=== PATIENT | female | born 1970 | race Caucasian/White ===

== ENCOUNTER 2020-08-09 14:04 | Outpatient (REF) | payer OTHER, SELFPAY ==
--- NOTE | 2020-08-09 14:13 | MM_ITS ---
EXAMINATION: BONE DENSITOMETRY CLINICAL INDICATION: Osteoporosis. COMPARISON: None (current study represents initial baseline exam). TECHNIQUE: Using a [employer] DXA System (software version: 13.1) manufactured by [employer] dual-energy x-ray absorptiometry was performed of the lumbar spine and left hip. The images are of good technical quality. Summary results are attached. FINDINGS: AP SPINE L1-L4: BMD 1.301 g/cm2, Z-score 0.6, T-score 1.0, normal. LEFT FEMUR, NECK: BMD 1.089 g/cm2, Z-score 0.6, T-score 0.4, normal. LEFT FEMUR, TOTAL: BMD 1.090 g/cm2, Z-score 0.5, T-score 0.7, normal. IDENTIFIED RISK FACTORS: Secondary osteoporosis, early menopause, hysterectomy, bilateral oophorectomy, anticonvulsants. HISTORY OF FRACTURE: None listed. MEDICATIONS: Calcium supplements or multivitamin, vitamin D, ERT/SERMS. MM/XR DEXA axial skeleton IMPRESSION: 1. DIAGNOSIS: Normal bone density based on the lowest T-score value of 0.4 in the femoral neck applying World Health Organization criteria. 2. 10-YEAR FRACTURE RISK PREDICTION, FRAX: Major osteoporotic fracture (clinical spine, forearm, hip or shoulder) 3.7%. Hip fracture 0.0%. 3. Treatment Recommendations: NOF guidelines recommend consideration for treatment in postmenopausal women and men age 50 and older presenting with the following: -A hip or vertebral (clinical or morphometric) fracture. -T-score less than or equal to -2.5 at the femoral neck or spine after appropriate evaluation to exclude secondary causes. -Low bone mass at the hip or spine and a 10-year fracture probability by FRAX of greater than or equal to 3% for hip fracture or greater than or equal to 20% for major osteoporotic fracture based on the [place] adapted WHO algorithm. 4. Other Recommendations: All treatment decisions require clinical judgment and consideration of individual patient factors, including patient preferences, comorbidities, previous drug use, risk factors not captured in the FRAX model (e.g. frailty, falls, vitamin D deficiency, increased bone turnover, interval significant decline in bone density) and possible under or overestimation of fracture risk by FRAX. FUTURE SCAN RECOMMENDATION: People with diagnosed cases of osteoporosis or at high risk for fracture should have regular bone mineral density tests. For patients eligible for Medicare, routine testing is allowed once every 2 years. The testing frequency can be increased to one year for patients who have rapidly progressing disease, those who are receiving or discontinuing medical therapy to restore bone mass, or have additional risk factors.
== END 2020-08-09 14:05 | disposition home or self-care (01) ==
LOC: HO.MAMMO 14:04
PROVIDERS: Visit Provider Internal Medicine
DX: Z13.820 Encounter for screening for osteoporosis (principal); Z78.0 Asymptomatic menopausal state; Z90.710 Acquired absence of both cervix and uterus; Z90.722 Acquired absence of ovaries, bilateral; Z79.899 Other long term (current) drug therapy
CPT/HCPCS: 77080

== ENCOUNTER → 2020-12-25 15:30 | Outpatient (BNVA) | payer OTHER, SELFPAY | PROVIDERS: PCP Internal Medicine; Visit Provider Internal Medicine ==

== ENCOUNTER 2021-01-16 07:26 | Outpatient (REF) | payer OTHER, SELFPAY ==
[2021-01-16 08:45] LABS: Anion Gap 12 (12-20); Blood Urea Nitrogen 20 mg/dL (9-16); Calcium 9.2 mg/dL (8.4-10.2); Carbon Dioxide 27 mmol/L (22-29); Chloride 108 mmol/L (96-108); Estimated Glomerular Filt Rate > 60; Glucose Random 87 mg/dL (60-115); Potassium 4.4 mmol/L (3.3-5.1); Sodium 143 mmol/L (135-145)
== END 2021-01-16 07:27 | disposition home or self-care (01) ==
LOC: HO.LAB 07:26
PROVIDERS: PCP Internal Medicine; Visit Provider Psychiatry & Neurology Neurology
DX: G40.209 Localization-related (focal) (partial) symptomatic epilepsy and epileptic syndromes with complex partial seizures, not intractable, without status epilepticus (principal)
CPT/HCPCS: 36415; 80048

== ENCOUNTER → 2021-06-28 15:06 | Outpatient (BNVA) | payer OTHER, SELFPAY | PROVIDERS: PCP Internal Medicine; Visit Provider Internal Medicine ==

== ENCOUNTER 2021-08-06 10:28 | Outpatient (REF) | payer OTHER, SELFPAY ==
[2021-08-06 10:31] LABS: MANUAL DIFF FLAG NO
[2021-08-06 10:43] LABS: Appearance Urine HAZY; Color Urine YELLOW; Glucose Urine UA NEG (NEG); Leukocyte Esterase Urine NEG (NEG); Nitrite Urine NEG (NEG); Specific Gravity - Urine 1.025 (1.005-1.025); Urine Blood NEG (NEG); Urine Ketones NEG (NEG); Urine Protein NEG (NEG-TRACE)
[2021-08-06 11:02] LABS: Basophils Percent Auto 0.8 % (0-2); Eosinophils Absolute Auto 0.1 X10*3/uL (0.0-0.4); Eosinophils Percent Auto 1.5 % (0-4); Hematocrit 37.4 % (37.0-47.0); Hemoglobin 12.1 g/dl (12.0-16.0); Imm Gran Abs Auto 0.01 X10*3/uL (0.00-0.03); Imm Gran Pct Auto 0.2 % (0.0-0.4); Lymphocytes Absolute Auto 1.6 X10*3/uL (1.2-4.9); Lymphocytes Percent Auto 30.9 % (20-40); Mean Corpuscular HGB Conc 32.4 g/dl (31.0-35.0); Mean Corpuscular Hemoglobin 30.1 pg (27.0-33.0); Mean Platelet Volume 11.2 fL (9.4-12.3); Monocytes Absolute Auto 0.4 X10*3/uL (0.1-1.2); Monocytes Percent Auto 8.5 % (2-11); Neutrophils Percent Auto 58.1 % (45-73); Platelet Count 196 X10*3/uL (160-400); Red Blood Count 4.02 X10*6/uL (4.20-5.50); Red Cell Distribution Width 12.8 % (11.0-16.0); White Blood Count 5.2 X10*3/uL (4.8-10.8)
[2021-08-06 11:18] LABS: Alanine Aminotransferase 12 U/L (0-31); Albumin Level 4.2 g/dL (3.5-5.0); Alkaline Phosphatase 56 U/L (39-117); Anion Gap 13 (12-20); Aspartate Amino Transferase 12 U/L (5-31); Bilirubin Total 0.6 mg/dL (0.0-1.0); Blood Urea Nitrogen 16 mg/dL (9-16); Calcium 8.8 mg/dL (8.4-10.2); Carbon Dioxide 24 mmol/L (22-29); Chloride 108 mmol/L (96-108); Cholesterol 203 mg/dL; Estimated Glomerular Filt Rate > 60; Glucose Fasting 91 mg/dL (60-99); HDL Cholesterol 66 mg/dL; Iron 111 mcg/dL (30-160); LDL Cholesterol Calculated 106 mg/dl; Percent Iron Saturation 38 % (15-50); Potassium 3.6 mmol/L (3.3-5.1); Sodium 141 mmol/L (135-145); Total Iron Binding Capacity 293 mcg/dL (228-428); Total Protein 6.7 g/dL (6.5-8.0); Triglycerides 155 mg/dL; Unsaturated Iron Binding 182 ug/dL
[2021-08-06 11:40] LABS: TSH reflex Free T4 1.79 uIU/mL (0.32-4.0)
== END 2021-08-06 10:29 | disposition home or self-care (01) ==
LOC: HO.LNP 10:28
PROVIDERS: Visit Provider Internal Medicine
DX: Z00.00 Encounter for general adult medical examination without abnormal findings (principal); D50.9 Iron deficiency anemia, unspecified; G40.909 Epilepsy, unspecified, not intractable, without status epilepticus; E06.3 Autoimmune thyroiditis
CPT/HCPCS: 80053; 80061; 81003; 83540; 84443; 85025

== ENCOUNTER 2021-09-06 14:42 | Outpatient (REF) | payer OTHER, SELFPAY ==
--- NOTE | ~2021-09-06 | MM_ITS ---
EXAMINATION: BONE DENSITOMETRY CLINICAL INDICATION: Encounter for screening for osteoporosis. COMPARISON: Baseline BD dated 08/09/2020. TECHNIQUE: Using a [employer] DXA System (software version: 13.1) manufactured by [employer], dual-energy x-ray absorptiometry was performed of the lumbar spine and left hip. The images are of good technical quality. Summary results are attached. FINDINGS: AP SPINE L1-L4: Current: BMD 1.297 g/cm2, Z-score 0.8, T-score 1.0, normal, 0.3% decrease from baseline (<5% change is not significant). Baseline: BMD 1.301 g/cm2. LEFT FEMUR, NECK: Current: BMD 1.037 g/cm2, Z-score 0.4, T-score 0.0, normal. Baseline: BMD 1.089 g/cm2. LEFT FEMUR, TOTAL: Current: BMD 1.068 g/cm2, Z-score 0.4, T-score 0.5, normal, 2.0% decrease from baseline (<5% change is not significant). Baseline: BMD 1.090 g/cm2. IDENTIFIED RISK FACTORS: Secondary osteoporosis, menopause, hysterectomy, bilateral oophorectomy. HISTORY OF FRACTURE: None listed. MEDICATIONS: Calcium supplements or multivitamin, vitamin D, ERT/SERMS. MM/XR DEXA axial skeleton IMPRESSION: 1. DIAGNOSIS: Normal bone density based on the lowest T-score value of 0.0 in the femoral neck applying World Health Organization criteria. 2. 10-YEAR FRACTURE RISK PREDICTION, FRAX: Major osteoporotic fracture (clinical spine, forearm, hip or shoulder) 4.2%. Hip fracture 0.1%. 3. Treatment Recommendations: NOF guidelines recommend consideration for treatment in postmenopausal women and men age 50 and older presenting with the following: -A hip or vertebral (clinical or morphometric) fracture. -T-score less than or equal to -2.5 at the femoral neck or spine after appropriate evaluation to exclude secondary causes. -Low bone mass at the hip or spine and a 10-year fracture probability by FRAX of greater than or equal to 3% for hip fracture or greater than or equal to 20% for major osteoporotic fracture based on the [place] adapted WHO algorithm. 4. Other Recommendations: All treatment decisions require clinical judgment and consideration of individual patient factors, including patient preferences, comorbidities, previous drug use, risk factors not captured in the FRAX model (e.g. frailty, falls, vitamin D deficiency, increased bone turnover, interval significant decline in bone density) and possible under or overestimation of fracture risk by FRAX. FUTURE SCAN RECOMMENDATION: People with diagnosed cases of osteoporosis or at high risk for fracture should have regular bone mineral density tests. For patients eligible for Medicare, routine testing is allowed once every 2 years. The testing frequency can be increased to one year for patients who have rapidly progressing disease, those who are receiving or discontinuing medical therapy to restore bone mass, or have additional risk factors.
== END 2021-09-06 14:43 | disposition home or self-care (01) ==
LOC: HO.MAMMO 14:42
PROVIDERS: Visit Provider Internal Medicine
DX: Z13.820 Encounter for screening for osteoporosis (principal); M85.80 Other specified disorders of bone density and structure, unspecified site; Z78.0 Asymptomatic menopausal state; Z90.722 Acquired absence of ovaries, bilateral; Z79.899 Other long term (current) drug therapy
CPT/HCPCS: 77080

== ENCOUNTER 2021-10-01 16:20 | Outpatient (REF) | payer OTHER, SELFPAY ==
--- NOTE | ~2021-10-01 | XR_ITS ---
EXAMINATION: XR CHEST CLINICAL INFORMATION: Cough. COMPARISON: None TECHNIQUE: 2 views of the chest were obtained. FINDINGS: No significant abnormality is noted involving the heart, lungs, mediastinum, bony thorax or soft tissues. XR/XR chest 2V IMPRESSION: Unremarkable examination.
== END 2021-10-01 16:21 | disposition home or self-care (01) ==
LOC: HO.XRAY 16:20
PROVIDERS: PCP Internal Medicine; Visit Provider Allergy & Immunology
DX: R07.89 Other chest pain (principal); R05.9 Cough, unspecified; R09.81 Nasal congestion
CPT/HCPCS: 71046

== ENCOUNTER → 2021-12-25 15:49 | Outpatient (BNVA) | payer OTHER, SELFPAY | PROVIDERS: PCP Internal Medicine; Visit Provider Internal Medicine | DX: Z13.89 Encounter for screening for other disorder (principal) ==

== ENCOUNTER 2022-08-12 11:57 | Outpatient (REF) | payer OTHER, SELFPAY ==
[2022-08-12 12:01] LABS: MANUAL DIFF FLAG NO
[2022-08-12 12:18] LABS: Basophils Percent Auto 0.8 % (0-2); Eosinophils Absolute Auto 0.1 X10*3/uL (0.0-0.4); Eosinophils Percent Auto 2.2 % (0-4); Hematocrit 36.9 % (37.0-47.0); Imm Gran Abs Auto 0.01 X10*3/uL (0.00-0.03); Imm Gran Pct Auto 0.2 % (0.0-0.4); Lymphocytes Absolute Auto 1.6 X10*3/uL (1.2-4.9); Lymphocytes Percent Auto 30.9 % (20-40); Mean Corpuscular HGB Conc 32.5 g/dl (31.0-35.0); Mean Corpuscular Hemoglobin 29.7 pg (27.0-33.0); Mean Corpuscular Volume 91.3 fL (80.0-98.0); Mean Platelet Volume 11.4 fL (9.4-12.3); Monocytes Absolute Auto 0.5 X10*3/uL (0.1-1.2); Monocytes Percent Auto 8.9 % (2-11); Neutrophils Absolute Auto 2.9 x10*3/uL (2.0-8.3); Platelet Count 181 X10*3/uL (160-400); Red Blood Count 4.04 X10*6/uL (4.20-5.50); Red Cell Distribution Width 12.4 % (11.0-16.0); White Blood Count 5.1 X10*3/uL (4.8-10.8)
[2022-08-12 12:47] LABS: Appearance Urine Clear; Color Urine Yellow; Glucose Urine UA Negative (Negative); Leukocyte Esterase Urine Negative (Negative); Nitrite Urine Negative (Negative); Specific Gravity - Urine 1.025 (1.005-1.025); Urine Blood Negative (Negative); Urine Ketones Negative (Negative); Urine Protein Negative (Neg-Trace)
[2022-08-12 12:59] LABS: TSH reflex Free T4 0.01 uIU/mL (0.32-4.0)
[2022-08-12 13:16] LABS: Alanine Aminotransferase 13 U/L (0-31); Albumin Level 4.2 g/dL (3.5-5.0); Alkaline Phosphatase 61 U/L (39-117); Anion Gap 15 (12-20); Aspartate Amino Transferase 13 U/L (5-31); Bilirubin Total 0.3 mg/dL (0.0-1.0); Blood Urea Nitrogen 20 mg/dL (9-16); Calcium 9.1 mg/dL (8.4-10.2); Carbon Dioxide 23 mmol/L (22-29); Chloride 106 mmol/L (96-108); Cholesterol 183 mg/dL; Estimated Glomerular Filt Rate > 60; Glucose Fasting 94 mg/dL (60-99); HDL Cholesterol 60 mg/dL; Iron 100 mcg/dL (30-160); LDL Cholesterol Calculated 92 mg/dl; Percent Iron Saturation 34 % (15-50); Potassium 3.9 mmol/L (3.3-5.1); Sodium 140 mmol/L (135-145); Total Iron Binding Capacity 293 mcg/dL (228-428); Total Protein 6.7 g/dL (6.5-8.0); Triglycerides 159 mg/dL; Unsaturated Iron Binding 193 ug/dL
[2022-08-12 13:30] LABS: RBC Urine 0-2 /HPF (0-2); WBC Urine 0-5 /HPF (0-5)
[2022-08-12 13:31] LABS: Bacteria Urine 2+ (None Seen); Calcium Oxalate Crystals Urine Present; Hyaline Casts Urine 0-2 /LPF (0-2)
[2022-08-12 15:36] LABS: Free T4 (Free Thyroxine) 1.16 ng/dL (0.71-1.85)
== END 2022-08-12 11:58 | disposition home or self-care (01) ==
LOC: HO.LNP 11:57
PROVIDERS: Visit Provider Internal Medicine
DX: Z00.00 Encounter for general adult medical examination without abnormal findings (principal); E06.3 Autoimmune thyroiditis; D50.9 Iron deficiency anemia, unspecified
CPT/HCPCS: 80053; 80061; 81001; 83540; 84439; 84443; 85025

== ENCOUNTER → 2022-10-02 14:41 | Outpatient (BNVA) | payer OTHER, SELFPAY | PROVIDERS: PCP Internal Medicine; Visit Provider Internal Medicine | DX: Z13.89 Encounter for screening for other disorder (principal) ==

== ENCOUNTER 2022-10-09 07:14 | Outpatient (REF) | payer OTHER, SELFPAY ==
[2022-10-09 08:29] LABS: Free T4 (Free Thyroxine) 0.83 ng/dL (0.71-1.85); Thyroid Stimulating Hormone 3.29 uIU/mL (0.32-4.0)
[2022-10-11 00:54] LABS: Triiodothyronine T3 Total 108 ng/dL (76-181)
[2022-10-11 01:49] LABS: Thyroglobulin Antibodies <1 IU/mL (< or = 1); Thyroid Peroxidase Antibodies 8 IU/mL (<9)
[2022-10-14 16:53] LABS: Thyrotropin Receptor Antibody <1.00 IU/L (<=2.00)
[2022-10-15 15:43] LABS: Thyroid Stimulating Immunoglob <89 % baseline (<140)
== END 2022-10-09 07:15 | disposition home or self-care (01) ==
LOC: HO.LAB 07:14
PROVIDERS: PCP Internal Medicine; Visit Provider Internal Medicine
DX: E05.90 Thyrotoxicosis, unspecified without thyrotoxic crisis or storm (principal)
CPT/HCPCS: 36415; 83520; 84439; 84443; 84445; 84480; 86376; 86800

== ENCOUNTER 2022-10-16 15:57 | Outpatient (REF) | payer OTHER, SELFPAY ==
--- NOTE | ~2022-10-16 | US_ITS ---
EXAMINATION: US THYROID CLINICAL INFORMATION: Thyrotoxicosis, unspecified without thyrotoxic crisis or storm. COMPARISON: None TECHNIQUE: Linear transducer grayscale and color Doppler examination with attention to the region of the thyroid. FINDINGS: SIZE: Measurements of the thyroid lobes and nodules are given in sagittal, anteroposterior and transverse dimensions respectively. Right Thyroid Lobe: 4.7 x 1.3 x 1.8 cm, volume 5.8 mL. Parenchyma: The gland echotexture is heterogeneous. Thyroid vascularity is normal. Left Thyroid Lobe: 4.7 x 1.2 x 1.7 cm, volume 5.0 mL. Parenchyma: The gland echotexture is heterogeneous. Thyroid vascularity is normal. Isthmus: 0.4 cm in maximum AP dimension. No focal thyroid nodule is seen. NODES: No lymphadenopathy is seen in the tissue surrounding the thyroid gland. US/US thyroid IMPRESSION: Unremarkable thyroid ultrasound. ACR TI-RADS RECOMMENDATION REFERENCE: Ultrasound-guided fine-needle aspiration, followup ultrasound, no further follow up. * TR1 (0 point) and TR 2 (2 points): No FNA or follow up. * TR3 (3 points): FNA if more than or equal to 2.5 cm in maximum dimension, followup ultrasound in 1, 3 and 5 years if 1.5 to 2.4 cm in maximum dimension. * TR4 (4-6 points): FNA if more than or equal to 1.5 cm in maximum dimension, followup ultrasound in 1, 2, 3 and 5 years if 1 to 1.4 cm in maximum dimension. * TR5 (more than or equal to 7 points): FNA if more than or equal to 1 cm in maximum dimension, followup ultrasound every year for 5 years if 0.5 to 0.9 cm in maximum dimension. * TR3, TR4 or TR5 nodules that are below the size threshold for followup receive no follow up.
== END 2022-10-16 15:58 | disposition home or self-care (01) ==
LOC: HO.US 15:57
PROVIDERS: PCP Internal Medicine; Visit Provider Internal Medicine
DX: E05.90 Thyrotoxicosis, unspecified without thyrotoxic crisis or storm (principal)
CPT/HCPCS: 76536

== ENCOUNTER → 2022-11-28 14:58 | Outpatient (BNVA) | payer OTHER, SELFPAY | PROVIDERS: PCP Internal Medicine; Visit Provider Internal Medicine | DX: Z13.89 Encounter for screening for other disorder (principal) ==

== ENCOUNTER → 2022-12-24 14:54 | Outpatient (BNVA) | payer OTHER, SELFPAY | PROVIDERS: PCP Internal Medicine; Visit Provider Internal Medicine | DX: Z13.89 Encounter for screening for other disorder (principal) ==

== ENCOUNTER 2023-01-03 14:00 | Outpatient (RCR) | payer OTHER, SELFPAY ==
[2023-01-02 08:10] VITALS: BP 100/65
== END 2023-02-06 13:14 | disposition home or self-care (01) ==
LOC: HO.PT 14:00
PROVIDERS: PCP Internal Medicine; Visit Provider Internal Medicine
DX: R42 Dizziness and giddiness (principal)
CPT/HCPCS: 97140; 97161

== ENCOUNTER 2023-06-19 15:28 | Outpatient (AMB) | payer OTHER, SELFPAY ==
[2023-06-19 15:42] VITALS: BP 102/72; PULSE 74; O2SAT 97; BMI 37.8
--- NOTE | 2023-06-19 15:42 | MHC.OFFVIS ---
Intake Vital Signs 06/19/23 15:42 Height 5 ft 4 in Weight 220 lb BMI 37.8 BP 102/72 Blood Pressure Location Lt brachial Position Sitting Pulse 74 Pulse Source Pulse Oximeter Pulse Oximetry (%) 97 Oxygen Delivery Method Room Air Intake Visit Reasons: Obstructive sleep apnea Intake Note: pt is here for follow up and needs replacement machine, her door is broken. 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 She is a very regular user of CPAP, and in addition she uses mode definite neural 200 mg daily to overcome her somnolence. Has been very stable. She states that CPAP has become part of her life. The current CPAP machine is about, 10 years old . The door is broken, but she is still using. It every night Weight has remained stable. [facility] Medical History Arteriovenous malformation Hyperthyroidism Post covid-19 condition, unspecified Somnolence, daytime WHITNEY (obstructive sleep apnea) Obesity Surgical History Hx of hysterectomy Hx of brain surgery Hx of knee surgery Family History Father Medical history unknown Mother Medical history unknown Social History Alcohol intake: current Patient Tobacco Use Status: Former Tobacco user Years Smoked: Quit 1992 Review of Systems Const All systems reviewed & are unremarkable except as noted in HPI and below Denies snoring Eyes Reports no additional complaints ENT Reports no additional complaints Card Denies chest pain, Denies irregular heart rhythm and Denies leg edema Resp Denies cough, Denies snoring and Denies wheezing GI Reports no additional complaints Reports no additional complaints Musc Reports no additional complaints Skin/Breast Reports system reviewed and no additional complaints, except as documented Neuro Reports no additional complaints Psych Reports no additional complaints Aller/Immun Denies wheezing Physical Exam Vital Signs: Last Vital Signs Pulse 74 06/19/23 15:42 BP 102/72 06/19/23 15:42 Pulse Ox 97 06/19/23 15:42 Oxygen Delivery Method Room Air 06/19/23 15:42 BMI result Body Mass Index 37.8 Const General: healthy appearing, comfortable, no acute distress, alert and awake Orientation/consciousness: patient oriented x3 HEENT Head: Yes normal to inspection General nose exam: No nasal polyps present and No nasal discharge present Face and sinus: Yes sinuses nontender Mouth: oropharynx normal Throat: Yes posterior oropharynx normal Eyes General: appearance normal, both eyes and all related structures Neck Neck: Yes normal visual inspection, Yes no lymphadenopathy, Yes trachea midline and Yes no JVD Thyroid: Thyroid normal Chest Chest palpation & inspection: normal inspection of the chest, normal palpation of entire chest wall and no tenderness Resp Effort & Inspection: normal respiratory effort Auscultation: clear to auscultation bilaterally, no rales and no wheezes Percussion: percussion normal Cardio Palpation: normal PMI Rate: regular rate Rhythm: regular rhythm Heart sounds: no gallops and no murmurs Peripheral pulses: Peripheral pulses 2+ throughout GI Palpation (GI): Soft to palpation, nontender, No hepatosplenomegaly present and no masses Auscultation: normal bowel sounds Back/Spine/Pelvis Thoracic/Lumbar Spine: thoracic and lumbar spine normal to inspection Skin General skin exam: no rashes or lesions noted Neuro General: patient oriented x3 and no focal motor deficits Cranial nerves: Yes CN's II-XII intact bilaterally Extrem General: Yes normal to inspection, Yes no clubbing, cyanosis or edema and Yes no calf tenderness Psych Appearance: grossly normal and well kempt Speech and movement: Normal speech and movement present Results Reviewed Results Reviewed: Compliance report not available. She has an old model which does not transmit compliance data. Assessment & Plan Assessment & Plan (1) Obesity: Comment: SHE HAS MODERATE OBESITY, STABLE . PATIENT IS ENCOURAGED TO CONTINUE DIETARY RESTRICTION AND WALK AT LEAST 2 MILES EVERY DAY. Code(s): E66.9 - Obesity, unspecified (2) WHITNEY (obstructive sleep apnea): Comment: SHE HAS LONG-STANDING HISTORY OF OBSTRUCTIVE SLEEP APNEA. SHE IS DEPENDENT UPON USING CPAP AT NIGHT. CONTINUES TO USE THE CPAP VERY OPTIMALLY AND DOING WELL. SAY IS THAT HER CPAP DEVICE IS SOMEWHAT BROKEN, ESPECIALLY THE DOOR FOR THE FILTER THE DEVICE, BEING ABOUT 10 YEARS OLD SHE, SHE IS IN TITLE TO GET A NEW MACHINE FOR WHICH THE ORDERS ARE BEING SENT. Code(s): G47.33 - Obstructive sleep apnea (adult) (pediatric) (3) Somnolence, daytime: Comment: IN SPITE OF USING CPAP VERY OPTIMALLY SHE CONTINUES TO HAVE DAYTIME SOMNOLENCE . FOR THAT REASON SHE NEEDS TO TAKE PROVIGIL( MODAFANIL) 200 DAILY. SHE SPLITS IT IN 100 B.I.D. Code(s): R40.0 - Somnolence Coding Level of Care Code Est Pt Level 3 (33809) Diagnoses Obesity E66.9 WHITNEY (obstructive sleep apnea) G47.33 Somnolence, daytime R40.0
== END 2023-06-19 16:01 | disposition home or self-care (01) ==
PROVIDERS: PCP Internal Medicine; Visit Provider Internal Medicine
DX: E66.9 Obesity, unspecified (principal); G47.33 Obstructive sleep apnea (adult) (pediatric); R40.0 Somnolence
CPT/HCPCS: 99213

== ENCOUNTER → 2023-06-19 15:28 | Outpatient (BNVA) | payer OTHER, SELFPAY | PROVIDERS: PCP Internal Medicine; Visit Provider Internal Medicine ==

== ENCOUNTER 2023-08-18 10:49 | Outpatient (REF) | payer OTHER, SELFPAY ==
[2023-08-18 10:54] LABS: MANUAL DIFF FLAG NO
[2023-08-18 11:06] LABS: Basophils Absolute Auto 0.1 X10*3/uL (0.0-0.2); Basophils Percent Auto 0.9 % (0-2); Eosinophils Absolute Auto 0.1 X10*3/uL (0.0-0.4); Eosinophils Percent Auto 1.9 % (0-4); Hematocrit 36.2 % (37.0-47.0); Lymphocytes Absolute Auto 1.5 X10*3/uL (1.2-4.9); Lymphocytes Percent Auto 27.1 % (20-40); Mean Corpuscular HGB Conc 33.1 g/dl (31.0-35.0); Mean Corpuscular Hemoglobin 30.1 pg (27.0-33.0); Mean Corpuscular Volume 90.7 fL (80.0-98.0); Mean Platelet Volume 10.8 fL (9.4-12.3); Monocytes Absolute Auto 0.5 X10*3/uL (0.1-1.2); Monocytes Percent Auto 9.3 % (2-11); Neutrophils Absolute Auto 3.3 x10*3/uL (2.0-8.3); Neutrophils Percent Auto 60.8 % (45-73); Platelet Count 181 X10*3/uL (160-400); Red Blood Count 3.99 X10*6/uL (4.20-5.50); Red Cell Distribution Width 12.8 % (11.0-16.0); White Blood Count 5.4 X10*3/uL (4.8-10.8)
[2023-08-18 11:24] LABS: Appearance Urine Clear; Color Urine Yellow; Glucose Urine UA Negative (Negative); Leukocyte Esterase Urine Negative (Negative); Nitrite Urine Negative (Negative); Specific Gravity - Urine 1.025 (1.005-1.025); Urine Blood Negative (Negative); Urine Ketones Negative (Negative); Urine Protein Negative (Neg-Trace)
[2023-08-18 11:27] LABS: Bacteria Urine None Seen (None Seen); Hyaline Casts Urine 0-2 /LPF (0-2); WBC Urine 0-5 /HPF (0-5)
[2023-08-18 11:34] LABS: Alanine Aminotransferase 11 U/L (0-31); Albumin Level 4.2 g/dL (3.5-5.0); Alkaline Phosphatase 57 U/L (39-117); Anion Gap 10 (12-20); Aspartate Amino Transferase 13 U/L (5-31); Bilirubin Total 0.4 mg/dL (0.0-1.0); Blood Urea Nitrogen 16 mg/dL (9-16); Calcium 9.3 mg/dL (8.4-10.2); Carbon Dioxide 26 mmol/L (22-29); Chloride 108 mmol/L (96-108); Cholesterol 201 mg/dL (<200); Estimated Glomerular Filt Rate > 60; Glucose Fasting 92 mg/dL (60-99); HDL Cholesterol 63 mg/dL (>40); Iron 98 mcg/dL (30-160); LDL Cholesterol Calculated 107 mg/dL (<100); Percent Iron Saturation 37 % (15-50); Potassium 3.5 mmol/L (3.3-5.1); Sodium 140 mmol/L (135-145); Total Iron Binding Capacity 267 mcg/dL (228-428); Triglycerides 156 mg/dL (<150); Unsaturated Iron Binding 169 ug/dL
== END 2023-08-18 10:50 | disposition home or self-care (01) ==
LOC: HO.LNP 10:49
PROVIDERS: Visit Provider Internal Medicine
DX: Z00.00 Encounter for general adult medical examination without abnormal findings (principal); E06.3 Autoimmune thyroiditis; D50.9 Iron deficiency anemia, unspecified
CPT/HCPCS: 80053; 80061; 81001; 83540; 84443; 85025

== ENCOUNTER 2023-08-26 10:43 | Outpatient (REF) | payer OTHER, SELFPAY ==
[2023-08-26 11:17] LABS: Appearance Urine Turbid; Color Urine Yellow; Glucose Urine UA Negative (Negative); Leukocyte Esterase Urine Negative (Negative); Nitrite Urine Negative (Negative); PH 7.5 (5.0-9.0); Urine Blood Negative (Negative); Urine Ketones Negative (Negative); Urine Protein Negative (Neg-Trace)
[2023-08-26 11:27] LABS: Bacteria Urine None Seen (None Seen); Hyaline Casts Urine 0-2 /LPF (0-2); RBC Urine 0-2 /HPF (0-2); Squamous Epithelial Cell Urine 0-2 /HPF (0-2); WBC Urine 0-5 /HPF (0-5)
== END 2023-08-26 10:44 | disposition home or self-care (01) ==
LOC: HO.LNP 10:43
PROVIDERS: Visit Provider Internal Medicine
DX: R31.29 Other microscopic hematuria (principal)
CPT/HCPCS: 81001

== ENCOUNTER 2024-01-26 14:34 | Outpatient (AMB) | payer OTHER, SELFPAY ==
[2024-01-26 14:50] VITALS: BP 122/72; PULSE 74; O2SAT 97; BMI 36.2
--- NOTE | 2024-01-26 14:50 | A.OFFVIS_ITS ---
Vital Signs 01/26/24 14:50 Height 5 ft 4 in Weight 211 lb BMI 36.2 BP 122/72 Blood Pressure Location Lt brachial Position Sitting Pulse 74 Pulse Source Pulse Oximeter Pulse Oximetry (%) 97 Oxygen Delivery Method Room Air Intake Visit Reasons: Obstructive sleep apnea Intake Note: pt is here for follow up and states she is using a new cpap, and doing well. 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 She is a regular user of CPAP, without which she has hard time to sleep. A few weeks ago she was on a cruise for 1 week and missed using the CPAP. She got new CPAP device which is very good and she is happy with that. She likes fullface mask because she is a mouth breather, She still has to take modafinil 200 mg daily in the morning otherwise she remains is somnolent, in spite of using CPAP. She is starting to walk every day and has lost about 9 lb of weight in the last 6 months. [facility] Medical History Arteriovenous malformation Hyperthyroidism Post covid-19 condition, unspecified Somnolence, daytime WHITNEY (obstructive sleep apnea) Obesity Surgical History Hx of hysterectomy Hx of brain surgery Hx of knee surgery Family History Father Medical history unknown Mother Medical history unknown Social History Alcohol intake: current Patient Tobacco Use Status: Former Tobacco user Years Smoked: Quit 1992 Review of Systems Const All systems reviewed & are unremarkable except as noted in HPI and below Denies snoring Eyes Reports no additional complaints ENT Reports no additional complaints Card Denies chest pain, Denies irregular heart rhythm and Denies leg edema Resp Denies cough, Denies snoring and Denies wheezing GI Reports no additional complaints Reports no additional complaints Musc Reports no additional complaints Skin/Breast Reports system reviewed and no additional complaints, except as documented Neuro Reports no additional complaints Psych Reports no additional complaints Aller/Immun Denies wheezing Physical Exam Vital Signs: Last Vital Signs Pulse 74 01/26/24 14:50 BP 122/72 01/26/24 14:50 Pulse Ox 97 01/26/24 14:50 Oxygen Delivery Method Room Air 01/26/24 14:50 BMI result Body Mass Index 36.2 Const General: healthy appearing, comfortable, no acute distress, alert and awake Orientation/consciousness: patient oriented x3 HEENT Head: Yes normal to inspection General nose exam: No nasal polyps present and No nasal discharge present Face and sinus: Yes sinuses nontender Mouth: oropharynx normal Throat: Yes posterior oropharynx normal Eyes General: appearance normal, both eyes and all related structures Neck Neck: Yes normal visual inspection, Yes no lymphadenopathy, Yes trachea midline and Yes no JVD Thyroid: Thyroid normal Chest Chest palpation & inspection: normal inspection of the chest, normal palpation of entire chest wall and no tenderness Resp Effort & Inspection: normal respiratory effort Auscultation: clear to auscultation bilaterally, no rales and no wheezes Percussion: percussion normal Cardio Palpation: normal PMI Rate: regular rate Rhythm: regular rhythm Heart sounds: no gallops and no murmurs Peripheral pulses: Peripheral pulses 2+ throughout GI Palpation (GI): Soft to palpation, nontender, No hepatosplenomegaly present and no masses Auscultation: normal bowel sounds Back/Spine/Pelvis Thoracic/Lumbar Spine: thoracic and lumbar spine normal to inspection Skin General skin exam: no rashes or lesions noted Neuro General: patient oriented x3 and no focal motor deficits Cranial nerves: Yes CN's II-XII intact bilaterally Extrem General: Yes normal to inspection, Yes no clubbing, cyanosis or edema and Yes no calf tenderness Psych Appearance: grossly normal and well kempt Speech and movement: Normal speech and movement present Results Reviewed Results Reviewed: Compliance report is reviewed. She use 17/30 nights, 57%. This breech in using the CPAP was due to her vocation for 1 week and then for 3- 4 days she had sinus congestion when she could not use the CPAP. When she uses her sleep apnea is fully controlled with residual AHI only 0.3 Assessment & Plan Assessment & Plan (1) Obesity: Comment: SHE HAS MODERATE OBESITY, STABLE . TRYING TO WATCH HER DIET AND START WALKING. HAS LOST 9 LB SINCE LAST VISIT Code(s): E66.9 - Obesity, unspecified Category: Medical Plan: PATIENT IS ENCOURAGED TO CONTINUE DIETARY RESTRICTION AND WALK AT LEAST 2 MILES EVERY DAY. (2) WHITNEY (obstructive sleep apnea): Comment: SHE HAS LONG-STANDING HISTORY OF OBSTRUCTIVE SLEEP APNEA. SHE IS DEPENDENT UPON USING CPAP AT NIGHT. CONTINUES TO USE THE CPAP VERY OPTIMALLY AND DOING WELL. NOW SHE HAS NEW CPAP MACHINE AND IS VERY HAPPY WITH THAT. Code(s): G47.33 - Obstructive sleep apnea (adult) (pediatric) Category: Medical Plan: ADVISED TO KEEP ON USING THE CPAP EVERY NIGHT ALSO ADVISE THAT IF SHE GOES FOR VACATION MORE THAN A FEW DAYS THEN SHE SHOULD TAKE HER CPAP ALONG . (3) Somnolence, daytime: Comment: IN SPITE OF USING CPAP VERY OPTIMALLY SHE CONTINUES TO HAVE DAYTIME SOMNOLENCE . FOR THIS REASON SHE NEEDS TO TAKE PROVIGIL( MODAFANIL) 200 DAILY. SHE SPLITS IT IN 100 B.I.D. Code(s): R40.0 - Somnolence Category: Medical Plan: ABOVE Coding Level of Care Code Est Pt Level 3 (41547) Diagnoses Obesity E66.9 WHITNEY (obstructive sleep apnea) G47.33 Somnolence, daytime R40.0
== END 2024-01-26 15:10 | disposition home or self-care (01) ==
PROVIDERS: PCP Internal Medicine; Visit Provider Internal Medicine
DX: E66.9 Obesity, unspecified (principal); G47.33 Obstructive sleep apnea (adult) (pediatric); R40.0 Somnolence
CPT/HCPCS: 99213

== ENCOUNTER → 2024-01-26 14:34 | Outpatient (BNVA) | payer OTHER, SELFPAY | PROVIDERS: PCP Internal Medicine; Visit Provider Internal Medicine ==

== ENCOUNTER 2024-08-11 15:28 | Outpatient (AMB) | payer OTHER, SELFPAY ==
--- NOTE | 2024-08-11 15:51 | MHC.OFFVIS ---
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
[2024-08-11 15:52] VITALS: BP 102/78; PULSE 66; O2SAT 99; BMI 38.0
--- NOTE | 2024-08-11 15:52 | MHC.OFFVIS ---
Vital Signs 08/11/24 15:52 Height 5 ft 4 in Weight 221 lb 9.033 oz BMI 38.0 BP 102/78 Blood Pressure Location Lt brachial Position Sitting Pulse 66 Pulse Source Pulse Oximeter Pulse Oximetry (%) 99 Oxygen Delivery Method Room Air Intake Visit Reasons: Obstructive sleep apnea Allergies ENVIOROMENTAL ALLERGIES Allergy (Uncoded 08/11/24 16:01) Unknown Medication List - Last Reconciled 08/11/24 by Claudio Ledbetter MD ascorbic acid (vitamin C) 250 mg PO DAILY cholecalciferol (vitamin D3) 50 mcg PO DAILY estradiol patches transdermal ferrous sulfate (Feosol) 325 mg PO DAILY ipratropium bromide intranasal modafinil 200 mg PO DAILY omega-3 fatty acids (Fish Oil Concentrate) 1,000 mg PO DAILY topiramate 100 mg PO BID Do you need a note to return to daycare/school/sports/work: No HPI HPI Obstructive sleep apnea: Details: OLENA Reynaga IS 54 YEARS OLD, GROSSLY OBESE, WITH HISTORY OF OBSTRUCTIVE SLEEP APNEA FOR MANY YEARS. USES CPAP VERY REGULARLY EVERY NIGHT, AND SLEEPS BATH. SHE HAS BECOME VERY MUCH USED TO THE CPAP, CAN NOT SLEEP WELL WITHOUT IT. NO ISSUES WITH THE MASK OR CPAP DEVICE AT THIS TIME. SHE TRIES TO KEEP WEIGHT UNDER CONTROL, BUT THIS TIME HAS GAINED SOME WEIGHT. SHE IS WALKING 2-3 MILES ON A DAILY BASIS . SHE HAS HISTORY OF DAYTIME SOMNOLENCE EVEN WITH THE USE OF CPAP. AND THIS IS CONTROLLED WITH MODAFINIL 200 MG DAILY. * , FROM THE START OF NEW 'S SHE IS THINKING OF CHANGING HER EMPLOYMENT. [employer] [facility] Medical History Arteriovenous malformation Hyperthyroidism Post covid-19 condition, unspecified Somnolence, daytime WHITNEY (obstructive sleep apnea) Obesity Surgical History Hx of hysterectomy Hx of brain surgery Hx of knee surgery Family History Father Medical history unknown Mother Medical history unknown Social History Alcohol intake: current Patient Tobacco Use Status: Former Tobacco user Years Smoked: Quit 1992 Review of Systems Const All systems reviewed & are unremarkable except as noted in HPI and below Denies snoring Eyes Reports no additional complaints ENT Reports no additional complaints Card Denies chest pain, Denies irregular heart rhythm and Denies leg edema Resp Denies cough, Denies snoring and Denies wheezing GI Reports no additional complaints Reports no additional complaints Musc Reports no additional complaints Skin/Breast Reports system reviewed and no additional complaints, except as documented Neuro Reports no additional complaints Psych Reports no additional complaints Aller/Immun Denies wheezing Physical Exam Vital Signs: Last Vital Signs Pulse 66 08/11/24 15:52 BP 102/78 08/11/24 15:52 Pulse Ox 99 08/11/24 15:52 Oxygen Delivery Method Room Air 08/11/24 15:52 BMI result Body Mass Index 38.0 Const General: healthy appearing, comfortable, no acute distress, alert and awake Orientation/consciousness: patient oriented x3 HEENT Head: Yes normal to inspection General nose exam: No nasal polyps present and No nasal discharge present Face and sinus: Yes sinuses nontender Mouth: oropharynx normal Throat: Yes posterior oropharynx normal Eyes General: appearance normal, both eyes and all related structures Neck Neck: Yes normal visual inspection, Yes no lymphadenopathy, Yes trachea midline and Yes no JVD Thyroid: Thyroid normal Chest Chest palpation & inspection: normal inspection of the chest, normal palpation of entire chest wall and no tenderness Resp Effort & Inspection: normal respiratory effort Auscultation: clear to auscultation bilaterally, no rales and no wheezes Percussion: percussion normal Cardio Palpation: normal PMI Rate: regular rate Rhythm: regular rhythm Heart sounds: no gallops and no murmurs Peripheral pulses: Peripheral pulses 2+ throughout GI Palpation (GI): Soft to palpation, nontender, No hepatosplenomegaly present and no masses Auscultation: normal bowel sounds Back/Spine/Pelvis Thoracic/Lumbar Spine: thoracic and lumbar spine normal to inspection Skin General skin exam: no rashes or lesions noted Neuro General: patient oriented x3 and no focal motor deficits Cranial nerves: Yes CN's II-XII intact bilaterally Extrem General: Yes normal to inspection, Yes no clubbing, cyanosis or edema and Yes no calf tenderness Psych Appearance: grossly normal and well kempt Speech and movement: Normal speech and movement present Results Reviewed Results Reviewed: COMPLIANCE REPORT FOR THE LAST 30 NIGHTS IS REVIEWED. SHE HAS USED NIGHTS THE FEW NIGHTS THAT SHE MISSED IS WHEN SHE WAS AFTER TOWN. AVERAGE USE IT PER NIGHT 6 HOURS 52 MINUTES. SHE IS ON RELATIVELY LOW PRESSURE OF 8 CM. RESIDUAL AHI ONLY 0.4 Assessment & Plan Assessment & Plan (1) Obesity: Comment: SHE HAS MODERATE OBESITY, STABLE . TRYING TO WATCH HER DIET AND START WALKING. IN THE LAST 6 MONTHS SHE HAS REGAINED ABOUT 10 LB OF WEIGHT THAT SHE HAD LOST BEFORE. Code(s): E66.9 - Obesity, unspecified Category: Medical Plan: ADVISED TO BECOME MORE ACTIVE, WALK ABOUT 7000 FT DAILY. WATCH DIET MORE CAREFULLY. (2) WHITNEY (obstructive sleep apnea): Comment: SHE HAS LONG-STANDING HISTORY OF OBSTRUCTIVE SLEEP APNEA. SHE IS DEPENDENT UPON USING CPAP AT NIGHT. CONTINUES TO USE THE CPAP VERY OPTIMALLY AND DOING WELL. HER NEW CPAP MACHINE IS WORKING WELL AND SHE IS HAPPY WITH THAT. Code(s): G47.33 - Obstructive sleep apnea (adult) (pediatric) Category: Medical Plan: COMMENDED FOR GOOD COMPLIANCE AND ADVISED TO CONTINUE USING IT EVERY NIGHT. (3) Somnolence, daytime: Comment: IN SPITE OF USING CPAP VERY OPTIMALLY SHE CONTINUES TO HAVE DAYTIME SOMNOLENCE . FOR THIS REASON SHE NEEDS TO TAKE PROVIGIL( MODAFANIL) 200 DAILY. Code(s): R40.0 - Somnolence Category: Medical Plan: CONTINUE TO TAKE MODAFINIL 200 MG DAILY. MAY SPLIT INTO 2 AND TAKE 100 B.I.D.. Coding Level of Care Code Est Pt Level 3 (17033) Diagnoses Obesity E66.9 WHITNEY (obstructive sleep apnea) G47.33 Somnolence, daytime R40.0
== END 2024-08-11 16:11 | disposition home or self-care (01) ==
PROVIDERS: PCP Internal Medicine; Visit Provider Internal Medicine
DX: E66.9 Obesity, unspecified (principal); G47.33 Obstructive sleep apnea (adult) (pediatric); R40.0 Somnolence
CPT/HCPCS: 99213

== ENCOUNTER 2024-08-23 07:34 | Outpatient (REF) | payer OTHER, SELFPAY ==
[2024-08-23 07:52] LABS: MANUAL DIFF FLAG NO
[2024-08-23 08:05] LABS: Appearance Urine Turbid; Color Urine Yellow; Glucose Urine UA Negative (Negative); Leukocyte Esterase Urine Negative (Negative); Nitrite Urine Negative (Negative); PH 8.5 (5.0-9.0); Urine Blood Negative (Negative); Urine Ketones Negative (Negative); Urine Protein Negative (Neg-Trace)
[2024-08-23 08:05] LABS: Basophils Absolute Auto 0.1 X10*3/uL (0.0-0.2); Basophils Percent Auto 1.2 % (0-2); Eosinophils Absolute Auto 0.1 X10*3/uL (0.0-0.4); Eosinophils Percent Auto 1.6 % (0-4); Hematocrit 36.1 % (37.0-47.0); Hemoglobin 11.9 g/dl (12.0-16.0); Imm Gran Abs Auto 0.01 X10*3/uL (0.00-0.03); Imm Gran Pct Auto 0.2 % (0.0-0.4); Lymphocytes Absolute Auto 1.3 X10*3/uL (1.2-4.9); Lymphocytes Percent Auto 26.4 % (20-40); Mean Corpuscular Hemoglobin 30.3 pg (27.0-33.0); Mean Corpuscular Volume 91.9 fL (80.0-98.0); Mean Platelet Volume 10.3 fL (9.4-12.3); Monocytes Absolute Auto 0.4 X10*3/uL (0.1-1.2); Monocytes Percent Auto 7.7 % (2-11); Neutrophils Absolute Auto 3.1 x10*3/uL (2.0-8.3); Neutrophils Percent Auto 62.9 % (45-73); Platelet Count 186 X10*3/uL (160-400); Red Blood Count 3.93 X10*6/uL (4.20-5.50); Red Cell Distribution Width 13.1 % (11.0-16.0); White Blood Count 4.9 X10*3/uL (4.8-10.8)
[2024-08-23 08:31] LABS: Alanine Aminotransferase 12 U/L (0-31); Albumin Level 4.2 g/dL (3.5-5.0); Alkaline Phosphatase 64 U/L (39-117); Anion Gap 12 (12-20); Aspartate Amino Transferase 15 U/L (5-31); Bilirubin Total 0.4 mg/dL (0.0-1.0); Blood Urea Nitrogen 13 mg/dL (9-16); Calcium 9.5 mg/dL (8.4-10.2); Carbon Dioxide 26 mmol/L (22-29); Chloride 104 mmol/L (96-108); Cholesterol 200 mg/dL (<200); Estimated Glomerular Filt Rate > 60; Glucose Fasting 98 mg/dL (60-99); HDL Cholesterol 55 mg/dL (>40); Iron 126 mcg/dL (30-160); LDL Cholesterol Calculated 99 mg/dL (<100); Percent Iron Saturation 46 % (15-50); Potassium 3.9 mmol/L (3.3-5.1); Sodium 138 mmol/L (135-145); Total Iron Binding Capacity 272 mcg/dL (228-428); Total Protein 6.8 g/dL (6.5-8.0); Triglycerides 230 mg/dL (<150); Unsaturated Iron Binding 146 ug/dL
== END 2024-08-23 07:35 | disposition home or self-care (01) ==
LOC: HO.LAB 07:34
PROVIDERS: PCP Internal Medicine; Visit Provider Internal Medicine
DX: Z00.00 Encounter for general adult medical examination without abnormal findings (principal); D50.9 Iron deficiency anemia, unspecified
CPT/HCPCS: 36415; 80053; 80061; 81003; 83540; 85025

== ENCOUNTER 2024-09-21 08:00 | Outpatient (RCR) | payer OTHER, SELFPAY ==
[2024-09-14 07:57] VITALS: BP 100/51; PULSE 63
--- NOTE | 2024-09-14 09:18 | MHC.PT.EP ---
[facility] [place] Office [place] Office [place] Office [address] Jamal Jha [address] [place] [address] [phone] F: [phone] F: [phone] F: [phone] F: [phone] Physical Therapy Plan of Care Date of Evaluation: 09/14/24 Date of Surgery: NA Diagnosis: Vertigo Assessment: Cesar is a 54 year old female who is referred to PT for vertigo . She reports of having h/o vertigo for about 9 years and was in PT a few years back for the same. She felt better with PT however her symptoms returned about 2 months back. She currently reports of having spinning dizziness when she moves from sit to stand, supine to sit and occasionally when she looks up, and rolls in bed. Her symptoms last only for a few seconds. Denies nausea or vomiting. On PT examination she presented with intact saccades, smooth pursuit, visual tracking, negative head thrust and positive for dizziness in R hernandez pike. She lives with her and is independent with all ADLS but when dizzy moves slowly through them. 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 She would benefit from skilled PT to address the aforementioned impairments and improve tolerance to functional activities. Frequency and Duration: The patient will be seen 2/week for 4 weeks Short Term Goals: Longterm Goals: Patient to be educated on symptoms and indications to return to therapy when needed min 4 weeks. Pt will be negative for nystagmus or reports of vertigo in all diagnostic positions bilaterally to resolution of BPPV in 4 weeks. Patient to be able to functionally move in all planes and directions without provocation of dizziness to show return to PLOF in 4 weeks. Treatment Plan: Modalities to reduce pain, spasms and effusion. Manual therapy to restore motion and function. Therapeutic exercise to improve strength and flexibility. Neuromuscular re-education for posture and balance. Therapeutic activities to return to functional activities of daily living. Electronically signed by: Maria Dolores Gonzalez PT DPT Please sign and return to therapist. Thank you for your referral.
--- NOTE | 2024-11-02 09:28 | MHC.PT.DC ---
[facility] [place] Office [place] Office [place] Office [address] [phone] F: [phone] F: [phone] F: [phone] F: [phone] Physical Therapy Discharge Report Diagnosis: Vertigo Date of Surgery: NA Date of Evaluation: 09/14/24 Date of Discharge: 11/02/24 Treatments to Date: 2 Cancellations to Date: 0 No Shows to Date: 0 Discharge Status: Achieved Goals Improved Function Independent with HEP Discharge Summary: Cesar has had no symptoms of vestibular dysfunction in over a month. She is therefore being d/c from PT. Electronically signed by: Maria Dolores Gonzalez PT DPT Please sign and return to therapist. Thank you for your referral.
== END 2024-11-02 09:29 | disposition home or self-care (01) ==
LOC: HO.PT 08:00
PROVIDERS: PCP Internal Medicine; Visit Provider Internal Medicine
DX: H81.4 Vertigo of central origin (principal)
CPT/HCPCS: 95992; 97112; 97161

== ENCOUNTER 2024-12-10 13:27 | Outpatient (REF) | payer OTHER, SELFPAY ==
--- NOTE | ~2024-12-10 | MM_ITS ---
EXAMINATION: DXA BONE DENSITY AXIAL HISTORY: Estrogen deficiency TECHNIQUE: Big Frame Dual energy absorptiometry (DEXA) of the lumbar spine, total left hip, and femoral neck was performed. COMPARISON: Comparison is made with the prior examination dated 09/06/2021. FINDINGS: The bone mineral density of the lumbar spine is 1.309 with a T-score of 1.1, and a Z-score of 0.8. This represents a BMD change of 0.9% compared to the prior exam. This is not statistically significant. The bone mineral density of the left total hip is 1.066 with a T-score of 0.5, and a Z-score of 0.4. This represents a BMD change of -0.2% compared to the prior exam. This is not statistically significant. The bone mineral density of the left femoral neck is 1.050 with a T-score of 0.1, and a Z-score of 0.4. This represents a BMD change of 1.3% compared to the prior exam. FRACTURE RISK: The FRAX index suggests a ten year probability of major osteoporotic fracture of 4.8%, and of hip fracture 0.1%. MM/XR DEXA axial skeleton IMPRESSION: Based on bone mineral density, and according to World Health Organization (WHO) criteria, the diagnosis is consistent with normal bone mineral density. All bone density values are in grams per centimeter squared (g/cm2). Statistically, 68% of repeat scans fall within 1 SD (+/- 0.010 g/cm2 for AP spine L1-L4) and 1 SD (+/- 0.012 g/cm2 for femur total) FRAX is a trademark of the [employer]'s [place] for Metabolic Bone Disease, a World Health Organization (WHO) Collaborating Center. Electronically signed by: Ottoniel Nix MD 12/10/2024 02:25 PM EDT
--- OUTSIDE RECORDS SUMMARY | 2024-12-10 15:03 | XMS_ITS ---
Author Organization Bruce Monroe MD Address [address] [place] [phone] Care Team Providers Care Bladder Cleaner Name Role Phone Bruce Monroe Primary Care [...] Status Risk Notes Problem Carpal tunnel syndrome (51032489) Carpal tunnel syndrome (G56.00) Active confirmed Vital Signs Blood pressure systolic 112 mm Hg 12/04/19 25 Blood pressure diastolic 74 mm Hg 025 Height 64 in 12/03/2024 Weight 227 lbs 12/03/2024 BMI 38.96 kg/m2 12/03/2024 weight is up 2 pounds since 08-30-24 Encounters Encounter Location Date Provider Diagnosis Bruce Monroe MD [address] [place] [address] [place] [phone] 12/03/2024 Bruce Monroe Carpal tunnel syndrome G56.00 and Knee pain M25.569 Assessments Encounter Date Diagnosis (ICD Code) Assessment Notes Treatment Notes Treatment Clinical Notes Section Notes 12/03/2024 Carpal tunnel syndrome (ICD-10 - G56.00) order faxed to [facility] dept , pending diagnostic testing 12/03/2024 Knee pain (ICD-10 - M25.569) have her go to walk in at [facility]/ patient was given information regarding [facility] walk-in Plan Of Treatment Treatment Notes Assessment Notes Carpal tunnel syndrome order faxed to [facility] dept , pending diagnostic testing Knee pain have her go to walk in at [facility]/ patient was given information regarding [facility] walk-in Pending Test Test Name Order Date EMG 12/03/2024 Next Appt Details Provider Name:Bruce mcclain, 03/07/2025 03:30:00 PM, [address] [place] [address], [address] [place] [address], [phone], Provider Name:Bruce mcclain, 08/23/2025 07:00:00 AM, [address] [place] [address], [address], [phone], Provider Name:Bruce mcclain, 09/01/2025 03:30:00 PM, [address] [place] [address], [address], [phone], Progress Notes * Vickey DWYEROB:[birth year] (54 yo F)Acc No.[id number]:12/03/2024 Progress Notes Patient:?Gregorio DWYER Provider:?Bruce Monroe MD :1970???Age:54 Y???Sex:Female D ate:12/03/2024 Address:[address] [place] [address], [phone] Subjective: * Chief Complaints: * ???R hand pain tingling and numb x 3 weeks and by the end of the day having trouble walking * HPI: ???Symptom(s):?patient is a 54 yo female hjere for evaluation, rt hand is numb and feels likecould drop things. does some grimacing with her mouth. has some pain in knee and trouble with stairs.due to her knee. * ROS:?General/Constitutional:?Denies?Chills.?Denies?Fatigue.?Denies?Fever.?Denies?Headache.?ENT:?Patient denies?decreased sense of smell, any loss of taste, sore throat.?Denies?Sore throat.?Respiratory:?Denies?Cough.?Denies?Shortness of breath at rest.?Denies?Shortness of breath with exertion.?Gastrointestinal:?Denies?Diarrhea.?Denies?Nausea.?Musculoskeletal:?Patient denies?muscle aches.?Peripheral Vascular:?Patient denies?red and blue toes.? * Medical History:? * Surgical History:? * Hospitalization/Major Diagno stic Procedure:? * Medications:?TakingTopamax 1 00 MG Tablet 1 tablet Orally bid Multivitamins [...] reviewed and reconciled with the patient * Allergies:?N.K.D.A.yes[Aller gies Verified] Objective: * Vitals:?Ht: 64, Wt: 227, BMI :38.96, BP:112/74, Wt-k.97. weight is up 2 pounds since 08-30-24. * Examination: ???General Examination: ?GENERAL APPEARANCE:?alert, well hydrated, in no distress, female.?HEAD:?normocephalic.?SKIN:?good turgor.?HEART:?regular rate and rhythm, no murmurs, rubs, gallops.?LUNGS:?no wheezes, rales, rhonchi, good air movement, clear to auscultation bilaterally.?EXTREMITIES:?with negative tinnel and no tenderness to palpation.? Assessment: * Assessment: 1.?Carpal tunnel syndrome - G56.00 (Primary)???2.?Knee pain - M25.569??? Plan: * Treatment: 2.?Knee pain? Notes: have her go to walk in at [facility]/ patient was given information regarding [facility] walk-in?? * Procedure Codes:? * * Sign off status: Completed true * Provider:?Bruce Monroe MD Date:?0 12/03/2024 Generated for Arsh guillory/Jerilyn/eTransmitting on:?12/10/2024 03:02 PM EDT History and Physical Notes * [...]
--- OUTSIDE RECORDS SUMMARY | 2024-12-10 15:03 | XMS_ITS ---
Author Organization Bruce Monroe MD Address [address] [place] [phone] Care Team Providers Care Central Office Maintainer Name Role Phone Mabel Bruce Primary Care Provider Reason For Referral Reason Vertigo please eval and treat Diagnosis 1 Vertigo of central o rigin (H81.4) Referral Organization Bruce Monroe MD Referring Provider First Name Bruce Referring Provider Last Name Mabel Referring Provider Speciality Internal M edicine Referred Provider [facility] Referred Provider Specialty Physical The rapist General Notes Piper Rivers 12:16:30 PM EST > patient is booking this herself Referral Priority Routine Referral Appointment Date 09/06/2024 REASON FOR VISIT having vertigo off and on Problems Problem Type SNOMED Code ICD Code Onset Dates Problem Status W/U Status Risk Notes Problem Vertigo (329082913) Vertigo (R42) Active confirmed Encounters Encounter Location Date Provider Diagnosis Bruce Monroe MD [address] [place] [address] [address] [place] [phone] 09/06/2024 Bruce Monroe Plan Of Treatment Referrals Referral Date Details 09/06/2024 09/06/2024, Vertigo please eval and treat , P.T. [facility] Next Appt Details Provider Name:Bruce Cobb ier, 03/07/2025 03:30:00 PM, [address] [place] [address], [address], [place], [phone], Provider Name:Bruce Cobb iemyrtle, 08/23/2025 07:00:00 AM, [address] [place] [address], Suite [facility], [place], [phone], Provider Name:Bruce mcclain, 09/01/2025 03:30:00 PM, [address] [place] [address], [address], [place], [phone], Progress Notes * Vickey DWYEROB:[birth year] (54 yo F)Acc No.[id number]:09/06/2024 Patient:?Gregorio Dwyer :1970???Age:54 Y???Sex:Female Address:[address] [place] [address], [address] Subjective: * Chief Complaints: * ???Having vertigo off and on * Medical History:? * Surgical History:? * Hospitalization/Major Diagno stic Procedure:? * Medications:? Objective: Assessment: Plan: * Treatment: * Procedure Codes:? * true * Date:? Generated for Arsh guillory/Jerilyn/eTransmitting on:?12/10/2024 03:03 PM EDT Consultation Request Notes Referral Date Referring Provider Referred Provider Not alba 09/06/2024 Bruce Monroe [facility] Vertigo please eval and treat
--- OUTSIDE RECORDS SUMMARY | 2024-12-10 15:03 | XMS_ITS | Data Portability ---
Author Organization [place] - [facility], Allergy Address [address] [address] Care Team Providers Care Supervisor Evaporator Name Role Phone LUKE QUICK OTHER Assessment Encounter Date Assessment Date Assessment LastModified by Organization Details LastModified Time 10/07/2024 10/07/2024 Physical examination was benign, no evidence of effusion. Audiometric testing was also normal. Reassurance was given. Her dizziness appears to have resolved with physical therapy similar to previous. She does describe some abnormal auditory perception with popping as well as chronic tinnitus for which she uses a noise machine and family at bedtime. Discussed alternative causes of tinnitus including stress as 2023 was very difficult for her. [email or web address] Not available 10/07/2024 15:16:43 Plan of Treatment Reminders Order Date Submit Date Provider Last Modified By Organization Details Last Modified Time Details Appointments None record ed. Lab None record ed. Referral None record ed. Procedures None record ed. Surgeries None record ed. Imaging None record ed. Medication Orders None record ed. Patient TargetsNo targets recorded. Patient InstructionsNo instructions recorded. Reason for Referral None Reported. Results Created Date Observation Date Name Description Value Unit Range Abnormal Flag Note LastModifiedBy Organization Detail LastModifiedTime 10/08/19 25 audio gram No observ ation record ed. BARCODE Not Available 2024 09:31:08 Result Notes None recorded. 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 ; Note: Date Diagnosed : 08/06/2019 1:39 PM (M27.0) Not Available [facility] 4 03:14:58 Otalgia of right ear 4386076155 Active 2017 Otalgia, right ear; Note: Date Diagnosed : 10/03/2017 2:10 PM (H92.01) Not Available [facility] 4 03:14:57 Benign neoplasm of mouth region 367554800 Active 2018 Benign neoplasm of other parts of mouth; Note: Date Diagnosed : 08/06/2019 1:41 PM (D10.39) Not Available [facility] 4 03:14:57 Benign paroxysma l positiona l vertigo 725379039 Active 2018 Benign paroxysma l vertigo, right ear; Note: Date Diagnosed : 11/02/2018 3:59 PM (H81.11) Not Available [facility] 4 03:14:57 Dysfuncti on of eustachia n tube 59654062 Active 2014 Eustachia n tube dysfuncti on; Note: Date Diagnosed : 05/03/2015 11:41 AM (381.81) Not Available [facility] 4 03:14:58 Bilateral disorder of Eustachia n tubes 77629025442 30829 Active 2014 Other specified disorders of Eustachia n tube, bilateral ; Note: Date Diagnosed : 08/07/2015 4:32 PM (H69.83) Not Available [facility] 4 03:14:57 Dizziness and giddiness 137117025 Active 2017 Dizziness and giddiness ; Note: Date Diagnosed : 10/03/2017 1:59 PM (R42) Not Available [facility] 4 03:14:57 Vertigo 760947410 Active 2024 MATT LEAVITT [place], [facility]3]-A [address] [place] [address], [facility] [place], [address] , [place] - [facility] 5 14:21:06 Abnormal auditory perceptio n 73880636 Active 2024 MATT LEAVITT [place], [facility]3]-A [address] [facility],[place] [address], [facility] [place], [address] , [facility] - [facility] [place] 5 14:21:17 Bilateral tinnitus 52272361604 02 Active 2024 SERGE DICK MD [address] [place] [address],[place] [address], [facility] [place], [address] , [facility] - [facility] [place] 15:16:48 Problem Notes None recorded. Procedures Surgical History Date Name Laterality Status Provider Name and Address Organization Details Recorded Time 10/07/2024 Air & Speech Audio with Tymps (99419, 73100 & 03855) completed MATT LEAVITT [place], [facility]3]-A [address] [facility],[place] [address], [place], [address], [facility] [place] 10/07/2024 14:21:25 Imaging Results Imaging Date Name Status [facility]Modified by [facility] Details LastModified Time 10/08/2024 audiogram completed BARCODE Information no t available 10/08/2024 09:31:08 Procedure Notes None recorded. Medical Equipment None Reported. Medications Name Sig Start Date Stop Date Status Note LastModified by Organization Details LastModified Time bupropion HCl SR 150 mg tablet,12 hr sustained -release 11/09 completed Medicati on ID: [id number] D uration Value: 30 Brand Name: bupropio n HCl Send Method: E-Prescr ibed Sub s Allowed: subs OK Speci al Instruct ion: TAKE 1 TABLET BY MOUTH TWICE A DAY Medi cationGe nericNam e: bupropio n HCl Not Available Not Available Not Available vitamin A 2,400 mcg capsule 11/09 completed Medicati on ID: [id number] Br and Name: vitamin A Send Method: E-Prescr ibed Sub s Allowed: subs OK Medic ationGen ericName : vitamin A Not Available Not Available Not Available azithromy harley 250 mg tablet active Medicati on ID: [id number] B rand Name: azithrom ycin Sen d Method: E-Prescr ibed Sub s Allowed: subs OK Medic ationGen ericName : azithrom ycin Not Available Not Available Not Available Claritin 10 mg tablet 11/09 completed Medicati on ID: [id number] Br and Name: Claritin Send Method: E-Prescr ibed Sub s Allowed: subs OK Medic ationGen ericName : Claritin Not Available Not Available Not Available Provigil 100 mg tablet 11/09 completed Medicati on ID: [id number] Br and Name: Provigil Send Method: E-Prescr ibed Sub s Allowed: subs OK Medic ationGen ericName : Provigil Not Available Not Available Not Available modafinil 200 mg tablet TAKE 1 TABLET BY MOUTH EVERY DAY active Not Available Not Available No t Available meclizine 25 mg tablet active Medicati on ID: [id number] B rand Name: meclizin e Send Method: E-Prescr ibed Sub s Allowed: subs OK Medic ationGen ericName : meclizin e Not Available Not Available Not Available azelastin e 137 mcg (0.1 %) nasal spray INHALE 1 SPRAYS EACH NOSTRIL TWICE DAILY active Not Available Not Available No t Available albuterol sulfate HFA 90 mcg/actua tion aerosol inhaler active Medicati on ID: [id number] B rand Name: albutero l sulfate Send Method: E-Prescr ibed Sub s Allowed: subs OK Speci al Instruct ion: TAKE 2 PUFFS BY MOUTH EVERY 4 TO 6 HOURS NEEDED M edicatio nGeneric Name: albutero l sulfate Not Available Not Available Not Available topiramat e 100 mg tablet active Not Available Not Available Not Available fludrocor tisone 0.1 mg tablet 11/09 completed Medicati on ID: [id number] D uration Value: 90 Brand Name: fludroco rtisone Send Method: E-Prescr ibed Sub s Allowed: subs OK Medic ationGen ericName : fludroco rtisone Not Available Not Available Not Available Zuly 0.075 mg/24 hr transderm al patch active Not Available Not Available Not Available Vitals None Recorded Social History None recorded. Functional Status None recorded. Mental Status None recorded. Family History Nothing Reported. Medical History No medical history recorded. Gynecological HistoryNo gynecological history recorded. Obstetrics History GPAL:G 0 P 0 0 0 0 Past Encounters Encounter ID Performer Location Encounter Start Date Encounter Closed Date Diagnosis/Indication Diagnosis SNOMED-CT Code Diagnosis ICD10 Code Diagnosis Note [id number] SERGE DICK MD [facility] [address] [place] [address] 10/07/2024 13:45:49 10/07/2024 15:17:31 Vertigo 149077807 R42 Abnormal a uditory perception 89317457 H93.299 Audiologic al evaluation results: Right ear: {{Normal* Normal through 2 kHz Mild M oderate Mo derately-s evere Vicki re Profoun d}} {{hearing* hearing. sloping to a mild slopi ng to a moderate s loping to moderately severe slo ping to severe slo ping to profound f lat high frequency low frequency mid frequency cookie bite velarde curve}} {{with* se nsorineura l hearing loss with condu ctive hearing loss with mixed hearing loss with}} {{excellen t* good fa ir poor no measurable }} word recognitio n. Left ear: {{Normal* Normal through 2 kHz Mild M oderate Mo derately-s evere Vicki re Profoun d}} {{hearing* hearing. sloping to a mild slopi ng to a moderate s loping to moderately severe slo ping to severe slo ping to profound f lat high frequency low frequency mid frequency cookie bite velarde curve}} {{with* se nsorineura l hearing loss with condu ctive hearing loss with mixed hearing loss with}} {{excellen t* good fa ir poor no measurable }} word recognitio n. Tympanomet ry: Right Ear:{{Type A Type As Type Ad* Type C Type C, shallow & rounded Ty pe B Type B with large volume Cou ld not maintain a hermetic seal}} Left Ear:{{Type A* Type As Type Ad Type C Type C, shallow & rounded Ty pe B Type B with large volume Cou ld not maintain a hermetic seal}} Bilateral tinnitus 33848 43025 102 H93.13 Health Concerns Section Related Observation LastModified by Organization Detai ls LastModified Time None Recorded Concern Status LastModified by Organization Details LastModified Time None Recorded Advance Directives Directive None Recorded Payers Encounter Date Sequence Insurance Name Policy Number Policy Tian Covered Member ID Tian Member ID Guarantor Name 10/07/[address] [place] [address] [id number] Cesar Cadet [id number] Cesar Cadet Notes Date Note Type Note Provider Name and Address Organization Details Recorded Time 10/07/2024 text/html dizzy and abnorm al hearingfelt like pop rocks in earsonset 06/2024 with dizzyreturned to PTfeels 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 audio normal. SERGE DICK MD [address] [place] [address], [address], [facility] - [facility] 10/07/2024 15:17:17 OBGyn Episode No OBEpisode recorded.
--- OUTSIDE RECORDS SUMMARY | 2024-12-10 15:03 | XMS_ITS | Patient Health Record ---
Author Organization Bruce Monroe MD Address [address] [place] [phone] Care Team Providers Care Poiser Balance Name Role Phone Bruce Monroe Primary Care Provider Allergies No Known Allergies Results Component Value Reference Range Notes MAMMOGRAM DIGITAL BILATERAL SCREEN Reviewed date:06/24/2024 11:45:18 AM Interpretation:Negative Performing Lab: Notes/Report: Negative UA CC w/rflx Micro + Cult Reviewed date:08/23/2024 12:36:34 PM Interpretation: Performing Lab:[facility], [address] [place] [address] Notes/Report: [id number] Urine, Clean Catch Color Urine Yellow Appearance Urine Turbid PH 8.5 5.0-9.0 Glucose Urine UA Negative Negative mg/dL Urine Blood Negative Negative Specific Hosmer - Urine 1.020 1.005-1.025 Urine Protein Negative Neg-Trace mg/dL Urine Ketones Negative Negative mg/dL Nitrite Urine Negative Negative Leukocyte Esterase Urine Negative Negative XR DEXA axial skeleton (Not yet reviewed by provider) Interpretation: Performing Lab: Notes/Report: Anand [facility]'s [address] [place], [place] [address] Mammography Report Signed Patient: Cesar Dwyer MR#: [id number] : 1970 Acct:[id number] Age/Sex: 54 / F ADM Date: 12/10/24 Loc: TERRI Attending Dr: Bruce Monroe MD Ordering Physician: Bruce Monroe MD Results: Date of Service: 12/10/24 Follow Up: Procedure(s): XR DEXA axial skeleton Accession Number(s): [id number] cc: Bruce Monroe MD EXAMINATION: DXA BONE DENSITY AXIAL HISTORY: Estrogen deficiency TECHNIQUE: [employer] Dual energy absorptiometry (DEXA) of the lumbar spine, total left hip, and femoral neck was performed. COMPARISON: Comparison is made with the prior examination dated 09/06/2021. FINDINGS: The bone mineral density of the lumbar spine is 1.309 with a T-score of 1.1, and a Z-score of 0.8. This represents a BMD change of 0.9% compared to the prior exam. This is not statistically significant. The bone mineral density of the left total hip is 1.066 with a T-score of 0.5, and a Z-score of 0.4. This represents a BMD change of -0.2% compared to the prior exam. This is not statistically significant. The bone mineral density of the left femoral neck is 1.050 with a T-score of 0.1, and a Z-score of 0.4. This represents a BMD change of 1.3% compared to the prior exam. FRACTURE RISK: The FRAX index suggests a ten year probability of major osteoporotic fracture of 4.8%, and of hip fracture 0.1%. MM/XR DEXA axial skeleton IMPRESSION: Based on bone mineral density, and according to World Health Organization (WHO) criteria, the diagnosis is consistent with normal bone mineral density. All bone density values are in grams per centimeter squared (g/cm2). Statistically, 68% of repeat scans fall within 1 SD (+/- 0.010 g/cm2 for AP spine L1-L4) and 1 SD (+/- 0.012 g/cm2 for femur total) FRAX is a trademark of the [employer] [place] for Metabolic Bone Disease, a World Health Organization (WHO) Collaborating Center. Electronically signed by: Ottoniel Nix MD 12/10/2024 02:25 PM EDT RP Dictated By: Ottoniel Nix MD Signed By: <Electronically signed by Ottoniel Nix MD in OV> 12/10/24 1425 DD/ 1345 TD/TT: 12/10/24 1410 Software Controls Engineer: Anand [facility]'s [address] [place] [address] Mammography Report Signed Patient: Cesar Reyes MR#: [id number] : 1970 Acct:[id number] Age/Sex: 54 / F ADM Date: 12/10/24 Loc: HO.MAMMO Attending Dr: Bruce Monroe MD Ordering Physician: Bruce Monroe MD Results: Date of Service: Follow Up: Procedure(s): XR DEX A axial skeleton Accession Number(s): [id number] cc: Bruce Monroe MD EXAMINATION: DXA BON E DENSITY AXIAL HISTORY: Estrogen deficiency TECHNIQUE: [employer] Dual energy absorptiometry (DEXA) of the lumbar spine, total left hip, and femoral neck was performed. COMPARISON: Comparis on is made with the prior examination dated 09/06/2021. FINDINGS: The bone mineral den sity of the lumbar spine is 1.309 with a T-score of 1.1, and a Z-score of 0.8. This represents a BM D change of 0.9% compared to the prior exam. This is not statistically significant. The bone mineral den sity of the left total hip is 1.066 with a T-score of 0.5, and a Z-score of 0.4. This represents a BM D change of -0.2% compared to the prior exam. This is not statistically significant. The bone mineral den sity of the left femoral neck is 1.050 with a T-score of 0.1, and a Z-score of 0.4. This represents a BM D change of 1.3% compared to the prior exam. FRACTURE RISK: The FRAX index sugge sts a ten year probability of major osteoporotic fracture of 4.8%, an d of hip fracture 0.1%. M M/XR DEXA axial skeleton IMPRESSION: Based on bone minera l density, and according to World Health Organization (WHO) nafisa grant, the diagnosis is consistent with normal bone mineral density. All bone density archana ues are in grams per centimeter squared (g/cm2). Statistically, 68% o f repeat scans fall within 1 SD (+/- 0.010 g/cm2 for AP spine L1-L4) and 1 SD (+/- 0.012 g/cm2 for femur total) FRAX is a trademark of the [employer] [place] for Metabolic Bone Disease, a World Health Organization (WHO) Collaborating Center. Electronically joanna d by: Ottoniel Nix MD 12/10/2024 02:25 PM EDT Dictated By: Ottoniel Nix MD Signed By: <Alexsandra valladares signed by Ottoniel Nix MD in OV> 12/10/24 1425 DD/ 1345 TD/TT: 12/10/24 1410 Software Controls Engineer: Reason For Referral Reason FAMILY HISTORY OF CO MYLENE CANCER Diagnosis 1 Family hx of colon c ancer (Z80.0) Referral Organization Bruce Monroe MD Referring Provider First Name Bruce Referring Provider Last Name Mabel Referring Provider Speciality Internal M edicine Referred Provider Loly Buck Referred Provider Specialty Gastroentero logy General Notes Joanna Alcala 09/13/2024 10:48:05 AM EST > PER [facility], NO APPT YET BUT REFERRAL IN QUEU FOR SCHEDULING, Joanna Alcala 09/24/2024 09:49:40 AM EST > NO APPT SCHEDULED YET Jayant SPENCERVineetJoanna Devine Padmaja 10/08/2024 11:27:33 AM >APPT SCHEDULED FOR 12/14 24 AT 3:45PM Referral Priority Routine Referral Appointment Date 12/14/2024 Reason Vertigo please eval and treat Diagnosis 1 Vertigo of central o rigin (H81.4) Referral Organization Bruce Monroe MD Referring Provider First Name Bruce Referring Provider Last Name Mabel Referring Provider Speciality Internal M edicine Referred Provider C/CORE, P.T. Referred Provider Specialty Physical The rapist General Notes SilvestrePiper 12:16:30 PM EST > patient is booking this herself Referral Priority Routine Referral Appointment Date 09/06/2024 Medications Medication SIG (Take, Route, Fr equency, Duration) Notes Start Date End Date Status Topamax 100 MG 1 tablet Orally bid Active Multivitamins - as directed Orally Active Estradiol 0.075 MG/24HR 1 patch to skin Transdermal twice a week Active Modafinil 200 MG TAKE 1 TABLET BY FLORENCE TH EVERY DAY for 30 11/16/2024 Active Immunizations Vaccine Route Administration Date Status Comme nts Flu Vaccine Unknown 06/23/2018 Administered pt was give n the vaccine at Dr Carrasco's office. Fluarix Quadrivalent Unknown 06/08/[address] Carrasco Fluarix Quadrivalent IM Intramuscular 06/14/2019 Administered TDaP IM Intramuscular 07/30/2019 [facility] Fluarix Quadrivalent IM Intramuscular 06/30/2020 Administered Tetanus Unknown 07/30/2019 Administered Covid Vaccine Unknown 12/08/2020 Administered Ppfizer SARS-COV-2 Pfizer Unknown 01/03/2021 Administered Fluarix Quadrivalent IM Intramuscular 06/21/2021 Administered SARS-COV-2 Pfizer Unknown 07/10/2021 Administered Fluarix Quadrivalent IM Intramuscular 07/05/2022 Administered Shingrix Unknown 10/14/2022 Administered [facility] Shingrix Unknown 03/02/2023 Administered [facility] Fluarix Quadrivalent IM Intramuscular 06/19/2023 Administered SARS-COV-2 Moderna Unknown 07/17/2023 Administered Fluarix Quadrivalent - 150 IM Intramuscular 06/18/2024 Administered Social History Tobacco Use: Social History Observation [...] Never (0 point) Points 2 Interpretation Negative Problems Problem Type SNOMED Code ICD Code Onset Dates Problem Status W/U Status Risk Notes Problem Carpal tunnel syndrome (15372546) Carpal tunnel syndrome (G56.00) Active confirmed Problem 105655759 Seizure disorder (G40.909) Active confirmed Problem Menopause (288197020) Menopause (Z78.0) Active confirmed Problem Vertigo (954225636) Vertigo (R42) Active confirmed Problem 44903460 Obstructive slee p apnea (G47.33) Active confirmed Problem 20428974 Iron deficiency anemia, unspecified iron deficiency anemia type (D50.9) Active confirmed Problem 29817809 Sleep disorder (G47.9) Active confirmed Problem 439029772 BMI 39.0-39.9,ad ult (Z68.39) Active confirmed Problem 036919458 Arthritis of kne e (M17.10) Active confirmed Problem 61262111 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 Problem Mild cognitive disorder (383091547) Mild cognitive disorder (F09) Active confirmed Problem 049689544 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) Active confirmed Problem 198885965 Status post jade sarah banding surgery (Z98.84) Active confirmed Problem 689752775 History of arteriovenous malformation (AVM) (Z87.74) Active confirmed Problem 57271213 Hypersomnolence disorder (G47.10) Active confirmed Problem Vertigo of central origin (78709388) 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 Problem 626608243 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 Vital Signs Blood pressure diastolic 74 mm Hg 12/03/2024 perlita ght is up 2 pounds since 08-30-24 Height 64 in 12/03/2024 weight is up 2 pounds since 08-30-24 Blood pressure systolic 112 mm Hg 12/03/2024 weig ht is up 2 pounds since 08-30-24 Weight 227 lbs 12/03/2024 weight is up 2 pounds since 08-30-24 BMI 38.96 kg/m2 12/03/2024 weight is up 2 pounds since 08-30-24 Encounters Encounter Location Date Provider Diagnosis Bruce Monroe MD [address] [place] [address] Drive [address] [place] [id number] 06/18/2024 Bruce Monroe Encounter for immunization Z23 Bruce Monroe MD [address] [place] [address] [address] [id number] 04/16/2024 Bruce Monroe Arthritis of knee M17.10 [address] MD [address] [place] [id number] 08/30/2024 Bruce Monroe Annual physical exam Z00.00 ; Family hx of colon cancer Z80.0 ; Seizure disorder G40.909 ; Iron deficiency anemia, unspecified iron deficiency anemia type D50.9 and Screening for osteoporosis Z13.820 Bruce Monroe MD [address] [place] [address] Drive [address] [place] [id number] 12/03/2024 Bruce Monroe Carpal tunnel syndrome G56.00 and Knee pain M25.569 Bruce Monroe MD [address] [place] [id number] 09/06/2024 Bruce Monroe MD [address] [place] [address] Drive [address] [place] [id number] 09/23/2024 Bruce Monroe Menopause Z78.0 Assessments Encounter Date Diagnosis (ICD Code) Assessment Notes Treatment Notes Treatment Clinical Notes Section Notes 06/18/2024 Encounter for immunization (ICD-10 - Z23) 04/16/2024 Arthritis of knee (ICD-10 - M17.10) try ibuprofen if knee hurts 08/30/2024 Annual physical exam (ICD-10 - Z00.00) labs reviewed and discussed with patient 08/30/2024 Family hx of colon cancer (ICD-10 - Z80.0) needs appt with gi at [facility]/ REFERRAL FAXED TO [facility] 12/03/2024 Carpal tunnel syndrome (ICD-10 - G56.00) order faxed to [facility] CS dept , pending diagnostic testing 12/03/2024 Knee pain (ICD-10 - M25.569) have her go to walk in at [facility]/ patient was given information regarding [facility] walk-in 08/30/2024 Seizure disorder (ICD-10 - G40.909) followed by neuro, will continue current regiment 09/23/2024 Menopause (ICD-10 - Z78.0) 08/30/2024 Iron deficiency anemia, unspecified iron deficiency anemia type (ICD-10 - D50.9) stable, will continue to monitor 08/30/2024 Screening for osteoporosis (ICD-10 - Z13.820) pending screening testing Plan Of Treatment Pending Test Test Name Order Date Electrocardiogram (EKG) 07/30/2019 MRI BRAIN W&WO CONTRAST 02/07/2022 BONE DENSITY DEXA 08/30/2024 BONE DENSITY DEXA 08/04/2020 BONE DENSITY DEXA 09/23/2024 EMG 12/03/2024 SARS-COV-2 PCR 03/29/2021 XR DEXA axial skeleton 12/10/2024 XR DEXA axial skeleton 08/10/2021 Next Appt Details Provider Name:Bruce mcclain, 03/07/2025 03:30:00 PM, [address] [place] [address], [address], [phone], Provider Name:Bruce mcclain, 08/23/2025 07:00:00 AM, [address] [place] [address], [place] [address], [place], [place], [phone], Provider Name:Bruce mcclain, 09/01/2025 03:30:00 PM, [address] [place] [address], [place] [address], [place], [place], [phone], Insurance Providers Payer Name Payer Address Payer Phone Subscriber Number Group Number Insured Name Patient Relationship to Insured Coverage Start Date Coverage End Date [address] [facility] [place] [phone] [id number] Cesar Dwyer Self - patient is the insured Medical (General) History Medical History History ICD Code Colonoscopy 12/2017 - repeat 5 years Surgical History Surgery Date(Month/Year) Total Abd Hysterectomy and Bilateral Franky pingo-oophorectomy 02/2017
--- OUTSIDE RECORDS SUMMARY | 2024-12-10 15:03 | XMS_ITS ---
Author Organization Bruce Monroe MD Address [address] [place] [phone] Care Team Providers Care Hog Cooler Name Role Phone Bruce Monroe Primary Care Provider REASON FOR VISIT bone density order Problems Problem Type SNOMED Code ICD Code Onset Dates Problem Status W/U Status Risk Notes Problem Menopause (811699211) Menopause (Z78.0) Active confirmed Encounters Encounter Location Date Provider Diagnosis Bruce Monroe MD [address] [place] [phone] 09/23/2024 Bruce Monroe Menopause Z78.0 Assessments Encounter Date Diagnosis (ICD Code) Assessment Notes Treatment Notes Treatment Clinical Notes Section Notes 09/23/2024 Menopause (ICD-10 - Z78.0) Plan Of Treatment Pending Test Test Name Order Date BONE DENSITY DEXA 09/23/2024 Next Appt Details Provider Name:Bruce Cobb ier, 03/07/2025 03:30:00 PM, [address], [address], [place], [phone], Provider Name:Bruce Cobb ier, 08/23/2025 07:00:00 AM, [address], [address], [place], [phone], Provider Name:Bruce Cobb ier, 09/01/2025 03:30:00 PM, [address], [address], [place], [phone], Progress Notes * Gilberto DWYERinDOB:[birth year] (54 yo F)Acc No.[id number]:09/23/2024 Patient:?Eduardo Gregorio Cadet :1970???Age:54 Y???Sex:Female Address:[address] [place] [address], [phone] Subjective: * Chief Complaints: * ???Bone density order * Medical History:? * Surgical History:? * Hospitalization/Major Diagno stic Procedure:? * Medications:? Objective: Assessment: * Assessment: 1.?Menopause - Z78.0? Plan: * Treatment: * Procedure Codes:? * true * Date:? Generated for Arsh guillory/Jerilyn/Deyanirasmitting on:?12/10/2024 03:03 PM EDT
--- OUTSIDE RECORDS SUMMARY | 2024-12-10 15:04 | XMS_ITS | Patient Health Record ---
Author Organization [facility] Address [address] [facility] [address] [place] [address] Care Team Providers Care Electrical Transmission Engineer Name Role Phone DANILO, MARIA T Primary Care Provider Radha Peterson Unavailable [phone] Reason For Referral No Information Medications Medication SIG (Take, Route, Frequency, Duration) Notes Start Date End Date Status Fludrocortisone Acetate 0.1MG 1 ORAL twice daily for -3 [facility] 06/04/2013 Active Percocet 2.5-325 MG 1 tablet as needed Orally every 6 hrs for 3 days 12/08/2014 Active Topamax 75MG 3 ORAL daily for -3 [facility] 06/04/2013 Active Provigil 200MG 1 ORAL daily for -3 [facility] 05/27/2012 Active Problems Problem Type SNOMED Code ICD Code Onset Dates Problem Status W/U Status Risk Notes Problem Chronic lymphocytic thyroiditis (61632030) Chronic lymphocytic thyroiditis (245.2) Active confirmed Major Problem Obesity (590933118) Obesity, unspecified (278.00) Active confirmed Major Problem Anemia (337727002) Unspecified anemia (285.9) Active confirmed Diag Problem Excessive and frequent menstruation (690507536) Excessive or frequent menstruation (626.2) Active confirmed Diag Plan Of Treatment Pending Test Test Name Order Date MAMMOGRAM, SCREENING 01/13/2015 Insurance Providers Payer Name Payer Address Payer Phone Subscriber Number Group Number Insured Name Patient Relationship to Insured Coverage Start Date Coverage End Date [facility] [place] [address] [place] [address] [id number] OLENA MONTOYA Self - patient is the insured Medical (General) History Medical History History ICD Code [id number]: Brain arterioven ous malformation, Start date: 06/06/2014, Active, , Major Unspecified anemia Unspecified anemia Excessive or frequent menstruation Chronic lymphocytic thyroiditis Obesity, unspecified Surgical History Surgery Date(Month/Year) Cholecystectomy Gastric Lap Band x 2 Proton Tx and embolization of Brain AVM Hydrothermal ablation with h ysteroscopy D & C with Dr. Owusu @ [facility] DX: menorrhagia 12/26/14
== END 2024-12-10 13:28 | disposition home or self-care (01) ==
LOC: HO.MAMMO 13:27
PROVIDERS: PCP Internal Medicine; Visit Provider Internal Medicine
DX: Z13.820 Encounter for screening for osteoporosis (principal); Z78.0 Asymptomatic menopausal state
CPT/HCPCS: 77080

== ENCOUNTER → 2024-12-10 14:00 | Outpatient (BNV) | payer OTHER, SELFPAY | PROVIDERS: PCP Internal Medicine; Visit Provider Radiology Diagnostic Radiology | DX: E28.39 Other primary ovarian failure (principal) | CPT/HCPCS: 77080 ==

== ENCOUNTER 2025-02-24 15:54 | Outpatient (AMB) | payer OTHER, SELFPAY ==
--- OUTSIDE RECORDS SUMMARY | 2025-02-24 15:56 | XMS_ITS ---
Author Organization Bruce Monroe MD Address [address] [place] [phone] Care Team Providers Care Clinical Pharmacy Specialist Name Role Phone Bruce Monroe Primary Care [...] Status Risk Notes Problem Carpal tunnel syndrome (17102479) Carpal tunnel syndrome (G56.00) Active confirmed Vital Signs Blood pressure systolic 112 mm Hg 12/04/19 25 Blood pressure diastolic 74 mm Hg 025 Height 64 in 12/03/2024 Weight 227 lbs 12/03/2024 BMI 38.96 kg/m2 12/03/2024 weight is up 2 pounds since 08-30-24 Encounters Encounter Location Date Provider Diagnosis Bruce Monroe MD [address] [place] [address] [place] [phone] 12/03/2024 Bruce Monroe Carpal tunnel syndrome G56.00 and Knee pain M25.569 Assessments Encounter Date Diagnosis (ICD Code) Assessment Notes Treatment Notes Treatment Clinical Notes Section Notes 12/03/2024 Carpal tunnel syndrome (ICD-10 - G56.00) order faxed to [facility] dept , pending diagnostic testing 12/03/2024 Knee pain (ICD-10 - M25.569) have her go to walk in at [facility]/ patient was given information regarding [facility] walk-in Plan Of Treatment Treatment Notes Assessment Notes Carpal tunnel syndrome order faxed to [facility] dept , pending diagnostic testing Knee pain have her go to walk in at [facility]/ patient was given information regarding [facility] walk-in Pending Test Test Name Order Date EMG 12/03/2024 Next Appt Details Provider Name:Bruce mcclain, 03/07/2025 03:30:00 PM, [address] [place] [address], [address] [place] [address], [phone], Provider Name:Bruce mcclain, 08/23/2025 07:00:00 AM, [address] [place] [address], [address], [phone], Provider Name:Bruce mcclain, 09/01/2025 03:30:00 PM, [address] [place] [address], [address], [phone], Progress Notes * Vickey DWYEROB:[birth year] (54 yo F)Acc No.[id number]:12/03/2024 Progress Notes Patient:?Gregorio DWYER Provider:?Bruce Monroe MD :1970???Age:54 Y???Sex:Female D ate:12/03/2024 Address:[address] [place] [address], [phone] Subjective: * Chief Complaints: * ???R hand [...] have her go to walk in at [facility] patient was given information regarding [facility] walk-in?? * Procedure Codes:? * * Sign off status: Completed true * Provider:?Bruce Monroe MD Date:?0 12/03/2024 Generated for Arsh guillory/Jerilyn/eTransmitting on:?02/24/2025 03:56 PM EDT History and Physical Notes * [...]
--- NOTE | 2025-02-24 16:01 | A.OFFVIS_ITS ---
Vital Signs 02/24/25 16:02 Height 5 ft 4 in Weight 224 lb 13.944 oz BMI 38.6 BP 102/70 Blood Pressure Location Lt brachial Position Sitting Pulse 70 Pulse Source Pulse Oximeter Pulse Oximetry (%) 97 Oxygen Delivery Method Room Air Intake Visit Reasons: Obstructive sleep apnea Intake Note: pt is here for follow up and states she is using her cpap. Insurance Verification Specialist Required: No Allergies ENVIOROMENTAL ALLERGIES Allergy (Uncoded 02/24/25 16:39) Unknown Medication List - Last Reconciled 02/24/25 by Claudio Ledbetter MD ascorbic acid (vitamin C) 250 mg PO DAILY cholecalciferol (vitamin D3) 50 mcg PO DAILY estradiol patches transdermal ferrous sulfate (Feosol) 325 mg PO DAILY ipratropium bromide intranasal modafinil 200 mg PO DAILY topiramate 100 mg PO BID Do you need a note to return to daycare/school/sports/work: No HPI HPI Obstructive sleep apnea: Details: OLENA IS 54 YEARS OLD FEMALE WHO IS HERE FOR 6 MONTHS FOLLOW-UP FOR HER SLEEP APNEA AND DAYTIME SOMNOLENCE. SHE USES CPAP VERY REGULARLY AND SLEEPS OKAY AT NIGHT. SHE STILL HAS SOME DAYTIME FATIGUE AND SLEEPINESS WHICH IS HEATED BY MODAFINIL 200 MG DAILY, SHE DOES HAVE MILD INTERMITTENT VERTIGO LIKE SYMPTOMS , WELL MIGRAINOUS HEADACHES CONTROLLED WITH TOPIRAMATE 100 MG B.I.D.. HER MAIN FRUSTRATION IS THAT SHE IS NOT ABLE TO LOSE MUCH WEIGHT EVEN THOUGH SHE IS USING HEALTH FOODS AND CUTTING CUTTING DOWN THE PORTIONS . IN SPITE OF ALL THE SYMPTOMS SHE IS QUITE STABLE. Characteristics of symptom or complaint: AND USES THE TOPIRAMATE PFSH Medical History Arteriovenous malformation Hyperthyroidism Post covid-19 condition, unspecified Somnolence, daytime WHITNEY (obstructive sleep apnea) Obesity Surgical History Hx of hysterectomy Hx of brain surgery Hx of knee surgery Family History Father Medical history unknown Mother Medical history unknown Social History Alcohol intake: current Patient Tobacco Use Status: Former Tobacco user Years Smoked: Quit 1992 Review of Systems Const All systems reviewed & are unremarkable except as noted in HPI and below Denies snoring Eyes Reports no additional complaints ENT Reports no additional complaints Card Denies chest pain, Denies irregular heart rhythm and Denies leg edema Resp Denies cough, Denies snoring and Denies wheezing GI Reports no additional complaints Reports no additional complaints Musc Reports no additional complaints Skin/Breast Reports system reviewed and no additional complaints, except as documented Neuro Reports no additional complaints Psych Reports no additional complaints Aller/Immun Denies wheezing Physical Exam Vital Signs: Last Vital Signs Pulse 70 02/24/25 16:02 BP 102/70 02/24/25 16:02 Pulse Ox 97 02/24/25 16:02 Oxygen Delivery Method Room Air 02/24/25 16:02 BMI result Body Mass Index 38.6 Const General: healthy appearing, comfortable, no acute distress, alert and awake Orientation/consciousness: patient oriented x3 HEENT Head: Yes normal to inspection General nose exam: No nasal polyps present and No nasal discharge present Face and sinus: Yes sinuses nontender Mouth: oropharynx normal Throat: Yes posterior oropharynx normal Eyes General: appearance normal, both eyes and all related structures Neck Neck: Yes normal visual inspection, Yes no lymphadenopathy, Yes trachea midline and Yes no JVD Thyroid: Thyroid normal Chest Chest palpation & inspection: normal inspection of the chest, normal palpation of entire chest wall and no tenderness Resp Effort & Inspection: normal respiratory effort Auscultation: clear to auscultation bilaterally, no rales and no wheezes Percussion: percussion normal Cardio Palpation: normal PMI Rate: regular rate Rhythm: regular rhythm Heart sounds: no gallops and no murmurs Peripheral pulses: Peripheral pulses 2+ throughout GI Palpation (GI): Soft to palpation, nontender, No hepatosplenomegaly present and no masses Auscultation: normal bowel sounds Back/Spine/Pelvis Thoracic/Lumbar Spine: thoracic and lumbar spine normal to inspection Skin General skin exam: no rashes or lesions noted Neuro General: patient oriented x3 and no focal motor deficits Cranial nerves: Yes CN's II-XII intact bilaterally Extrem General: Yes normal to inspection, Yes no clubbing, cyanosis or edema and Yes no calf tenderness Psych Appearance: grossly normal and well kempt Speech and movement: Normal speech and movement present Results Reviewed Results Reviewed: COMPLIANCE REPORT IS REVIEWED SHE HAS USED 29/30 NIGHTS, 97% AVERAGE USE IT PER NIGHT 6 HOURS 55 MINUTES. PRESSURE USED 8 CM. THERE IS ONLY MINIMAL AIR LEAK. RESIDUAL AHI 0.4 Assessment & Plan Assessment & Plan (1) WHITNEY (obstructive sleep apnea): Comment: SHE HAS LONG-STANDING HISTORY OF OBSTRUCTIVE SLEEP APNEA. SHE IS DEPENDENT UPON USING CPAP AT NIGHT. CONTINUES TO USE THE CPAP VERY OPTIMALLY AND DOING WELL. HER NEW CPAP MACHINE IS WORKING WELL AND SHE IS HAPPY WITH THAT. Code(s): G47.33 - Obstructive sleep apnea (adult) (pediatric) Category: Medical Plan: COMMENDED FOR GOOD COMPLIANCE. ADVISED TO KEEP ON USING THE CPAP EVERY. NIGHT REGULARLY (2) Obesity: Comment: SHE HAS MODERATE OBESITY, STABLE . TRYING TO WATCH HER DIET AND START WALKING. Code(s): E66.9 - Obesity, unspecified Category: Medical Plan: CONTINUE WATCHING CALORIES INTAKE, . MUCH POSSIBLE (3) Somnolence, daytime: Comment: IN SPITE OF USING CPAP VERY OPTIMALLY SHE CONTINUES TO HAVE DAYTIME SOMNOLENCE . FOR THIS REASON SHE NEEDS TO TAKE PROVIGIL( MODAFANIL) 200 DAILY. Code(s): R40.0 - Somnolence Category: Medical Plan: OK TO CONTINUE TAKING MODAFINIL 200 MG DAILY Coding Level of Care Code Est Pt Level 3 (60528) Diagnoses WHITNEY (obstructive sleep apnea) G47.33 Obesity E66.9 Somnolence, daytime R40.0
[2025-02-24 16:02] VITALS: BP 102/70; PULSE 70; O2SAT 97; BMI 38.6
== END 2025-02-24 16:33 | disposition home or self-care (01) ==
LOC: HO.HPS 15:54
PROVIDERS: PCP Internal Medicine; Visit Provider Internal Medicine
DX: G47.33 Obstructive sleep apnea (adult) (pediatric) (principal); E66.9 Obesity, unspecified; R40.0 Somnolence
CPT/HCPCS: 99213

== ENCOUNTER → 2025-02-24 15:54 | Outpatient (BNVA) | payer OTHER, SELFPAY | PROVIDERS: PCP Internal Medicine; Visit Provider Internal Medicine ==

== ENCOUNTER 2025-04-27 07:47 | Outpatient (AMB) | payer OTHER, SELFPAY ==
--- OUTSIDE RECORDS SUMMARY | 2025-04-27 07:49 | XMS_ITS | Patient Health Record ---
Author Organization [facility] Address [address] [place] [address] Care Team Providers Care Filling Machine Set Up Mechanic Name Role Phone DANILO, MARIA T Primary Care Provider Radha Peterson Unavailable [phone] Reason For Referral No Information Medications Medication SIG (Take, Route, Frequency, Duration) Notes Start Date End Date Status Fludrocortisone Acetate 0.1MG 1 ORAL twice daily; Duration: -3 Jass-MJ 06/04/2013 Active Percocet 2.5-325 MG 1 tablet as needed Orally every 6 hrs; Duration: 3 days 12/08/2014 Active Topamax 75MG 3 ORAL daily; Durati on: -3 Jass-MJ 06/04/2013 Active Provigil 200MG 1 ORAL daily; Durati on: -3 Jass-MJ 05/27/2012 Active Problems Problem Type SNOMED Code ICD Code Onset Dates Problem Status W/U Status Risk Notes Problem Chronic lymphocytic thyroiditis (11694386) Chronic lymphocytic thyroiditis (245.2) Active confirmed Major Problem Obesity (155204965) Obesity, unspecified (278.00) Active confirmed Major Problem Anemia (863737513) Unspecified anemia (285.9) Active confirmed Diag Problem Excessive and frequent menstruation (268300340) Excessive or frequent menstruation (626.2) Active confirmed Diag Plan Of Treatment Pending Test Test Name Order Date MAMMOGRAM, SCREENING 01/13/2015 Insurance Providers Payer Name Payer Address Payer Phone Subscriber Number Group Number Insured Name Patient Relationship to Insured Coverage Start Date Coverage End Date [facility] [address] [place] [id number] OLENA MONTOYA Self - patient is the insured Medical (General) History Medical History History ICD Code [id number]: Brain arterioven ous malformation, Start date: 06/06/2014, Active, , Major Unspecified anemia Unspecified anemia Excessive or frequent menstruation Chronic lymphocytic thyroiditis Obesity, unspecified Surgical History Surgery Date(Month/Year) Cholecystectomy Gastric Lap Band x 2 Proton Tx and embolization of Brain AVM Hydrothermal ablation with h ysteroscopy D & C with Dr. Owusu @ [facility] DX: menorrhagia 12/26/14
--- OUTSIDE RECORDS SUMMARY | 2025-04-27 07:49 | XMS_ITS | Patient Health Record ---
Author Organization Bruce Monroe MD Address [address] [place] [phone] Care Team Providers Care Skidway Worker Name Role Phone Bruce Monroe Primary Care Provider [phone] Allergies No Known Allergies Results Component Value Reference Range Notes MAMMOGRAM DIGITAL BILATERAL SCREEN Reviewed date:06/24/2024 11:45:18 AM Interpretation:Negative Performing Lab: Notes/Report: Negative UA CC w/rflx Micro + Cult Reviewed date:08/23/2024 12:36:34 PM Interpretation: Performing Lab:[facility], [address] [place] [phone] Notes/Report: [id number] Urine, Clean Catch Color Urine Yellow Appearance Urine Turbid PH 8.5 5.0-9.0 Glucose Urine UA Negative Negative mg/dL Urine Blood Negative Negative Specific Junction - Urine 1.020 1.005-1.025 Urine Protein Negative Neg-Trace mg/dL Urine Ketones Negative Negative mg/dL Nitrite Urine Negative Negative Leukocyte Esterase Urine Negative Negative XR DEXA axial skeleton Reviewed date:12/10/2024 05:02:37 PM Interpretation: Performing Lab: Notes/Report: [facility] [address] [place], [place] [address] Mammography Report Signed Patient: Cesar Dwyer MR#: [id number] : 1970 Acct:[id number] Age/Sex: 54 / F ADM Date: 12/10/24 Loc: TERRI Attending Dr: Bruce Monroe MD Ordering Physician: Bruce Monroe MD Results: Date of Service: 12/10/24 Follow Up: Procedure(s): XR DEXA axial skeleton Accession Number(s): [id number] cc: Bruce Monroe MD EXAMINATION: DXA BONE DENSITY AXIAL HISTORY: Estrogen deficiency TECHNIQUE: Futuris.tk Dual energy absorptiometry (DEXA) of the lumbar [...] is a trademark of the [employer]'s [place] [facility] Metabolic Bone Disease, a World Health Organization (WHO) Collaborating Center. Electronically signed by: Ottoniel Nix MD 12/10/2024 02:25 PM EDT RP Dictated By: Ottoniel Nix MD Signed By: <Electronically signed by Ottoniel Nix MD in OV> 12/10/24 1425 DD/ 1345 TD/TT: 12/10/24 1410 Sprayer Automatic Spray Machine: [facility] [address] [place] [address] Mammography Report Signed Patient: Cesar Reyes MR#: [id number] : 1970 Acct:[id number] Age/Sex: 54 / F ADM Date: 12/10/24 Loc: HO.MAMMO Attending Dr: Bruce Monroe MD Ordering Physician: Bruce Monroe MD Results: Date of Service: Follow Up: Procedure(s): XR DEX A axial skeleton Accession Number(s): [id number] cc: Bruce Monroe MD EXAMINATION: DXA BON E DENSITY AXIAL HISTORY: Estrogen deficiency TECHNIQUE: ShareSDK Dual energy absorptiometry (DEXA) of the lumbar [...] normal bone mineral density. All bone density archaan ues are in grams per centimeter squared (g/cm2). Statistically, 68% o f repeat scans fall within 1 SD (+/- 0.010 g/cm2 for AP spine L1-L4) and 1 SD (+/- 0.012 g/cm2 for femur total) FRAX is a trademark of the [employer]'s [place] [employer] Disease, a World Health Organization (WHO) Collaborating Center. Electronically joanna d by: Ottoniel Nix MD 12/10/2024 02:25 PM EDT RP Dictated By: Ottoniel Nix MD Signed By: <Electron icall signed by Ottoniel Nix MD in OV> 12/10/24 1425 DD/ 1345 TD/TT: 12/10/24 1410 Sprayer Automatic Spray Machine: Reason For Referral Reason FAMILY HISTORY OF CO MYLENE CANCER Diagnosis 1 Family hx of colon c ancer (Z80.0) Referral Organization Bruce Monroe MD Referring Provider First Name Bruce Referring Provider Last Name Mabel Referring Provider Speciality Internal M edicine Referred Provider Loly Buck Referred Provider Specialty Gastroentero logy General Notes Joanna Alcala 09/13/2024 10:48:05 AM EST > PER [facility], NO APPT YET BUT REFERRAL IN QUEU FOR SCHEDULING, Joanna Alcala 09/24/2024 09:49:40 AM EST > NO APPT SCHEDULED YET PER [facility]STR[facility], Joanna Alcala 10/08/2024 11:27:33 AM >APPT SCHEDULED FOR 12/14 25 AT 3:45PM/ PATIENT R/S FOR APRIL 27 8AM Referral Priority Routine Referral Appointment Date 04/27/2025 Reason Vertigo please eval and treat Diagnosis [...] TABLET BY FLORENCE TH EVERY DAY for 04/25/2025 Active Multivitamins - as directed Orally Active Topamax 100 MG 1 tablet Orally bid Active Immunizations Vaccine Route Administration Date Status Comme nts Flu Vaccine Unknown 06/23/2018 Administered pt was give n the vaccine at Dr Carrasco's office. Fluarix Quadrivalent Unknown 06/08/[address] Carrasco Fluarix Quadrivalent IM Intramuscular 06/14/2019 Administered TDaP IM Intramuscular 07/30/2019 Administered pt had the vaccine at [facility] Fluarix Quadrivalent IM Intramuscular 06/30/2020 [...] Status Risk Notes Problem Carpal tunnel syndrome (44522693) Carpal tunnel syndrome (G56.00) Active confirmed Problem 853592227 Seizure disorder (G40.909) Active confirmed Problem Menopause (259172078) Menopause (Z78.0) Active confirmed Problem Vertigo (757086892) Vertigo (R42) Active confirmed Problem 27073500 Obstructive slee p apnea (G47.33) Active confirmed Problem 96300449 Iron deficiency anemia, unspecified iron deficiency anemia type (D50.9) Active confirmed Problem 84733478 Sleep disorder (G47.9) Active confirmed Problem 015223846 BMI 39.0-39.9,ad ult (Z68.39) Active confirmed Problem 952352437 Arthritis of kne e (M17.10) Active confirmed Problem 18194855 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 Problem Mild cognitive disorder (F09) Active confirmed Problem 049156119 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) Active confirmed Problem 620858539 Status post jade sarah banding surgery (Z98.84) Active confirmed Problem 966390505 History of arteriovenous malformation (AVM) (Z87.74) Active confirmed Problem 35809769 Hypersomnolence disorder (G47.10) Active confirmed Problem Vertigo of central origin (99995959) 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 Problem 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 Vital Signs Blood pressure diastolic 80 mm Hg 03/07/2025 perlita ght is down 2 pounds since 12-03-24 Height 64 in 03/07/2025 weight is down 2 pounds since 12-03-24 Blood pressure systolic 122 mm Hg 03/07/2025 weig ht is down 2 pounds since 12-03-24 Weight 225 lbs 03/07/2025 weight is down 2 pounds since 12-03-24 BMI 38.62 kg/m2 03/07/2025 weight is down 2 pounds since 12-03-24 Encounters Encounter Location Date Provider Diagnosis Bruce Monroe MD [address] [place] [id number] 06/18/2024 Bruce Monroe Encounter for immunization Z23 Bruce Monroe MD [address] [place] [id number] 08/30/2024 Bruce Monroe Annual physical exam Z00.00 ; Family hx of colon cancer Z80.0 ; Seizure disorder G40.909 ; Iron deficiency anemia, unspecified iron deficiency anemia type D50.9 and Screening for osteoporosis Z13.820 Bruce Monroe MD [address] [place] [id number] 12/03/2024 Bruce Monroe Carpal tunnel syndrome G56.00 and Knee pain M25.569 Bruce Monroe MD [address] [place] [id number] 03/07/2025 Bruce Monroe Seizure disorder G40.909 and 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 Bruce Monroe MD [address] [place] [id number] 09/06/2024 Bruce Monroe MD [address] [place] [id number] 09/23/2024 Burce Monroe Menopause Z78.0 Bruce Monroe MD [address] [place] [id number] 02/11/2025 Bruce Monroe Assessments Encounter Date Diagnosis (ICD Code) Assessment Notes Treatment Notes Treatment Clinical Notes Section Notes 06/18/2024 Encounter for immunization (ICD-10 - Z23) 08/30/2024 Annual physical exam (ICD-10 - Z00.00) labs reviewed and discussed with patient 08/30/2024 Family hx of colon cancer (ICD-10 - Z80.0) needs appt with gi at [facility]/ REFERRAL FAXED TO [facility] 12/03/2024 Carpal tunnel syndrome (ICD-10 - G56.00) order faxed to [facility] CS dept , pending diagnostic testing 12/03/2024 Knee pain (ICD-10 - M25.569) have her go to walk in at [facility]/ patient was given information regarding [facility] walk-in 03/07/2025 Seizure disorder (ICD-10 - G40.909) not having any seizures 08/30/2024 Seizure disorder (ICD-10 - G40.909) followed by neuro, will continue current regiment 03/07/2025 Narcolepsy and cataplexy (ICD-10 - G47.411) is stable 09/23/2024 Menopause (ICD-10 - Z78.0) 08/30/2024 Iron [...] SARS-COV-2 PCR 03/29/2021 XR DEXA axial skeleton 08/10/2021 Next Appt Details Provider Name:Bruce Cobb ier, 08/23/2025 07:00:00 AM, [address] [place] [address], [address], [place], [place], [phone], Provider Name:Bruce Miya Jordyn ier, 09/01/2025 03:30:00 PM, [address] [facility], [address], [place], [place], [id number], Insurance Providers Payer Name Payer Address Payer Phone Subscriber Number Group Number Insured Name Patient Relationship to Insured Coverage Start Date Coverage End Date [facility] [address] [facility] [place] [phone] [id number] Cesar Dwyer Self - patient is the insured Medical (General) History Medical History History ICD Code Colonoscopy 12/2017 - repeat 5 years Surgical History Surgery Date(Month/Year) Total Abd Hysterectomy and Bilateral Franky pingo-oophorectomy 02/2017
--- OUTSIDE RECORDS SUMMARY | 2025-04-27 07:49 | XMS_ITS | Encounter Summary ---
Author Organization [facility] Address [address] [place] [facility] [address] [place] [phone] Phone Care Team Providers Care Revenue Investigator Name Role Phone Claudio Ledbetter MD Primary Care Provider Encounter Details Date Type Department Care Team (Late st Contact Info) Description 05/09/2020 Ancillary Orders [facility],Outside Imaging [address] [place] [address] System, Provider Not In, [place] [address] Social History Tobacco Use Types Packs/Day Years Used Date Smoking Tobacco: Former Cigarettes 1 8 985 1992 Smokeless Tobacco: Never Alcohol Use Standard Drinks/Week Comments Yes 0 (1 standard drink = 0.6 oz pur e alcohol) Comments No Sex and Gender Information Value Date Recorded Sex Assigned at Not on file Legal Sex Female 5:36 PM EST Gender Identity Not on file Sexual Orientation Not on file 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 us Provider Not In System PhD IMG OUTSIDE IMAGING W /OUT INTERPRETATION Final Result * Mammogram Outside (No Interpretation) (07/11/2018 12:00 AM EDT) Narrative SYSTEMGENERATED, DOCUMENTATION - 05/09/2020 8:20 AM EDT This study is for PACS storage only and not for interpretation. us Provider Not In System PhD IMG OUTSIDE IMAGING W /OUT INTERPRETATION Final Result * Mammogram Outside (No Interpretation) (07/05/2017 12:00 AM EDT) Narrative SYSTEMGENERATED, DOCUMENTATION - 05/09/2020 8:21 AM EDT This study is for PACS storage only and not for interpretation. us Provider Not In System PhD IMG OUTSIDE IMAGING W /OUT INTERPRETATION Final Result * Mammogram Outside (No Interpretation) (06/28/2016 12:00 AM EDT) Narrative SYSTEMGENERATED, DOCUMENTATION - 05/09/2020 8:21 AM EDT This study is for PACS storage only and not for interpretation. us Provider Not In System PhD IMG OUTSIDE IMAGING W /OUT INTERPRETATION Final Result * Mammogram Outside (No Interpretation) (06/26/2015 12:00 AM EDT) Narrative SYSTEMGENERATED, DOCUMENTATION - 05/09/2020 8:22 AM EDT This study is for PACS storage only and not for interpretation. us Provider Not In System PhD IMG OUTSIDE IMAGING W /OUT INTERPRETATION Final Result documented in this encounter Visit Diagnoses Not on filedocumented in this encounter Care Teams Revenue Investigator Relationship Specialty Start Date End Date Claudio Ledbetter MD [address] [place] [address] [address] [place] [address] PCP - General 10/02/17 documented as of this encounter Additional Source Comments The information contained in this document represents components of the legal health record. It is not the complete legal health record.[facility]
--- NOTE | 2025-04-27 08:02 | A.OFFVIS_ITS ---
Vital Signs 04/27/25 08:07 Height 5 ft 4 in Weight 219 lb 8 oz BMI 37.7 BP 120/68 Blood Pressure Location Rt brachial Position Sitting Pulse 76 Pulse Source Pulse Oximeter Pulse Oximetry (%) 98 Oxygen Delivery Method Room Air Intake Visit Reasons: Colonoscopy Screening Intake Note: NEW PATIENT for recall colo screening. Last colo ~ 10 years ago + FMHx. CC; Pt denies any GI sx or concerns at this time. Pt has noticed some occasional intolerance to certain dairy foods but is not overly concerned at this time. Fitter Machinist Required: No Accompanied by: Self / Same As Patient Allergies environmental allergies Allergy (Unknown, Verified 04/27/25 08:11) Unknown HPI HPI Colonoscopy Screening: Details: 54 year old? female with past medical history of hyperthyroidism, WHITNEY, obesity is here today for pre colonoscopy screening.? Patient was sent to us by her PCP.? Last colonoscopy over 10 years ago.? Patient denies any gastrointestinal symptoms in the past or at present.? However patient does report to have postprandial diarrhea occasionally depending on what she eats or drinks. Usually happens after having coffee in the morning. Sometimes after she has apple or other food. Patient's father of colon cancer in his 60s.? Denies history of difficulty with sedation or anesthesia in the past.? History of sleep apnea.? Denies any history of cardiac, renal, pulmonary, or hepatic disease.?? No history of infectious? diseases like hepatitis A, B, C, HIV or tuberculosis.? Patient is not on any anticoagulation PFSH Medical History Arteriovenous malformation Hyperthyroidism Post covid-19 condition, unspecified Somnolence, daytime WHITNEY (obstructive sleep apnea) Obesity Surgical History Hx of hysterectomy Hx of brain surgery Hx of knee surgery Family History Father Medical history unknown Mother Medical history unknown Social History Alcohol intake: current Patient Tobacco Use Status: Former Tobacco user Years Smoked: Quit 1992 Review of Systems Const Denies weight gain and Denies weight loss ENT Reports no additional complaints, Denies dysphagia and Denies odynophagia Card Reports no additional complaints Resp Reports no additional complaints GI Reports abdominal pain (Cramping), Denies belching, Denies melena, Denies bloating, Denies change in bowel habits, Denies dysphagia, Denies excessive flatus, Denies dyspepsia, Denies heartburn, Denies diarrhea, Reports loose stools, Denies nausea, Denies odynophagia and Denies vomiting Reports no additional complaints Musc Reports no additional complaints Neuro Reports no additional complaints Psych Reports no additional complaints Endo Reports no additional complaints Physical Exam Vital Signs: Last Vital Signs Pulse 76 04/27/25 08:07 BP 120/68 04/27/25 08:07 Pulse Ox 98 04/27/25 08:07 Oxygen Delivery Method Room Air 04/27/25 08:07 BMI result Body Mass Index 37.7 Const General: healthy appearing, no acute distress and well developed Nutritional Appearance: well nourished Orientation/consciousness: patient oriented x3 Resp Effort & Inspection: normal respiratory effort, able to speak in complete sentences, no tracheal deviation and symmetric chest movement Auscultation: clear to auscultation bilaterally Cardio Rate: regular rate GI Inspection: Yes normal to inspection and No distended Palpation (GI): Soft to palpation, not firm, nontender and No hepatosplenomegaly present Auscultation: normal bowel sounds General: Yes no CVA tenderness Back/Spine/Pelvis Back: no CVA tenderness Skin General skin exam: elasticity normal, turgor normal and dry skin Neuro General: patient oriented x3 Psych Appearance: grossly normal Mental Status: mental status grossly normal Judgement: Good judgement present (Psych) Assessment & Plan Assessment & Plan (1) Screen for colon cancer: Code(s): Z12.11 - Encounter for screening for malignant neoplasm of colon (2) Postprandial diarrhea: Code(s): K52.9 - Noninfective gastroenteritis and colitis, unspecified Plan Patient denies any cardiac or respiratory symptoms.? Occasional postprandial diarrhea. Patient was encouraged to increase fiber in her diet. However low- fiber diet before colonoscopy. Denies any issues with anesthesia in the past.? History of sleep apnea.? No history infectious diseases in the past or present.? Not on any anticoagulation therapy.? Family history of CRC.? Patient denies melena, hematochezia, unintentional weight loss or ribbon like stools.? Discussed at length the pre-procedure,? prep, diet & medications as well as what to expect prior, during and after the procedure.?? Stressed the importance of good bowel prep.? Recommended the use of Vaseline or Calmoseptine OTC & baby wipes with bowel movements to promote comfort.? ?Patient verbalizes understanding and agrees to plan of care.? She was given the opportunity to ask questions and all questions answered.? We will see her after the procedure.? Orders: Orders TSH reflex Free T4 Today K59.00 - Constipation, unspecified Transglutaminase IgA Today R10.9 - Unspecified abdominal pain Vitamin B12 and Folate Today R19.7 - Diarrhea, unspecified Vitamin D 25-OH (D2 and D3) Today E55.9 - Vitamin D deficiency, unspecified Medications: New bisacodyl (Dulcolax (bisacodyl)) take 4 tabs at noon the day before your colonoscopy 20 mg (4 x 5 mg) PO ONCE 4 tabs 0RF constipation 1 day Z12.11 - Encounter for screening for malignant neoplasm of colon polyethylene glycol 3350 (Miralax) As directed by gastroenterology department at [facility] 238 grams PO ONCE 238 grams 0RF Z12.11 - Encounter for screening for malignant neoplasm of colon Coding Level of Care Code New Pt Level 3 (86786) Diagnoses Screen for colon cancer Z12.11 Postprandial diarrhea K52.9 Time Spent (min) 40 Comment 30 minutes spent with patient and additional 10 minutes spent reviewing her records
[2025-04-27 08:07] VITALS: BP 120/68; PULSE 76; O2SAT 98; BMI 37.7
== END 2025-04-27 09:08 | disposition home or self-care (01) ==
LOC: HO.HGI 07:48
PROVIDERS: PCP Internal Medicine; Visit Provider Nurse Practitioner Family
DX: Z01.818 Encounter for other preprocedural examination (principal); Z12.11 Encounter for screening for malignant neoplasm of colon; K52.9 Noninfective gastroenteritis and colitis, unspecified
CPT/HCPCS: 99203

== ENCOUNTER 2025-06-15 17:00 | Outpatient (RCR) | payer OTHER, SELFPAY | END 2025-07-27 11:21 | disposition home or self-care (01) | LOC: HO.PT 17:00 | PROVIDERS: PCP Internal Medicine; Visit Provider Orthopaedic Surgery | DX: M54.50 Low back pain, unspecified (principal) | CPT/HCPCS: 97110; 97112; 97140; 97162; 97530 ==

== ENCOUNTER 2025-07-19 10:16 | Day surgery (SDC) | payer OTHER, SELFPAY ==
--- OUTSIDE RECORDS SUMMARY | 2024-09-06 06:29 | XMS_ITS ---
Author Organization Bruce Monroe MD Address [address] [place] [phone] Care Team Providers Care High School Librarian Name Role Phone Mabel Bruce Primary Care Provider [phone] Reason For Referral Reason Vertigo please eval and treat Diagnosis 1 Vertigo of central o rigin (H81.4) Referral Organization Bruce Monroe MD Referring Provider First Name Bruce Referring Provider Last Name Mabel Referring Provider Speciality Internal M edicine Referred Provider [facility] Referred Provider Specialty Physical The rapist General Notes Piper Rivers 12:16:30 PM EST > patient is booking this herself Referral Priority Routine Referral Appointment Date 09/06/2024 REASON FOR VISIT having vertigo off and on Problems Problem Type SNOMED Code ICD Code Onset Dates Problem Status W/U Status Risk Notes Problem Vertigo (942392257) Vertigo (R42) Active confirmed Encounters Encounter Location Date Provider Diagnosis Bruce Monroe MD [address] [facility] [address] [place] [phone] 09/06/2024 Bruce Monroe Plan Of Treatment Referrals Referral Date Details 09/06/2024 09/06/2024, Vertigo please eval and treat , P.T. [facility] Next Appt Details Provider Name:Bruce Cobb ier, 08/23/2025 07:00:00 AM, [address] [place] [address], [address], [place], [phone], Provider Name:Bruce Cobb ier, 09/01/2025 03:30:00 PM, [address] [place] [address], [address], [place], [phone], Progress Notes * Vickey DWYEROB:[birth year] (54 yo F)Acc No.[id number]:09/06/2024 Patient: Ally russCesar Jose :1970 A ge:54 Y S ex:Female Address:[address] [place] [address], [address] Subjective: * Chief Complaints: * H aving vertigo off and on * Medical History: * Surgical History: * Hospitalization/Major Diagno stic Procedure: * Medications: Objective: Assessment: Plan: * Treatment: * Procedure Codes: * true * Date: Generated for Arsh guillory/Jerilyn/eTransmitting on: 0 06/21/2025 02:05 PM EDT Consultation Request Notes Referral Date Referring Provider Referred Provider Not es 09/06/2024 Bruce Monroe [facility] Vertigo please eval and treat
--- OUTSIDE RECORDS SUMMARY | 2024-09-23 09:23 | XMS_ITS ---
Author Organization Bruce Monroe MD Address [address] [place] [phone] Care Team Providers Care Lithograph Press Feeder Name Role Phone Bruce Monroe Primary Care Provider [phone] REASON FOR VISIT bone density order Problems Problem Type SNOMED Code ICD Code Onset Dates Problem Status W/U Status Risk Notes Problem Menopause (060706800) Menopause (Z78.0) Active confirmed Encounters Encounter Location Date Provider Diagnosis Bruce Monroe MD [address] [place] [phone] 09/23/2024 Bruce Monroe Menopause Z78.0 Assessments Encounter Date Diagnosis (ICD Code) Assessment Notes Treatment Notes Treatment Clinical Notes Section Notes 09/23/2024 Menopause (ICD-10 - Z78.0) Plan Of Treatment Pending Test Test Name Order Date BONE DENSITY DEXA 09/23/2024 Next Appt Details Provider Name:Bruce Cobb ier, 08/23/2025 07:00:00 AM, [address], [address], [place], [place], [phone], Provider Name:Bruce Cobb ier, 09/01/2025 03:30:00 PM, [address], [address], [place], [phone], Progress Notes * Vickey DWYEROB:[birth year] (54 yo F)Acc No.[id number]:09/23/2024 Patient: Ally Cesar Quiroz :1970 A ge:54 Y S ex:Female Address:[address] [place] [address] [place], [address] Subjective: * Chief Complaints: * B one density order * Medical History: * Surgical History: * Hospitalization/Major Diagno stic Procedure: * Medications: Objective: Assessment: * Assessment: 1. [facility] - Z78.0 Plan: * Treatment: * Procedure Codes: * true * Date: Generated for Arsh guillory/Jerilyn/eTransmitting on: 0 06/21/2025 02:06 PM EDT
--- OUTSIDE RECORDS SUMMARY | 2024-12-03 05:00 | XMS_ITS ---
Author Organization Bruce Monroe MD Address [address] [place] [phone] Care Team Providers Care Framing Machine Tender Name Role Phone Bruce Monroe Primary Care Provider Allergies No Known Allergies REASON FOR VISIT r hand pain tingling and numb x 3 weeks and by the end of the day having trouble walking Medications Medication SIG (Take, Route, Fr equency, Duration) Notes Start Date End Date Status Topamax 100 MG 1 tablet Orally bid Active Multivitamins - as directed Orally Active Estradiol 0.075 MG/24HR 1 patch to skin Transdermal twice a week Active Modafinil 200 MG TAKE 1 TABLET BY FLORENCE TH EVERY DAY for 30 11/16/2024 Active Problems Problem Type SNOMED Code ICD Code Onset Dates Problem Status W/U Status Risk Notes Problem Carpal tunnel syndrome (14101895) Carpal tunnel syndrome (G56.00) Active confirmed Vital Signs Blood pressure systolic 112 mm Hg 12/04/19 25 Blood pressure diastolic 74 mm Hg 025 Height 64 in 12/03/2024 Weight 227 lbs 12/03/2024 BMI 38.96 kg/m2 12/03/2024 weight is up 2 pounds since 08-30-24 Encounters Encounter Location Date Provider Diagnosis Bruce Mornoe MD [address] [place] [address] [place] [phone] 12/03/2024 Bruce Monroe Carpal tunnel syndrome G56.00 and Knee pain M25.569 Assessments Encounter Date Diagnosis (ICD Code) Assessment Notes Treatment Notes Treatment Clinical Notes Section Notes 12/03/2024 Carpal tunnel syndrome (ICD-10 - G56.00) order faxed to [facility] dept , pending diagnostic testing 12/03/2024 Knee pain (ICD-10 - M25.569) have her go to walk in at [facility]/ patient was given information regarding [facility] walk-in Plan Of Treatment Treatment Notes Assessment Notes Carpal tunnel syndrome order faxed to [facility] dept , pending diagnostic testing Knee pain have her go to walk in at [facility]/ patient was given information regarding [facility] walk-in Pending Test Test Name Order Date EMG 12/03/2024 Next Appt Details Provider Name:Bruce mcclain, 08/23/2025 07:00:00 AM, [address] [place] [address], [address] [place] [address], [phone], Provider Name:Bruce mcclain, 09/01/2025 03:30:00 PM, [address] [place] [address], Suite [facility], [place], [place], [phone], Progress Notes * Vickey DWYEROB:[birth year] (54 yo F)Acc No.[id number]:12/03/2024 Progress Notes Patient: Ally SEVILLA Cesar RIVERA Provider: Rod Monroe MD :1970 A ge:54 Y S ex:Female Date:12/03/2024 Address:[address] [place], [place] [phone] Subjective: * Chief Complaints: * R hand pain tingling and numb x 3 weeks and by the end of the day having trouble walking * HPI: S ymptom(s): patient is a 54 yo female hjere for evaluation, rt hand is numb and feels likecould drop things. does some grimacing with her mouth. has some pain in knee and trouble with stairs.due to her knee. * ROS: G eneral/Constitutional: Denies C hills. D enies F atigue. D enies F ever. D enies H eadache. E NT: Patient denies d ecreased sense of smell, any loss of taste, sore throat. D enies S ore throat. [...] akingTopamax 100 MG Tablet 1 tablet Orally bid Multivitamins - Capsule as directed Orally Estradiol 0.075 MG/24HR Patch Twice Weekly 1 patch to skin Transdermal twice a week Modafinil 200 MG Tablet TAKE 1 TABLET BY MOUTH EVERY DAY Medication List reviewed and reconciled with the patientTaking Topamax 100 MG Tablet 1 tablet Orally bid Taking Multivitamins - Capsule as directed Orally Taking Estradiol 0.075 MG/24HR Patch Twice Weekly 1 patch to skin Transdermal twice a week Taking Modafinil 200 MG Tablet TAKE 1 TABLET BY MOUTH EVERY DAY Medication List reviewed and reconciled with the patient * Allergies: N .K.D.A.yes[Allergies Verified] Objective: * Vitals: H t: 64, Wt: 227, BMI:38.96, BP:112/74, Wt-k.97. weight is up 2 pounds since 08-30-24. * Examination: G eneral Examination: GENERAL APPEARANCE: a lert, well hydrated, in no distress, female. HEAD: n ormocephalic. SKIN: g ood turgor. HEART: r egular rate and rhythm, no murmurs, rubs, gallops.? LUNGS: n o wheezes, rales, rhonchi, good air movement, clear to auscultation bilaterally. EXTREMITIES: w ith negative tinnel and no tenderness to palpation. Assessment: * Assessment: 1. C arpal tunnel syndrome - G56.00 (Primary) 2 . K nee pain - M25.569 Plan: * Treatment: 2. K nee pain Notes: have her go to walk in at [facility]/ patient was given information regarding [facility] walk-in ? * Procedure Codes: * * Sign off status: Completed true * Provider: Rod Monroe MD Date: 0 12/03/2024 Generated for Arsh guillory/Jerilyn/Karol on: 0 06/21/2025 02:05 PM EDT History and Physical Notes * HPI (History of Present Illness) Category Sub-Category Detail Notes Category Not es Symptom(s) patient is a 54 yo female hjere for evaluation, rt hand is numb and feels likecould drop things. does some grimacing with her mouth. has some pain in knee and trouble with stairs.due to her knee Examination Category Sub-Category Detail Notes Category Not es General Examination GENERAL APPEARANCE: alert, w ell hydrated, in no distress, female HEAD: normocephalic HEART: regular rate and rhy thm, no murmurs, rubs, gallops LUNGS: no wheezes, rales, r honchi, good air movement, clear to auscultation bilaterally SKIN: good turgor EXTREMITIES: with negative tinnel and no tenderness to palpation
--- OUTSIDE RECORDS SUMMARY | 2025-02-11 11:26 | XMS_ITS ---
Author Organization Bruce Monroe MD Address [address] [place] [phone] Care Team Providers Care Range Examiner Name Role Phone Bruce Monroe Primary Care Provider REASON FOR VISIT FYI EMG Encounters Encounter Location Date Provider Diagnosis Bruce Monroe MD [address] [place] [address] [address] [place] [phone] 02/11/2025 Bruce Monroe Plan Of Treatment Next Appt Details Provider Name:Bruce mcclain, 08/23/2025 07:00:00 AM, [address] [place] [address], [address], [phone], Provider Name:Bruce mcclain, 09/01/2025 03:30:00 PM, [address] [place] [address], [address], [phone], Progress Notes * Vickey DWYEROB:[birth year] (54 yo F)Acc No.[id number]:02/11/2025 Patient: Cesar VILLALOBOS :1970 A ge:54 Y S ex:Female Address:[address] [place] [address], [place] [address] * true * Date: Generated for Arsh guillory/Jerilyn/Deyanirasmitting on: 0 06/21/2025 02:05 PM EDT
--- OUTSIDE RECORDS SUMMARY | 2025-03-07 11:30 | XMS_ITS ---
Author Organization Bruce Monroe MD Address [address] [place] [phone] Care Team Providers Care Professor Of Theater Name Role Phone Bruce Mornoe Primary Care Provider Allergies No Known Allergies REASON FOR VISIT 6 MO F/U Medications Medication SIG (Take, Route, Fr equency, Duration) Notes Start Date End Date Status Estradiol 0.075 MG/24HR 1 patch to skin Transdermal twice a week Active Modafinil 200 MG TAKE 1 TABLET BY EVERY DAY for 30 02/21/2025 Active Multivitamins - as directed Orally Active Topamax 100 MG 1 tablet Orally bid Active Vital Signs Blood pressure systolic 122 mm Hg 03/07/20 25 Blood pressure diastolic 80 mm Hg 025 Height 64 in 03/07/2025 Weight 225 lbs 03/07/2025 BMI 38.62 kg/m2 03/07/2025 weight is down 2 pounds [facility] e 12-03-24 Encounters Encounter Location Date Provider Diagnosis Bruce Monroe MD [address] [place] [address] [address] [place], [place] [phone] 03/07/2025 Bruce Monroe Seizure disorder G40.909 and 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 Assessments Encounter Date Diagnosis (ICD Code) Assessment Notes Treatment Notes Treatment Clinical Notes Section Notes 03/07/2025 Seizure disorder (ICD-10 - G40.909) not having any seizures 03/07/2025 Narcolepsy and cataplexy (ICD-10 - G47.411) is stable Plan Of Treatment Treatment Notes Assessment Notes Seizure disorder not having any seizu res Narcolepsy and cataplexy is stable Next Appt Details Provider Name:Bruce Cobb ier, 08/23/2025 07:00:00 AM, [address] [place] [address], Suite [facility], [place], [place], [phone], Provider Name:Bruce Cobb ier, 09/01/2025 03:30:00 PM, [address] [place] [address], [address], [place], [place], [phone], Progress Notes * NISHANT MARRGilberto COOKinDOB:[birth year] (54 yo F)Acc No.[id number]:03/07/2025 Progress Notes Patient: Cesar VILLALOBOS Provider: Rod Monroe MD :1970 A ge:54 Y S ex:Female Date:03/07/2025 Address:[address] [place], [place] [phone] Subjective: * Chief Complaints: * 6 [place] F/U * HPI: S ymptom(s): patient is a 54 yo female here for 6 month follow up visit/ here for follow up. carpal tunnel had been bothering her. hat a shot and is better. having pain down her leg and appears in upper thigh and below knee/ taking quinine tonic water. * ROS: G eneral/Constitutional: Denies C hills. D enies F atigue. D enies F ever. D enies H eadache. E NT: Denies S ore throat. R espiratory: Denies C ough. D enies S hortness of breath at rest. D enies S hortness of breath with exertion. G astrointestinal: Denies D iarrhea. D enies N ausea. * Medical History: * Surgical History: * [...] Objective: * Vitals: H t: 64, Wt: 225, BMI:38.62, BP:122/80, Wt-k.06. weight is down 2 pounds since 12-03-24. * Examination: G eneral Examination: GENERAL APPEARANCE: a lert, well hydrated, in no distress.? HEAD: n ormocephalic. SKIN: g ood turgor. HEART: n o murmurs, rubs, gallops, regular rate and rhythm.? LUNGS: n o wheezes, rales, rhonchi, good air movement, clear to auscultation bilaterally. Assessment: * Assessment: 1. S eizure disorder - G40.909 (Primary) 2 . 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 N arcolepsy and cataplexy Notes: is stable * Procedure Codes: * * Sign off status: Completed true * Provider: Rod Monroe MD Date: 0 03/07/2025 Generated for Lisseti pastora/Jerilyn/Karol on: 0 06/21/2025 02:06 PM EDT History and Physical Notes * HPI (History of Present Illness) Category Sub-Category Detail Notes Category Not es Symptom(s) patient is a 54 yo female here for 6 month follow up visit/ here for follow up. carpal tunnel had been bothering her. hat a shot and is better. having pain down her leg and appears in upper thigh and below knee/ taking quinine tonic water. Examination Category Sub-Category Detail Notes Category Not es General Examination GENERAL APPEARANCE: alert, w ell hydrated, in no distress HEAD: normocephalic HEART: no murmurs, rubs, ga llops, regular rate and rhythm LUNGS: no wheezes, rales, r honchi, good air movement, clear to auscultation bilaterally SKIN: good turgor
--- OUTSIDE RECORDS SUMMARY | 2025-06-21 14:06 | XMS_ITS | Patient Health Record ---
Author Organization Bruce Monroe MD Address [address] [place] [phone] Care Team Providers Care Professor Of Practice Name Role Phone MabelBruce Primary Care Provider Allergies No Known Allergies Results Component Value Reference Range Notes UA CC w/rflx Micro + Cult Reviewed date:08/23/2024 12:36:34 PM Interpretation: Performing Lab:[facility], [address] [place] [id number] Notes/Report: [id number] Urine, Clean Catch Color Urine Yellow Appearance Urine Turbid PH 8.5 5.0-9.0 Glucose Urine UA Negative Negative mg/dL Urine Blood Negative Negative Specific Fountain - Urine 1.020 1.005-1.025 Urine Protein Negative Neg-Trace mg/dL Urine Ketones Negative Negative mg/dL Nitrite Urine Negative Negative Leukocyte Esterase Urine Negative Negative XR DEXA axial skeleton Reviewed date:12/10/2024 05:02:37 PM Interpretation: Performing Lab: Notes/Report: [facility] [address] [place], [place] [address] Mammography Report Signed Patient: Cesar Dwyer MR#: [id number] : 1970 Acct:[id number] Age/Sex: 54 / F ADM Date: 12/10/24 Loc: MAMMO Attending Dr: Bruce Monroe MD Ordering Physician: Bruce Monroe MD Results: Date of Service: 12/10/24 Follow Up: Procedure(s): XR DEXA axial skeleton Accession Number(s): [id number] cc: Bruce Monroe MD EXAMINATION: DXA BONE DENSITY AXIAL HISTORY: Estrogen deficiency TECHNIQUE: [employer] Systems Dual energy absorptiometry (DEXA) of the lumbar [...] of the [employer] [place] for Metabolic Bone Disease, a World Health Organization (WHO) Collaborating Center. Electronically signed by: Ottoniel Nix MD 12/10/2024 02:25 PM EDT RP Dictated By: Ottoniel Nix MD Signed By: <Electronically signed by Ottoniel Nix MD in OV> 12/10/24 1425 DD/ 1345 TD/TT: 12/10/24 1410 Rubbish Collection Supervisor: [facility] [address] [place] [address] Mammography Report Signed Patient: Cesar Reyes MR#: [id number] : 1970 Acct:[id number] Age/Sex: 54 / F ADM Date: 12/10/24 Loc: HO.MAMMO Attending Dr: Bruce Monroe MD Ordering Physician: Bruce Monroe MD Results: Date of Service: Follow Up: Procedure(s): XR DEX A axial skeleton Accession Number(s): [id number] cc: Bruce Monroe MD EXAMINATION: DXA BON E DENSITY AXIAL HISTORY: Estrogen deficiency TECHNIQUE: Affibody Dual energy absorptiometry (DEXA) of the lumbar [...] is a trademark of the [employer] [place] for Metabolic Bone Disease, a World Health Organization (WHO) Collaborating Center. Electronically joanna d by: Ottoniel Nix MD 12/10/2024 02:25 PM EDT RP Dictated By: Ottoniel Nix MD Signed By: <Alexsandra valladares signed by Ottoniel Nix MD in OV> 12/10/24 1425 DD/ 1345 TD/TT: 12/10/24 1410 Rubbish Collection Supervisor: Reason For Referral Reason FAMILY HISTORY OF CO MYLENE CANCER Diagnosis 1 Family hx of colon c ancer (Z80.0) Referral Organization Bruce Monroe MD Referring Provider First Name Bruce Referring Provider Last Name Mabel Referring Provider Speciality Internal M edicine Referred Provider Loly Buck Referred Provider Specialty Gastroentero logy General Notes Joanna Alcala 09/13/2024 10:48:05 AM EST > PER [facility] GASTRO, NO APPT YET BUT REFERRAL IN QUEU FOR SCHEDULING, Joanna Alcala 09/24/2024 09:49:40 AM EST > NO APPT SCHEDULED YET PER GASTROFredrick Patti A 10/08/2024 11:27:33 AM >APPT SCHEDULED FOR 12/14 25 AT 3:45PM/ PATIENT R/S FOR APRIL 27 8AM, Lizzy Alcalawinifred Giang 04/28/2025 11:40:15 AM >OFFICE NOTE RECD FOR 04/27 VISIT Referral Priority Routine Referral Appointment Date 04/27/2025 Reason Vertigo please eval and treat Diagnosis 1 Vertigo of central o rigin (H81.4) Referral Organization Bruce Monroe MD Referring Provider First Name Bruce Referring Provider Last Name Mabel Referring Provider Speciality Internal M edicine Referred Provider [facility] Referred Provider Specialty Physical The rapist General Notes Piper Rivers 12:16:30 PM EST > patient is booking this herself Referral Priority Routine Referral Appointment Date 09/06/2024 Medications Medication SIG (Take, Route, Fr equency, Duration) Notes Start Date End Date Status Estradiol 0.075 MG/24HR 1 patch to skin Transdermal twice a week Active Multivitamins - as directed Orally Active Modafinil 200 MG TAKE 1 TABLET BY FLORENCE TH EVERY DAY for 05/27/2025 Active Topamax 100 MG 1 tablet Orally bid Active Immunizations Vaccine Route Administration Date Status Comme nts Flu Vaccine Unknown 06/23/2018 Administered pt was give n the vaccine at Dr Carrasco's office. Fluarix Quadrivalent Unknown 06/08/[address] Carrasco Fluarix Quadrivalent IM Intramuscular 06/14/2019 Administered TDaP IM Intramuscular 07/30/2019 Administered pt had the vaccine at [facility] Fluarix Quadrivalent IM Intramuscular [...] Status Risk Notes Problem Carpal tunnel syndrome (47584600) Carpal tunnel syndrome (G56.00) Active confirmed Problem 059203646 Seizure disorder (G40.909) Active confirmed Problem Menopause (551713164) Menopause (Z78.0) Active confirmed Problem Vertigo (865740981) Vertigo (R42) Active confirmed Problem 11617046 Obstructive slee p apnea (G47.33) Active confirmed Problem 28822705 Iron deficiency anemia, unspecified iron deficiency anemia type (D50.9) Active confirmed Problem 73035995 Sleep disorder (G47.9) Active confirmed Problem 671935065 BMI 39.0-39.9,ad ult (Z68.39) Active confirmed Problem 948478766 Arthritis of kne e (M17.10) Active confirmed Problem 73706326 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 Problem Mild cognitive disorder (665364487) Mild cognitive disorder (F09) Active confirmed Problem 135876539 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) Active confirmed Problem 072982775 Status post jade sarah banding surgery (Z98.84) Active confirmed Problem 889706534 History of arteriovenous malformation (AVM) (Z87.74) Active confirmed Problem 69075918 Hypersomnolence disorder (G47.10) Active confirmed Problem Vertigo of central origin (53871702) 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 [...] Location Date Provider Diagnosis Bruce Monroe MD [address] [place] [id number] 08/30/2024 Bruce Monroe Annual physical exam Z00.00 ; Family hx of colon cancer Z80.0 ; Seizure disorder G40.909 ; Iron deficiency anemia, unspecified iron deficiency anemia type D50.9 and Screening for osteoporosis Z13.[address] MD [address] [place] [id number] 12/03/2024 Bruce Monroe Carpal tunnel syndrome G56.00 and Knee pain M25.569 Bruce Monroe MD [address] [place] [address] Drive [address] [place] [id number] 03/07/2025 Bruce Monroe Seizure disorder G40.909 and 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 Bruce Monroe MD [address] [place] [id number] 09/06/2024 Bruce Monroe MD [address] [place] [address] Drive [address] [place] [id number] 09/23/2024 Bruce Monroe Menopause Z78.0 Bruce Monroe MD [address] [place] [address] Drive [address] [place] [address] [id number] 02/11/2025 Bruce Monroe Assessments Encounter Date Diagnosis (ICD Code) Assessment Notes Treatment Notes Treatment Clinical Notes Section Notes 08/30/2024 Annual physical exam (ICD-10 - Z00.00) labs reviewed and discussed with patient 08/30/2024 Family hx of colon cancer (ICD-10 - Z80.0) needs appt with gi at [facility]/ REFERRAL FAXED TO [facility] 12/03/2024 Carpal tunnel syndrome (ICD-10 - G56.00) order faxed to [facility] CS dept , pending diagnostic testing 12/03/2024 Knee pain (ICD-10 - M25.569) have her go to walk in at [facility]/ patient was given information regarding [facility] walk-in [...] Provider Name:Bruce Cobb ier, 08/23/2025 07:00:00 AM, [address] [place] [address], [place] [address], [place], [place], [phone], Provider Name:Bruce Cobb ier, 09/01/2025 03:30:00 PM, [address] [place] [address], [place] [address], [place], [place], [phone], Insurance Providers Payer Name Payer Address Payer Phone Subscriber Number Group Number Insured Name Patient Relationship to Insured Coverage Start Date Coverage End Date [address] [place] [phone] [id number] Cesar Dwyer Self - patient is the insured Medical (General) History Medical History History ICD Code Colonoscopy 12/2017 - repeat 5 years Surgical History Surgery Date(Month/Year) Total Abd Hysterectomy and Bilateral Franky pingo-oophorectomy 02/2017
--- OUTSIDE RECORDS SUMMARY | 2025-06-21 14:06 | XMS_ITS | Patient Health Record ---
Author Organization [facility] Address [address] [place] [address] Care Team Providers Care Alteration Workroom Supervisor Name Role Phone DANILO, MARIA T Primary Care Provider Radha Peterson Unavailable [phone] Reason For Referral No Information Medications Medication [...] Status Risk Notes Problem Chronic lymphocytic thyroiditis (00870771) Chronic lymphocytic thyroiditis (245.2) Active confirmed Major Problem Obesity (137693473) Obesity, unspecified (278.00) Active confirmed Major Problem Anemia (606379882) Unspecified anemia (285.9) Active confirmed Diag Problem Excessive and frequent menstruation (039898182) Excessive or frequent menstruation (626.2) Active confirmed Diag Plan Of Treatment Pending Test Test Name Order Date MAMMOGRAM, SCREENING 01/13/2015 Insurance Providers Payer Name Payer Address Payer Phone Subscriber Number Group Number Insured Name Patient Relationship to Insured Coverage Start Date Coverage End Date [facility] [address] [place] [address] [id number] OLENA MONTOYA Self - patient is the insured Medical (General) History Medical History History ICD Code [id number]: Brain arterioven ous malformation, Start date: 06/06/2014, Active, , Major Unspecified anemia Unspecified anemia Excessive or frequent menstruation Chronic lymphocytic thyroiditis Obesity, unspecified Surgical History Surgery Date(Month/Year) Cholecystectomy Gastric Lap Band x 2 Proton Tx and embolization of Brain AVM Hydrothermal ablation with h ysteroscopy D & C with Dr. Owusu @ [facility] DX: menorrhagia 12/26/14
--- OUTSIDE RECORDS SUMMARY | 2025-06-21 14:07 | XMS_ITS | Clinical Summary ---
Author Organization [employer] [facility] Address [address] [place] [address] Care Team Providers Care Bottom Sprayer Name Role Phone Bruce Monroe MD Primary Care Provider [phone] Social History Tobacco Use Types Packs/Day Years Used Date Smoking Tobacco: Never Assessed Comments Unknown Sex and Gender Information Value Date Recorded Sex Assigned at Not on file Legal Sex Female 9:11 PM EST Gender Identity Not on file Sexual Orientation Not on file Plan of Treatment Upcoming Encounters Date Type Department Care Team (Late st Contact Info) Description 07/02/2025 8:00 AM EDT [facility]ointment [facility] [address] [phone] Health Maintenance Due Date Last Done Comments DTaP,Tdap,and Td Vaccines (1 - Tdap) 1987 Hepatitis B Vaccines (1 of 3 - 19+ 3-dose series) 1987 Cervical Cancer Screening: Pap Smear 1989 Pneumococcal Vaccine: 50+ Years (1 of 1 - PCV) 2018 Zoster Vaccines (1 of 2) 2018 Colorectal Cancer Screening: Colonoscopy 08/31/2022 HIV Screening 08/31/2022 Hepatitis C Screening 08/31/2022 Social Influencers of Health Screening 08/31/2022 Depression Screening 09/29/2024 COVID-19 Vaccine ( - season) 2025 Influenza Vaccine (#1) 2025 Breast Cancer Screening 06/08/2026 06/08/20 24, 05/28/2023, 05/19/2022, Additional history exists RSV Immunization Adult Patients (1 - 1-dose 75+ series) 2043 HIB Vaccines Aged Out No longer eligi ble based on patient's age to complete this topic HPV Vaccines Aged Out No longer eligi ble based on patient's age to complete this topic Hepatitis A Vaccines Aged Out No long er eligible based on patient's age to complete this topic IPV Vaccines Aged Out No longer eligi ble based on patient's age to complete this topic MMR Vaccines Aged Out No longer eligi ble based on patient's age to complete this topic Meningococcal ACWY Vaccine Aged Out N o longer eligible based on patient's age to complete this topic Meningococcal B Vaccine Aged Out No l onger eligible based on patient's age to complete this topic RSV Immunization Patients Under 20 months Aged Out No longer eligible based on patient's age to complete this topic Varicella Vaccines Aged Out No longer eligible based on patient's age to complete this topic Procedures Procedure Name Priority Date/Time Associated Diagnosis Comments [facility] SCREENING DIGITAL Routine 06/08/2024 4:09 PM EDT Encounter for screening mammogram for malignant neoplasm of breast from Last 3 Months or Most Recently Relevant to Health Maintenance Results * [facility] SCREENING DIGITAL (06/08/2024 4:09 PM EDT) Anatomical Region Laterality Modality Mammography 06/08/2024 3:03 PM EDT Narrative 06/08/2024 4:09 PM EDT [facility] Diagnostic Imaging Department [address] [place], [place] [id number] Patient: EDUARDO MARRCESAR COOK /Age/Sex: 1970 - 53 - F Unit#: [id number] Location/Status: SPDIMAM/REG CLI Mnemonic/Ordering Site: [facility] Ordering Physician: QUEENIE OWUSU MD [facility] Screening Digital - 06/08/24 - 1522 Report Status:Signed EXAM: [facility] Screening Digital EXAM DATE AND TIME: 06/08/2024 3:22 PM HISTORY: Screening. Maternal grandmother had breast carcinoma. COMPARISON: 05/27/23, 05/18/22, 05/14/21 TECHNIQUE: Bilateral digital breast tomosynthesis was performed in the CC and MLO projections. Computer aided detection with [employer] 3D 3.1 was employed. TISSUE DENSITY: a. The breasts are almost entirely fatty. FINDINGS: No suspicious masses, grouped microcalcifications, or areas of architectural distortion are seen. The skin and vascularity are unremarkable. IMPRESSION: Stable mammographic appearance of the breasts. No evidence of malignancy is seen. A negative mammogram in the presence of a clinically suspicious palpable abnormality does not preclude the possibility of malignancy or alter the indications for biopsy. BI-RADS: Category 1: Negative RECOMMENDATION(S): 1: Routine screening mammogram BILATERAL in 1 year. [facility] performed at [facility] [address] [place] [address] Dictating Physician: KAYLA MULLINS MD Electronically Signed by: KAYLA MULLINS MD Dic Date/Time: 06/08/24 1608 Sign date/Time: 06/08/24 1609 Procedure Note Kayla Mullins MD - 07/14/2024 [facility] Diagnostic Imaging Department [address] [place] [address] Patient: CESAR DWYER/Age/Sex: 1970 - 53 - F Unit#: [id number] Location/Status: SPDIMAM/REG CLI Mnemonic/Ordering Site: [facility] Ordering Physician: QUEENIE OWUSU MD [facility] Screening Digital - 06/08/24 - 1522 Report Status:Signed EXAM: [facility] Screening Digital EXAM DATE AND TIME: 06/08/2024 3:22 PM HISTORY: Screening. Maternal grandmother had breast carcinoma. COMPARISON: 05/27/23, 05/18/22, 05/14/21 TECHNIQUE: Bilateral digital breast tomosynthesis was performed in the CCand MLO projections. Computer aided detection with [employer]Shelf 3D 3.1was employed. TISSUE DENSITY: a. The breasts are almost entirely fatty. FINDINGS: No suspicious masses, grouped microcalcifications, or areas ofarchitectural distortion are seen. The skin and vascularity are unremarkable. IMPRESSION: Stable mammographic appearance of the breasts. No evidence of malignancyis seen. A negative mammogram in the presence of a clinically suspicious palpable abnormality does not preclude the possibility of malignancy or alter the indications for biopsy. BI-RADS: Category 1: Negative RECOMMENDATION(S): 1: Routine screening mammogram BILATERAL in 1 year. Mammogram performed at [facility] [place] [address] Dictating Physician: KAYLA MULLINS MD Electronically Signed by: KAYLA MULLINS MD Dic Date/Time: 06/08/24 1608 Sign date/Time: 06/08/24 160 Queenie Owusu MD IMG BI PROCEDURES Final Result from Last 3 Months or Most Recently Relevant to Health Maintenance Insurance [facility] Member Subscriber Plan / Payer (Ef fective 2023-Present) Name:CESAR DWYER Relation to Subscriber:Self Name:Cesar Dwyer Payer ID:[id number] (NAIC) Type:Not on file Address: [facility] [address] [place] [address] [address] [place] [address] Care Teams Bottom Sprayer Relationship Specialty Start Date End Date Bruce Monroe MD [address] [place] [address] [address] [place] [address] PCP - General Internal Medicine 06/17/25
[2025-07-15 13:41] VITALS: BMI 37.7
--- NOTE | 2025-07-18 09:08 | HO.ANESPROP2 ---
Documented by User: Irena Barreto NP 07/18/25 09:08 HPI - Anesthesia Eval Consult details Narrative: 55yo M for Colonoscopy PMFSH Active Problems Active Problems: All Active Problems Hyperthyroidism (Acute) Post covid-19 condition, unspecified (Acute) Somnolence, daytime (Acute) WHITNEY (obstructive sleep apnea) (Acute) Obesity (Acute) Past Medical History Medical History (Updated 07/15/25 @ 13:35 by Jyothi Black RN) Arteriovenous malformation Hyperthyroidism Post covid-19 condition, unspecified Somnolence, daytime WHITNEY (obstructive sleep apnea) Obesity Family History Family History Father Medical history unknown Mother Medical history unknown Surgical History Surgical History (Updated 07/15/25 @ 13:36 by Jyothi Black RN) Hx of hysterectomy Hx of brain surgery Hx of knee surgery Social History Social History Are you a primary ostomy care nurse to a significant other at home: No Do you presently have visiting nurse or other home services: No Alcohol intake: current Alcohol intake frequency: holidays/special occasions only Patient Tobacco Use Status: Former Tobacco user Years Smoked: Quit 1992 Second Hand Smoke Exposure: No Meds Allergies Allergy/AdvReac Type Severity Reaction Status Date / Time environmental allergies Allergy Unknown Unknown Verified 04/27/25 08:11 Home Medications ?Medication ?Instructions ?Recorded ?Confirmed ?Last Taken ?Type estradiol 0.075 mg/24 hr 1 patch transdermal 2XW 12/25/20 07/15/25 Unknown History semiweekly transdermal patch ferrous sulfate 325 mg (65 mg 325 mg PO DAILY 06/28/21 07/15/25 Unknown History iron) tablet (Feosol) modafinil 200 mg tablet 200 mg PO DAILY 06/28/21 07/15/25 Unknown History ascorbic acid (vitamin C) 500 mg 250 mg PO DAILY 06/25/22 07/15/25 Unknown History tablet cholecalciferol (vitamin D3) 50 50 mcg PO DAILY 06/25/22 07/15/25 Unknown History mcg (2,000 unit) tablet ipratropium bromide 21 mcg (0.03 1 spray intranasal DAILY 12/24/22 07/15/25 Unknown History %) nasal spray Exam Height,Weight and Vital Signs: Height 5 ft 4 in Weight 99.564 kg Assessment and Plan Assessment Anesthesia Assessment: Chart Reviewed Documented by User: Kleber Herrera MD 07/19/25 10:31 [facility] Past Medical History Medical History (Updated 07/15/25 @ 13:35 by Jyothi Black, HOMER) Arteriovenous malformation Hyperthyroidism Post covid-19 condition, unspecified Somnolence, daytime WHITNEY (obstructive sleep apnea) Obesity Family History Family History Father Medical history unknown Mother Medical history unknown Family history of problems with anesthesia: No Surgical History Surgical History (Updated 07/15/25 @ 13:36 by Jyothi Black RN) Hx of hysterectomy Hx of brain surgery Hx of knee surgery History of Problems with Anesthesia: No Social History Social History Are you a primary ostomy care nurse to a significant other at home: No Do you presently have visiting nurse or other home services: No Alcohol intake: current Alcohol intake frequency: holidays/special occasions only Patient Tobacco Use Status: Former Tobacco user Years Smoked: Quit 1992 Second Hand Smoke Exposure: No Meds Allergies Allergy/AdvReac Type Severity Reaction Status Date / Time environmental allergies Allergy Unknown Unknown Verified 04/27/25 08:11 Home Medications ?Medication ?Instructions ?Recorded ?Confirmed ?Last Taken ?Type estradiol 0.075 mg/24 hr 1 patch transdermal 2XW 12/25/20 07/15/25 Unknown History semiweekly transdermal patch ferrous sulfate 325 mg (65 mg 325 mg PO DAILY 06/28/21 07/15/25 Unknown History iron) tablet (Feosol) modafinil 200 mg tablet 200 mg PO DAILY 06/28/21 07/15/25 Unknown History ascorbic acid (vitamin C) 500 mg 250 mg PO DAILY 06/25/22 07/15/25 Unknown History tablet cholecalciferol (vitamin D3) 50 50 mcg PO DAILY 06/25/22 07/15/25 Unknown History mcg (2,000 unit) tablet ipratropium bromide 21 mcg (0.03 1 spray intranasal DAILY 12/24/22 07/15/25 Unknown History %) nasal spray Exam Narrative Narrative: Has WHITNEY, maybe narcolepsy? Takes Provigil x 8 years w good results. Didn't take it this morning. Airway Mallampati Class: II TM Dist: <=3cm Neck ROM: Full Loose/Missing/Broken Teeth: No Heart: ok Lungs: ok Assessment and Plan Assessment Anesthesia Assessment: Anesthesia Plan Discussed Final Anesthetic Review Family History of Problems with Anesthesia: No History of Problems with Anesthesia: No NPO: Yes ASA Class: III Final Preanesthetic Review: No Changes in Pt Med Stat, Meds/Allgs Chart Reviewed, Consent Obtained/Reviewed and Anes Risks/Benef Reviewed Patient Risk: Intermediate Procedure Risk: Low Anesthetic Plan Anesthetic Plan: MAC: and Agree w/ Assess. and Plan Disposition: Standard PACU
[2025-07-19 10:43] VITALS: BP 99/55; PULSE 65; RESP 16; TEMP 36.7; O2SAT 98
--- NOTE | 2025-07-19 10:52 | P.HPSUR_ITS ---
Pre-Procedural Eval Section A - 24 Hr Update-Section A only Date of Service: 07/19/25 Section B - Complete if H&P > 30 days Chief Complaint: screening Details of Present Illness: father with crc Relevant Family History (Specify if Yes): Yes Present Medications: see Short Stay Collaborative assessment Medical History: Significant History (Arteriovenous malformation Hyperthyroidism Post covid-19 condition, unspecified Somnolence, daytime WHITNEY (obstructive sleep apnea) Obesity) History of Previous Operations: Relevant previous surgery/procedure and date(s) (Hx of hysterectomy Hx of brain surgery Hx of knee surgery) Allergies: Allergies Allergy/AdvReac Type Severity Reaction Status Date / Time environmental allergies Allergy Unknown Unknown Verified 04/27/25 08:11 Review of Systems Sugical H&P ROS: Negative: Constitution, Cardiovascular, Respiratory, Ne urological, Psychiatric, Hem-Onc, Allergic/Immunologic, Gastrointestinal, Genitourinary, Musculoskeletal, Integumentary, Endocrine and Eyes/Ears/Nose/Throat Exam Surgical H&P Exam: Normal: HEENT, Normal: Heart, Normal: Lungs, Normal: Extremities, Normal: Abdomen, Normal: Skin and Normal: Neurological Plan Diagnosis/Plan: Unchanged I have reviewed the history and physical and performed a pertinent physical examination on my patient. No changes have occurred unless specified. Time Spent With Patient Time: Total time managing care of this patient today ____ minutes.
--- NOTE | 2025-07-19 10:57 | PC.NURSE ---
took patients christiana and tre.
--- NOTE | 2025-07-19 12:07 | HO.OPN-COLON ---
Colonoscopy Operative Note Operative Note Date of Service: 07/19/25 Narrative: Operative Information Procedure Description: Colonoscopy Indication: screening, FH of CRC Anesthesia: MAC COLONOSCOPY Instrument: Olympus variable stiffness pediatric scope 190L Colonoscopy Monitoring: Vital signs and clinical assessment, continuous EKG monitoring, Pulse oximetry, Carbon Dioxide monitoring and blood pressure monitoring were done throughout the procedure. Colon withdrawal time was 15 minutes. Procedure: The patient was placed in the left lateral decubitis position and pre-procedure medications were administered. After a digital rectal examination of the ano-rectum, the video colonoscope was inserted into the rectum and advanced through the colon to the cecum/TI. The colonoscope was slowly withdrawn in a retrograde panoramic fashion and the colon mucosa was carefully examined including a retroflexed view of the rectum. Findings and interventions are described below. Procedure Difficulty: easy Findings: Terminal Ileum-normal Cecum:normal Ascending Colon: 4-5 mm sessile polyp removed with cold forceps Transverse Colon -normal Descending Colon:normal Sigmoid Colon:mild to moderate diverticulosis Rectum: Retroflexion with small internal hemorrhoids seen, grade I Anorectum - normal Intervention: cold forceps Colon preparation: [place] Bowel Preparation Scale Right colon; 2 Transverse colon: 2 Left colon; 2 (0 = Unprepared colon segment with mucosa not seen due to solid stool that cannot be cleared. 1 = Portion of mucosa of the colon segment seen, but other areas of the colon segment not well seen due to staining, residual stool and/or opaque liquid. 2 = Minor amount of residual staining, small fragments of stool and/or opaque liquid, but mucosa of colon segment seen well. 3 = Entire mucosa of colon segment seen well with no residual staining, small fragments of stool or opaque liquid) Impression and Post Procedure Diagnosis: diverticulosis colon polyp x1 internal hemorrhoids Plan: High fiber diet leaflet Avoid straining at stool, epsom salts and sitz bath, anusol supps or cream Repeat Colonoscopy in 5 years due to FH of cRC in father or earlier if clinically indicated Above findings were reviewed with the patient and relevant handouts were provided if indicated.
[2025-07-19 12:10] VITALS: BP 102/56; PULSE 55; RESP 16; TEMP 36.1; O2SAT 100
[2025-07-19 12:15] VITALS: BP 109/64; PULSE 53; RESP 16; TEMP 36.1; O2SAT 100
[2025-07-19 12:30] VITALS: BP 117/73; PULSE 53; RESP 16; O2SAT 100
== END 2025-07-19 13:08 | disposition home or self-care (01) ==
PROVIDERS: PCP Internal Medicine; Visit Provider Internal Medicine Gastroenterology
PROC: 0DJD8ZZ Inspection of Lower Intestinal Tract, Via Natural or Artificial Opening Endoscopic (ICD-10-PCS; CPT 45378; principal; 2025-07-19 12:00)
DX: Z12.11 Encounter for screening for malignant neoplasm of colon (principal); Z80.0 Family history of malignant neoplasm of digestive organs; K52.9 Noninfective gastroenteritis and colitis, unspecified; K57.30 Diverticulosis of large intestine without perforation or abscess without bleeding; D12.2 Benign neoplasm of ascending colon; K64.0 First degree hemorrhoids
CPT/HCPCS: 45380; 88305; J2003; J2704

== ENCOUNTER → 2025-07-19 10:16 | Outpatient (BNV) | payer OTHER, SELFPAY | PROVIDERS: PCP Internal Medicine; Visit Provider Internal Medicine Gastroenterology | DX: Z12.11 Encounter for screening for malignant neoplasm of colon (principal); Z80.0 Family history of malignant neoplasm of digestive organs; K63.5 Polyp of colon; K57.30 Diverticulosis of large intestine without perforation or abscess without bleeding; K64.0 First degree hemorrhoids | CPT/HCPCS: 45380 ==

== ENCOUNTER 2025-07-28 14:52 | Outpatient (AMB) | payer OTHER, SELFPAY ==
--- OUTSIDE RECORDS SUMMARY | 2024-04-16 08:45 | XMS_ITS ---
Author Organization Bruce Monroe MD Address [address] [place] [id number] Care Team Providers Care Purchasing Analyst Name Role Phone Brcue Monroe Primary Care Provider [phone] Allergies No Known Allergies REASON FOR VISIT Right left leg from knee down swollen painful x 2 months Medications Medication SIG (Take, Route, Fr equency, Duration) Notes Start Date End Date Status Topamax 100 MG 1 tablet Orally bid Active Multivitamins - as directed Orally Active Estradiol 0.075 MG/24HR 1 patch to skin Transdermal twice a week Active Modafinil 200 MG TAKE 1 TABLET BY EVERY DAY for 30 04/08/2024 Active Problems Problem Type SNOMED Code ICD Code Onset Dates Problem Status W/U Status Risk Notes Problem [id number] Arthritis of knee (M17.10) Active confirmed Vital Signs Blood pressure systolic 122 mm Hg 04/16/20 24 Blood pressure diastolic 70 mm Hg 024 Height 64 in 04/16/2024 Weight 221 lbs 04/16/2024 BMI 37.93 kg/m2 04/16/2024 Encounters Encounter Location Date Provider Diagnosis Bruce Monroe MD [address] [place] [address] [place] [phone] 04/16/2024 Bruce Monroe Arthritis of knee M17.10 Assessments Encounter Date Diagnosis (ICD Code) Assessment Notes Treatment Notes Treatment Clinical Notes Section Notes 04/16/2024 Arthritis of knee (ICD-10 - M17.10) try ibuprofen if knee hurts Plan Of Treatment Treatment Notes Assessment Notes Arthritis of knee try ibuprofen if kne e hurts Next Appt Details Provider Name:Bruce Cobb ier, 08/23/2025 07:00:00 AM, [address] [place] [address], Suite [facility], [place], [place], [phone], Provider Name:Bruce Cobb ier, 09/01/2025 03:30:00 PM, [address] [place] [address], [place] [address], [place], [place], [phone], Progress Notes * Vickey DWYEROB:[birth year] (53 yo F)Acc No.[id number]:04/16/2024 Progress Notes Patient: Ally leblanc Cesar Cadet Provider: Rod Monroe MD :1970 A ge:53 Y S ex:Female Date:04/16/2024 Address:[address] [place], [place] [phone] Subjective: * Chief Complaints: * R ight left leg from knee down swollen painful x 2 months * HPI: S ymptom(s): patient is a 53 yo female here with complaint right knee and lower leg are swollen and painful for the last 2 months. * ROS: G eneral/Constitutional: Denies C hills. D enies F atigue. D enies F ever. D enies H eadache. E NT: Patient denies d ecreased sense of smell , any loss of taste , sore throat. D enies S ore throat. R espiratory: Denies C ough. D enies S hortness of breath at rest. D enies S hortness of breath with exertion. G astrointestinal: Denies D iarrhea. D enies N ausea. M usculoskeletal: Patient denies m uscle aches. P eripheral Vascular: Patient denies r ed and blue toes. * Medical History: * Surgical History: * Hospitalization/Major Diagno stic Procedure: * Medications: T akingTopamax 100 MG Tablet 1 tablet Orally bidMultivitamins - Capsule as directed Orally Estradiol 0.075 MG/24HR Patch Twice Weekly 1 patch to skin Transdermal twice a weekModafinil 200 MG Tablet TAKE 1 TABLET BY MOUTH EVERY DAY Medication List reviewed and reconciled with the patientTaking Topamax 100 MG Tablet 1 tablet Orally bidTaking Multivitamins - Capsule as directed Orally Taking Estradiol 0.075 MG/24HR Patch Twice Weekly 1 patch to skin Transdermal twice a weekTaking Modafinil 200 MG Tablet TAKE 1 TABLET BY MOUTH EVERY DAY Medication List reviewed and reconciled with the patient * Allergies: N .K.D.A.yes[Allergies Verified] Objective: * Vitals: H t: 64, Wt:221, BMI:37.93, BP:122/70. * Examination: G eneral Examination: GENERAL APPEARANCE: alert, well hydrated, in no distress . EXTREMITIES: n ormal measured both of her legs at 10 inches is exactly the same/ both calfs are soft and non tender. Assessment: * Assessment: 1. A rthritis of knee - M17.10 (Primary) Plan: * Treatment: * Procedure Codes: * * Sign off status: Completed true * Provider: Rod Monroe MD Date: 0 04/16/2024 Generated for Arsh guillory/Jerilyn/Ridgeitting on: 1 05:45 PM EDT History and Physical Notes * HPI (History of Present Illness) Category Sub-Category Detail Notes Category Not es Symptom(s) patient is a 53 yo female here with complaint right knee and lower leg are swollen and painful for the last 2 months Examination Category Sub-Category Detail Notes Category Not es General Examination GENERAL APPEARANCE: alert, w ell hydrated, in no distress EXTREMITIES: normal measured both of her legs at 10 inches is exactly the same/ both calfs are soft and non tender
--- OUTSIDE RECORDS SUMMARY | 2024-06-18 11:00 | XMS_ITS ---
Author Organization Bruce Monroe MD Address [address] [place] [phone] Care Team Providers Care Physician Assistant Name Role Phone Bruce Monroe Primary Care Provider [phone] REASON FOR VISIT flu shot Medications Medication SIG (Take, Route, Fr equency, Duration) Notes Start Date End Date Status Multivitamins - as directed Orally Active Estradiol 0.075 MG/24HR 1 patch to skin Transdermal twice a week Active Topamax 100 MG 1 tablet Orally bid Active Modafinil 200 MG TAKE 1 TABLET BY EVERY DAY for 06/14/2024 Active Immunizations Vaccine Route Administration Date Status Comme nts Fluarix Quadrivalent - 150 IM Intramuscular 06/18/2024 Adm inistered Encounters Encounter Location Date Provider Diagnosis Bruce Monroe MD [address] [place] [phone] 06/18/2024 Bruce Monroe Encounter for immunization Z23 Assessments Encounter Date Diagnosis (ICD Code) Assessment Notes Treatment Notes Treatment Clinical Notes Section Notes 06/18/2024 Encounter for immunization (ICD-10 - Z23) Plan Of Treatment Next Appt Details Provider Name:Bruce Cobb ier, 08/23/2025 07:00:00 AM, [address] [place] [address], Suite [facility], [place], [place], [phone], Provider Name:Bruce Cobb ier, 09/01/2025 03:30:00 PM, [address] [facility], [address], [place], [place], [phone], Progress Notes * Gilberto DWYERinDOB:[birth year] (55 yo F)Acc No.[id number]:06/18/2024 Progress Note Patient: Cesar VILLALOBOS Provider: Rod Monroe MD :1970 A ge:53 Y S ex:Female Date:06/18/2024 Address:[address] [place], [place] [phone] Subjective: * Chief Complaints: * 1 . Flu shot. * Medical History: * Medications: T aking Topamax 100 MG Tablet 1 tablet Orally bid , Taking Multivitamins - Capsule as directed Orally , Taking Estradiol 0.075 MG/24HR Patch Twice Weekly 1 patch to skin Transdermal twice a week , Taking Modafinil 200 MG Tablet TAKE 1 TABLET BY MOUTH EVERY DAY Objective: * Vitals: Assessment: * Assessment: 1. E ncounter for immunization - Z23 (Primary) Plan: * Treatment: * Immunizations: Fluarix Quadrivalent - 150 : 0.5 mL (Dose No:1) (Route: Intramuscular) given by Dionne Taylor , Office Staff on Left Deltoid * Procedure Codes: 9 0686 FLU VAC NO PRSV 4 SARA 3 YRS+, [address] IMMUNIZATION ADMIN * * The named appointment provid er may or may not be the originator of this progress note, and it is not deemed complete until electronically signed by the appointment provider. Sign off status: Pending * Provider: Rod Monroe MD Date: 0 06/18/2024 Generated for Arsh guillory/Jerilyn/Deyanirasmitting on: 1 05:45 PM EDT
--- OUTSIDE RECORDS SUMMARY | 2024-08-23 03:45 | XMS_ITS ---
Author Organization Bruce Monroe MD Address [address] [place] [phone] Care Team Providers Care Aquatic Biologist Name Role Phone Bruce Monroe Primary Care Provider [phone] Results Component Value Reference Range Notes Complete Blood Count Auto Di ff Reviewed date:08/23/2024 12:37:13 PM Interpretation: Performing Lab:[facility], [address] [place] [phone] Notes/Report: White Blood Count 4.9 4.8-10.8 X10*3/uL Red Blood Count 3.93 4.20-5.50 X10*6/uL Hemoglobin 11.9 12.0-16.0 g/dl Hematocrit 36.1 37.0-47.0 % Mean Corpuscular Volume 91.9 80.0-98.0 fL Mean Corpuscular Hemoglobin 30.3 27.0-33.0 pg Mean Corpuscular HGB Conc 33.0 31.0-35.0 g/dl Red Cell Distribution Width 13.1 11.0-16.0 % Platelet Count 186 160-400 X10*3/uL Mean Platelet Volume 10.3 9.4-12.3 fL Neutrophils Percent Auto 62.9 45-73 % Imm Gran Pct Auto 0.2 0.0-0.4 % Lymphocytes Percent Auto 26.4 20-40 % Monocytes Percent Auto 7.7 2-11 % Eosinophils Percent Auto 1.6 0-4 % Basophils Percent Auto 1.2 0-2 % NRBC Pct Auto 0.0 0.0-0.2 /100WBC Neutrophils Absolute Auto 3.1 2.0-8.3 x10*3/u L Imm Gran Abs Auto 0.01 0.00-0.03 X10*3/uL Lymphocytes Absolute Auto 1.3 1.2-4.9 X10*3/u L Monocytes Absolute Auto 0.4 0.1-1.2 X10*3/uL Eosinophils Absolute Auto 0.1 0.0-0.4 X10*3/u L Basophils Absolute Auto 0.1 0.0-0.2 X10*3/uL NRBC Abs Auto 0.000 0.0-0.012 X10*3/uL Comprehensive [place]. Panel Fa st Reviewed date:08/23/2024 12:36:48 PM Interpretation: Performing Lab:[facility], [address] [place] [phone] Notes/Report: Sodium 138 135-145 mmol/L Potassium 3.9 3.3-5.1 mmol/L Chloride 104 96-108 mmol/L Carbon Dioxide 26 22-29 mmol/L Anion Gap 12 12-20 Blood Urea Nitrogen 13 9-16 mg/dL Creatinine 0.72 0.5-1.4 mg/dL Estimated Glomerular Filt Rate > 60 Chronic Kidney Disease: Estimated GFR < 60 mL/min/1.73m2 Severe Kidney Disease: Estimated GFR < 15 mL/min/1.73m2 Glucose Fasting 98 60-99 mg/dL Calcium 9.5 8.4-10.2 mg/dL Bilirubin Total 0.4 0.0-1.0 mg/dL Aspartate Amino Transferase 15 5-31 U/L Alanine Aminotransferase 12 0-31 U/L Total Protein 6.8 6.5-8.0 g/dL Albumin Level 4.2 3.5-5.0 g/dL Alkaline Phosphatase 64 39-117 U/L IRON PROFILE Reviewed date:08/23/2024 12:36:56 PM Interpretation: Performing Lab:[facility], [address] [place] [phone] Notes/Report: Iron 126 30-160 mcg/dL Total Iron Binding Capacity 272 228-428 mcg/d L Percent Iron Saturation 46 15-50 % Unsaturated Iron Binding 146 Lipid Panel Reviewed date:08/23/2024 12:34:00 PM Interpretation: Performing Lab:[facility], [address] [place] [phone] Notes/Report: Triglycerides 230 <150 mg/dL Desirable Triglyceride: less than 150 mg/dL Borderline High Triglyceride 150-199 mg/dL High Triglyceride: 200-499 mg/dL Very High Triglyceride: greater than or equal to 5OO mg/dL Cholesterol 200 <200 mg/dL Desirable Cholesterol: less than 200 mg/dL Borderline High Cholesterol: 200-239 mg/dL High Cholesterol: greater than 239 mg/dL LDL Cholesterol Calculated 99 <100 mg/dL Desirable LDL: less than 100 mg/dL Near Optimal/Above Optimal LDL: 110-129 mg/dL Borderline High LDL: 130-159 mg/dL High LDL: 160-189 mg/dL Very High LDL: greater than or equal to 190 mg/dL HDL Cholesterol 55 >40 mg/dL Desirable HDL: greater than 40 mg/dL Note: This HDL assay may give artificially low results in patients with liver disease. REASON FOR VISIT FASTING LABS Medications Medication SIG (Take, Route, Fr equency, Duration) Notes Start Date End Date Status Topamax 100 MG 1 tablet Orally bid Active Multivitamins - as directed Orally Active Estradiol 0.075 MG/24HR 1 patch to skin Transdermal twice a week Active Modafinil 200 MG TAKE 1 TABLET BY EVERY DAY for 08/14/2024 Active Encounters Encounter Location Date Provider Diagnosis Bruce Monroe MD [address] [place] [address] Drive [address] [place], [place] [phone] 08/23/2024 Bruce Monroe Blood tests for routine general physical examination Z00.00 and Iron deficiency anemia, unspecified iron deficiency anemia type D50.9 Assessments Encounter Date Diagnosis (ICD Code) Assessment Notes Treatment Notes Treatment Clinical Notes Section Notes 08/23/2024 Blood tests for routine general physical examination (ICD-10 - Z00.00) 08/23/2024 Iron deficiency anemia, unspecified iron deficiency anemia type (ICD-10 - D50.9) Plan Of Treatment Next Appt Details Provider Name:Bruce Cobb ier, 08/23/2025 07:00:00 AM, [address] [facility], [address], [place], [place], [phone], Provider Name:Bruce Cobb ier, 09/01/2025 03:30:00 PM, [address] [facility], [address], [place], [place], [phone], Progress Notes * Vickey DWYEROB:[birth year] (55 yo F)Acc No.[id number]:08/23/2024 Progress Note Patient: Ally SEVILLA Cesar RIVERA Provider: Rod Monroe MD :1970 A ge:54 Y S ex:Female Date:08/23/2024 Address:[address] [place], [place] [phone] Subjective: * Chief Complaints: * 1 . FASTING LABS. * Medical History: * Medications: T aking Topamax 100 MG Tablet 1 tablet Orally bid , Taking Multivitamins - Capsule as directed Orally , Taking Estradiol 0.075 MG/24HR Patch Twice Weekly 1 patch to skin Transdermal twice a week , Taking Modafinil 200 MG Tablet TAKE 1 TABLET BY MOUTH EVERY DAY Objective: * Vitals: Assessment: * Assessment: 1. B lood tests for routine general physical examination - Z00.00 (Primary) 2 .?Iron deficiency anemia, unspecified iron deficiency anemia type - D50.9 Plan: * Treatment: 2. I richie deficiency anemia, unspecified iron deficiency anemia type L AB: UA ClnCatch+Micro w/rflx Cult (Order Cancelled) L AB: Complete Blood Count Auto Diff (Collection Date & Time - 08/23/2024 07:49 AM) L AB: Comprehensive [place]. Panel Fast (Collection Date & Time - 08/23/2024 07:49 AM) L AB: IRON PROFILE (Collection Date & Time - 08/23/2024 07:49 AM) L AB: Lipid Panel (Collection Date & Time - 08/23/2024 07:49 AM) * * The named appointment provid er may or may not be the originator of this progress note, and it is not deemed complete until electronically signed by the appointment provider. Sign off status: Pending * Provider: Rod Monroe MD Date: 1 10/23/2023 Generated for Arsh guillory/Jerilyn/Ridgeitting on: 05:45 PM EDT
--- OUTSIDE RECORDS SUMMARY | 2024-08-30 11:30 | XMS_ITS ---
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 Name Role Phone Bruce Monroe Primary Care Provider Allergies No Known Allergies Reason For Referral Reason FAMILY HISTORY OF CO MYLENE CANCER Diagnosis 1 Family hx of colon c ancer (Z80.0) Referral Organization Bruce Monroe MD Referring Provider First Name Bruce Referring Provider Last Name Mabel Referring Provider Speciality Internal M edicine Referred Provider Loly Buck Referred Provider Specialty Gastroentero logy General Notes Joanna Alcala 09/13/2024 10:48:05 AM EST > PER C [facility], NO APPT YET BUT REFERRAL IN QUEU FOR SCHEDULING, Joanna Alcala 09/24/2024 09:49:40 AM EST > NO APPT SCHEDULED YET PER GASTROFredrick Patti A 10/08/2024 11:27:33 AM >APPT SCHEDULED FOR 12/14 25 AT 3:45PM/ PATIENT R/S FOR APRIL 27 8AM, Joanna Alcala 04/28/2025 11:40:15 AM >OFFICE NOTE RECD FOR 04/27 VISIT Referral Priority Routine Referral Appointment Date 04/27/2025 REASON FOR VISIT ANNUAL EXAM, needs a note waas out of work today due to Vertigo Medications Medication SIG (Take, Route, Fr equency, Duration) Notes Start Date End Date Status Modafinil 200 MG TAKE 1 TABLET BY FLORENCE TH EVERY DAY for 08/14/2024 Active Estradiol 0.075 MG/24HR 1 patch to skin Transdermal twice a week Active Multivitamins - as directed Orally Active Topamax 100 MG 1 tablet Orally bid Active Social History Tobacco Use: Social History Observation Description Date Details (start date - stop date) Former Smoker NA - NA Tobacco Use/Smoking Question Answer Notes Patient is a former smoker How long has it been since y ou last smoked? > 10 years Additional Findings: Tobacco Non-User Fo rmer smoker, currently using no form of tobacco Alcohol Screen Question Answer Notes Did you have a drink contain ing alcohol in the past year? Yes How often did you have a dri nk containing alcohol in the past year? 2 to 4 times a month (2 points) How many drinks did you have on a typical day when you were drinking in the past year? 1 or 2 drinks (0 point) How often did you have 6 or more drinks on one occasion in the past year? Never (0 point) Points 2 Interpretation Negative Vital Signs Blood pressure systolic 102 mm Hg 08/30/20 24 Blood pressure diastolic 70 mm Hg 024 Height 64 in 08/30/2024 Weight 225 lbs 08/30/2024 BMI 38.62 kg/m2 08/30/2024 weight is up 4 pounds since 04-16-24 Encounters Encounter Location Date Provider Diagnosis Bruce Monroe MD [address] [place] [address] [place] [phone] 08/30/2024 Bruce Monroe Annual physical exam Z00.00 ; Family hx of colon cancer Z80.0 ; Seizure disorder G40.909 ; Iron deficiency anemia, unspecified iron deficiency anemia type D50.9 and Screening for osteoporosis Z13.820 Assessments Encounter Date Diagnosis (ICD Code) Assessment Notes Treatment Notes Treatment Clinical Notes Section Notes 08/30/2024 Annual physical exam (ICD-10 - Z00.00) labs reviewed and discussed with patient 08/30/2024 Family hx of colon cancer (ICD-10 - Z80.0) needs appt with gi at [facility]/ REFERRAL FAXED TO [facility] 08/30/2024 Seizure disorder (ICD-10 - G40.909) followed by neuro, will continue current regiment 08/30/2024 Iron deficiency anemia, unspecified iron deficiency anemia type (ICD-10 - D50.9) stable, will continue to monitor 08/30/2024 Screening for osteoporosis (ICD-10 - Z13.820) pending screening testing Plan Of Treatment Treatment Notes Assessment Notes Annual physical exam labs reviewed and d iscussed with patient Family hx of colon cancer needs appt wit h gi at [facility]/ REFERRAL FAXED TO [facility] Seizure disorder followed by neuro, w ill continue current regiment Iron deficiency anemia, unsp ecified iron deficiency anemia type stable, will continue to monitor Screening for osteoporosis pending hortenciae tequila testing Pending Test Test Name Order Date BONE DENSITY DEXA 08/30/2024 Referrals Referral Date Details 08/30/2024 08/30/2024, FAMILY H ISTORY OF COLON CANCER, Loly Buck Next Appt Details Follow Up: 6 Months, Reason: Provider Name:Bruce mcclain, 08/23/2025 07:00:00 AM, [address] [place] [address], [address], [phone], Provider Name:Bruce mcclain, 09/01/2025 03:30:00 PM, [address] [place] [address], Suite [facility], [place], [place], [phone], Progress Notes * Vickey DWYEROB:[birth year] (54 yo F)Acc No.[id number]:08/30/2024 Progress Notes Patient: Ally leblanc Cesar Cadet Provider: Rod Monroe MD :1970 A ge:54 Y S ex:Female Date:08/30/2024 Address:[address] [place] [address], [id number] Subjective: * Chief Complaints: * A NNUAL EXAMneeds a note waas out of work today due to Vertigo * HPI: D epression Screening: PHQ-9 L ittle interest or pleasure in doing things N ot at all, F eeling down, depressed, or hopeless N ot at all, T rouble falling or staying asleep, or sleeping too much N ot at all, F eeling tired or having little energy N ot at all, P oor appetite or overeating N ot at all, F eeling bad about yourself or that you are a failure, or have let yourself or your family down N ot at all, T rouble concentrating on things, such as reading the newspaper or watching television N ot at all, M oving or speaking so slowly that other people could have noticed; or the opposite, being so fidgety or restless that you have been moving around a lot more than usual N ot at all, T houghts that you would be better off or of hurting yourself in some way N ot at all, T otal Score 0 . I nterpretation and Intervention D epression Screening Findings N egative, F ollow-Up for Depression : review of PHQ-9 found negative result, no follow-up needed. C ommunication Needs: Communication Needs D oes the patient have a hearing impairment N o, D oes the patient have a vision impairment? Y es, I f yes, what is the vision impairment? G lasses, D oes the patient have a cognition impairment? N o. F all Risk: History H ave you had any falls with injury in the past year? N o, H ave you had two or more falls in the past year? N o. S DEUCE Questions: SDOH Questions I n the past year have you been worried about losing housing? N o, I n the past year have you or any family members you live with been unable to get any of the following when it was really needed? Check all that apply: N one. S ymptom(s): patient is a 54 yo female here for annual visit with review of recent labs and follow up of chronic issues. * ROS: G eneral/Constitutional: Patient denies f atigue, headache. C hange in appetite?denies. C hills d enies. F ever d enies. O phthalmologic: Blurred vision d enies. D ischarge d enies. P ain d enies. E NT: Patient denies d ecreased sense of smell, any loss of taste, sore throat. D ecreased hearing d enies. S ore throat d enies. S wollen glands?denies. E ndocrine: Cold intolerance d enies. E xcessive thirst d enies. H eat intolerance d enies. W eight loss d enies. R espiratory: Cough d enies. S hortness of breath at rest d enies. S hortness of breath with exertion d enies. W heezing d enies. C ardiovascular: Chest pain at rest d enies. C hest pain with exertion?denies. I rregular heartbeat d enies. S hortness of breath d enies. ? G astrointestinal: Abdominal pain d enies. C hange in bowel habits d enies. D iarrhea d enies. N ausea d enies. R ectal bleeding d enies. V omiting d enies . G enitourinary: Blood in urine d enies. D ifficulty urinating d enies. F requent urination d enies. U rinary incontinence D enies. M usculoskeletal: Patient denies m uscle aches. P ainful joints d enies. W eakness d enies. P eripheral Vascular: Patient denies r ed and blue toes. S kin: Dry skin d enies. I tching d enies. D enies?Mole(s), changes in moles, new moles or any lesions of concern. D enies P hotosensitivity. R jairo d enies. N eurologic: Dizziness d enies. F ainting d enies. H eadache?denies. * Medical History: * Surgical History: * Hospitalization/Major Diagno stic Procedure: * Family History: F ather: 65 yrs, diagnosed with Cancer. M other: alive 84 yrs. Father prostae brain liver cancer Mother- Healthy Father and alcohol abuse paternal grandmother mental health issues Father substance abuse, No pertinent family medical history. * Social History: T obacco Use: T obacco Use/Smoking P atient is a f ormer smoker, H ow long has it been since you last smoked? > 10 years, A dditional Findings: Tobacco Non-User F ormer smoker, currently using no form of tobacco. D rugs/Alcohol: A lcohol Screen D id you have a drink containing alcohol in the past year? Y es, H ow often did you have a drink containing alcohol in the past year? 2 to 4 times a month (2 points), H ow many drinks did you have on a typical day when you were drinking in the past year? 1 or 2 drinks (0 point), H ow often did you have 6 or more drinks on one occasion in the past year? N ever (0 point), P oints 2 , I nterpretation N egative. M iscellaneous: C affeine: yes, frequency:, 1-2 cups per day. no Children. Community involvements: yes. no Exercise, walks 6,000 steps a day gardening. Home smoke detector use: yes. Housing: owning. Living with: spouse. Occupation: weeks/months/years, works full-time. Pets: none. Travel outside of the [place]: yes, [place]. * Medications: T akingTopamax 100 MG Tablet [...] Verified] Objective: * Vitals: H t: 64, Wt:225, BMI:38.62, BP:102/70 weight is up 4 pounds since 04-16-24. * P ast Orders: L ab:Complete Blood Count Auto Diff (Order Date - 08/23/2024) (Collection Date - 08/23/2024) Value Reference Range White Blood Count 4.9 4.8-10.8 - X10*3/uL Red Blood Count 3.93 L 4.20-5.50 - X10*6/uL Hemoglobin 11.9 L 12.0-16.0 - g/dl Hematocrit 36.1 L 37.0-47.0 - % Mean Corpuscular Volume 91.9 80.0-98.0 - fL Mean Corpuscular Hemoglobin 30.3 27.0-33.0 - pg Mean Corpuscular HGB Conc 33.0 31.0-35.0 - g/ dl Red Cell Distribution Width 13.1 11.0-16.0 - % Platelet Count 186 160-400 - X10*3/uL Mean Platelet Volume 10.3 9.4-12.3 - fL Neutrophils Percent Auto 62.9 45-73 - % Imm Gran Pct Auto 0.2 0.0-0.4 - % Lymphocytes Percent Auto 26.4 20-40 - % Monocytes Percent Auto 7.7 2-11 - % Eosinophils Percent Auto 1.6 0-4 - % Basophils Percent Auto 1.2 0-2 - % NRBC Pct Auto 0.0 0.0-0.2 - /100WBC Neutrophils Absolute Auto 3.1 2.0-8.3 - x10* 3/uL Imm Gran Abs Auto 0.01 0.00-0.03 - X10*3/uL Lymphocytes Absolute Auto 1.3 1.2-4.9 - X10* 3/uL Monocytes Absolute Auto 0.4 0.1-1.2 - X10*3/ uL Eosinophils Absolute Auto 0.1 0.0-0.4 - X10* 3/uL Basophils Absolute Auto 0.1 0.0-0.2 - X10*3/ uL NRBC Abs Auto 0.000 0.0-0.012 - X10*3/uL L ab:Comprehensive [place]. Panel Fast (Order Date - 08/23/2024) (Collection Date - 08/23/2024) Value Reference Range Sodium 138 135-145 - mmol/L Bilirubin Total 0.4 0.0-1.0 - mg/dL Aspartate Amino Transferase 15 5-31 - U/L Alanine Aminotransferase 12 0-31 - U/L Total Protein 6.8 6.5-8.0 - g/dL Albumin Level 4.2 3.5-5.0 - g/dL Alkaline Phosphatase 64 39-117 - U/L Potassium 3.9 3.3-5.1 - mmol/L Chloride 104 96-108 - mmol/L Carbon Dioxide 26 22-29 - mmol/L Anion Gap 12 12-20 - Blood Urea Nitrogen 13 9-16 - mg/dL Creatinine 0.72 0.5-1.4 - mg/dL Estimated Glomerular Filt Rate > 60 - Glucose Fasting 98 60-99 - mg/dL Calcium 9.5 8.4-10.2 - mg/dL L ab:IRON PROFILE (Order Date - 08/23/2024) (Collection Date - 08/23/2024) Value Reference Range Iron 126 30-160 - mcg/dL Total Iron Binding Capacity 272 228-428 - mc g/dL Percent Iron Saturation 46 15-50 - % Unsaturated Iron Binding 146 - ug/dL L ab:Lipid Panel (Order Date - 08/23/2024) (Collection Date - 08/23/2024) Value Reference Range Triglycerides 230 H <150 - mg/dL Cholesterol 200 H <200 - mg/dL LDL Cholesterol Calculated 99 <100 - mg/dL HDL Cholesterol 55 >40 - mg/dL L ab:UA CC w/rflx Micro + Cult (Order Date - 08/23/2024) (Collection Date - 08/23/2024) Value Reference Range Color Urine Yellow - Appearance Urine Turbid - PH 8.5 5.0-9.0 - Glucose Urine UA Negative Negative - mg/dL Urine Blood Negative Negative - Specific [place] - Urine 1.020 1.005-1.025 - Urine Protein Negative Neg-Trace - mg/dL Urine Ketones Negative Negative - mg/dL Nitrite Urine Negative Negative - Leukocyte Esterase Urine Negative Negative - * Examination: G eneral Examination: GENERAL APPEARANCE: w ell developed, well nourished, in no acute distress. HEAD: n ormocephalic, atraumatic. EYES: p upils equal, round, reactive to light and accommodation, sclera non-icteric. EARS: n ormal. ORAL CAVITY: m ucosa moist. THROAT: c lear. NECK/THYROID: n hilario supple, full range of motion, no cervical lymphadenopathy, no bruits. SKIN: w arm and dry, no suspicious lesions. HEART: r egular rate and rhythm, S1, S2 normal, no murmurs.? LUNGS: c lear to auscultation bilaterally. BREASTS: d one by lens generator. ABDOMEN: s oft, nontender, nondistended, bowel sounds present, normal, no organomegaly , no masses palpable. RECTAL EXAM: d one by lens generator. FEMALE GENITOURINARY: d one by lens generator. EXTREMITIES: n o clubbing, cyanosis, or edema. NEUROLOGIC: n onfocal, motor strength normal upper and lower extremities, sensory exam intact. Assessment: * Assessment: 1. A nnual physical exam - Z00.00 (Primary) 2 . F amily hx of colon cancer - Z80.0 3 . S eizure disorder - G40.909 4 . I richie deficiency anemia, unspecified iron deficiency anemia type - D50.9 5 . S creening for osteoporosis - Z13.820 Plan: * Treatment: 2. F amily hx of colon cancer Notes: needs appt with gi at [facility]/ REFERRAL FAXED TO [facility] ? Referral To:[facility] Reason:FAMILY HISTORY OF COLON CANCER 3. S eizure disorder Notes: followed by neuro, will continue current regiment 4. I richie deficiency anemia, unspecified iron deficiency anemia type Notes: stable, will continue to monitor 5. S creening for osteoporosis I maging: BONE DENSITY DEXA Notes: pending screening testing * Procedure Codes: * Follow Up: 6 Months * * Sign off status: Completed true * Provider: Rod Monroe MD Date: 10/31/2023 Generated for Arsh guillory/Jerilyn/eTransmitting on: 05:44 PM EDT History and Physical Notes * HPI (History of Present Illness) Category Sub-Category Detail Notes Category Not es Symptom(s) patient is a 54 yo female here for annual visit with review of recent labs and follow up of chronic issues. Depression Screening PHQ-9 Little inte rest or pleasure in doing things: Not at all Feeling down, depressed, or hopeless: No t at all Trouble falling or staying asleep, or sl eeping too much: Not at all Feeling tired or having little energy: N ot at all Poor appetite or overeating: Not at all Feeling bad about yourself o r that you are a failure, or have let yourself or your family down: Not at all Trouble concentrating on thi ngs, such as reading the newspaper or watching television: Not at all Moving or speaking so slowly that other people could have noticed; or the opposite, being so fidgety or restless that you have been moving around a lot more than usual: Not at all Thoughts that you would be b roman off or of hurting yourself in some way: Not at all Total Score: 0 Interpretation and Intervention Depression Curly mandel Findings: Negative Follow-Up for Depression: : review of PH Q-9 found negative result, no follow-up needed SDOH Questions SDOH Questions In the past year have you been worried about losing housing?: No In the past year have you or any family members you live with been unable to get any of the following when it was really needed? Check all that apply:: None Fall Risk History Have you had any falls with injury i n the past year?: No Have you had two or more falls in the st year?: No Communication Needs Communication Needs Does the patient have a hearing impairment: No Does the patient have a vision impairmen t?: Yes If yes, what is the vision impairment?: Glasses Does the patient have a cognition impair ment?: No Examination Category Sub-Category Detail Notes Category Not es General Examination GENERAL APPEARANCE: well dev eloped, well nourished, in no acute distress HEAD: normocephalic, atrau matic EYES: pupils equal, round, reactive to light and accommodation, sclera non-icteric EARS: normal THROAT: clear NECK/THYROID: neck supple, full ra nge of motion, no cervical lymphadenopathy, no bruits HEART: regular rate and rhy thm, S1, S2 normal, no murmurs LUNGS: clear to auscultatio n bilaterally ABDOMEN: soft, nontender, non distended, bowel sounds present, normal, no organomegaly , no masses palpable NEUROLOGIC: nonfocal, motor stre ngth normal upper and lower extremities, sensory exam intact SKIN: warm and dry, no joão picious lesions EXTREMITIES: no clubbing, cyanosi s, or edema BREASTS: done by lens generator RECTAL EXAM: done by lens generator FEMALE GENITOURINARY: done by lens generator ORAL CAVITY: mucosa moist Consultation Request Notes Referral Date Referring Provider Referred Provider Not alba 08/30/2024 Bruce Monroe Tuyyab [facility] STORY OF COLON CANCER
--- OUTSIDE RECORDS SUMMARY | 2024-09-06 06:29 | XMS_ITS ---
Author Organization Bruce oMnroe MD Address [address] [place] [phone] Care Team Providers Care Communications Field Technician Name Role Phone Mabel Bruce Primary Care Provider [phone] Reason For Referral Reason Vertigo please eval and treat Diagnosis 1 Vertigo of central o rigin (H81.4) Referral Organization Bruce Monroe MD Referring Provider First Name Bruce Referring Provider Last Name Mabel Referring Provider Speciality Internal M edicine Referred Provider [facility] Referred Provider Specialty Physical The rapist General Notes Piper Rivers 12:16:30 PM EST > patient is booking this herself Referral Priority Routine Referral Appointment Date 09/06/2024 REASON FOR VISIT having vertigo off and on Problems Problem Type SNOMED Code ICD Code Onset Dates Problem Status W/U Status Risk Notes Problem Vertigo (196461720) Vertigo (R42) Active confirmed Encounters Encounter Location Date Provider Diagnosis Bruce Monroe MD [address] [facility] [address] [place] [phone] 09/06/2024 Bruce Monroe Plan Of Treatment Referrals Referral Date Details 09/06/2024 09/06/2024, Vertigo please eval and treat , P.T[facility] Next Appt Details Provider Name:Bruce Cobb ier, 08/23/2025 07:00:00 AM, [address] [place] [address], [address], [place], [phone], Provider Name:Bruce Cobb iemyrtle, 09/01/2025 03:30:00 PM, [address] [place] [address], [address], [place], [phone], Progress Notes * Vickey DWYEROB:[birth year] (54 yo F)Acc No.[id number]:09/06/2024 Patient: Ally russCesar Jose :1970 A ge:54 Y S ex:Female Address:[address] [place] [address], [address] Subjective: * Chief Complaints: * H aving vertigo off and on * Medical History: * Surgical History: * Hospitalization/Major Diagno stic Procedure: * Medications: Objective: Assessment: Plan: * Treatment: * Procedure Codes: * true * Date: Generated for Arsh guillory/Jerilyn/eTransmitting on: 05:45 PM EDT Consultation Request Notes Referral Date Referring Provider Referred Provider Not es 09/06/2024 Bruce Monroe [facility] Vertigo please eval and treat
--- OUTSIDE RECORDS SUMMARY | 2024-09-23 09:23 | XMS_ITS ---
Author Organization Bruce Monroe MD Address [address] [place] [phone] Care Team Providers Care Stroboscope Operator Name Role Phone Bruce Monroe Primary Care Provider REASON FOR VISIT bone density order Problems Problem Type SNOMED Code ICD Code Onset Dates Problem Status W/U Status Risk Notes Problem Menopause (248182504) Menopause (Z78.0) Active confirmed Encounters Encounter Location Date Provider Diagnosis Bruce Monroe MD [address] [place] [phone] 09/23/2024 Bruce Monroe Menopause Z78.0 Assessments Encounter Date Diagnosis (ICD Code) Assessment Notes Treatment Notes Treatment Clinical Notes Section Notes 09/23/2024 Menopause (ICD-10 - Z78.0) Plan Of Treatment Pending Test Test Name Order Date BONE DENSITY DEXA 09/23/2024 Next Appt Details Provider Name:Bruce Cobb ier, 08/23/2025 07:00:00 AM, [address], [address], [place], [place], [phone], Provider Name:Bruce Cobb ier, 09/01/2025 03:30:00 PM, [address], [address], [place], [phone], Progress Notes * Vickey DWYEROB:[birth year] (54 yo F)Acc No.[id number]:09/23/2024 Patient: Ally Cesar Quiroz :1970 A ge:54 Y S ex:Female Address:[address] [place] [address] [place], [address] Subjective: * Chief Complaints: * B one density order * Medical History: * Surgical History: * Hospitalization/Major Diagno stic Procedure: * Medications: Objective: Assessment: * Assessment: [facility]. [facility] - Z78.[facility] Plan: * Treatment: * Procedure Codes: * true * Date: Generated for Arsh guillory/Jerilyn/eTransmitting on: 05:45 PM EDT
--- OUTSIDE RECORDS SUMMARY | 2024-12-03 05:00 | XMS_ITS ---
Author Organization Bruce Mnoroe MD Address [address] [place] [phone] Care Team Providers Care Account Services Coordinator Name Role Phone Bruce Monroe Primary Care [...] Status Risk Notes Problem Carpal tunnel syndrome (14722329) Carpal tunnel syndrome (G56.00) Active confirmed Vital Signs Blood pressure systolic 112 mm Hg 12/04/19 25 Blood pressure diastolic 74 mm Hg 025 Height 64 in 12/03/2024 Weight 227 lbs 12/03/2024 BMI 38.96 kg/m2 12/03/2024 weight is up 2 pounds since 08-30-24 Encounters Encounter Location Date Provider Diagnosis Bruce Monroe MD [address] [place] [address] [place] [phone] 12/03/2024 Bruce Monroe Carpal tunnel syndrome G56.00 and Knee pain M25.569 Assessments Encounter Date Diagnosis (ICD Code) Assessment Notes Treatment Notes Treatment Clinical Notes Section Notes 12/03/2024 Carpal tunnel syndrome (ICD-10 - G56.00) order faxed to [facility] dept , pending diagnostic testing 12/03/2024 Knee pain (ICD-10 - M25.569) have her go to walk in at [facility]/ patient was given information regarding [facility] walk-in Plan Of Treatment Treatment Notes Assessment Notes Carpal tunnel syndrome order faxed to [facility] dept , pending diagnostic testing Knee pain have her go to walk in at [facility]/ patient was given information regarding [facility] walk-in Pending Test Test Name Order Date EMG 12/03/2024 Next Appt Details Provider Name:Bruce mcclain, 08/23/2025 07:00:00 AM, [address] [place] [address], [address] [place] [address], [phone], Provider Name:Bruce mcclain, 09/01/2025 03:30:00 PM, [address] [place] [address], Suite [facility], [place], [place], [phone], Progress Notes * Vickey DWYEROB:[birth year] (54 yo F)Acc No.[id number]:12/03/2024 Progress Notes Patient: Ally SEVILLA Cesar RIVERA Provider: Rod Monroe MD :1970 A ge:54 Y S ex:Female Date:12/03/2024 Address:[address] [place], [place] [phone] Subjective: * Chief Complaints: * R hand [...] 0 12/03/2024 Generated for Arsh guillory/Jerilyn/Karol on: 05:46 PM EDT History and Physical Notes * [...]
--- OUTSIDE RECORDS SUMMARY | 2025-02-11 11:26 | XMS_ITS ---
Author Organization Bruce Monroe MD Address [address] [place] [phone] Care Team Providers Care Director Airport Operations Name Role Phone Bruce Monroe Primary Care Provider [phone] REASON FOR VISIT FYI EMG Encounters Encounter Location Date Provider Diagnosis Bruce Monroe MD [address] [place] [address] [place] [phone] 02/11/2025 Bruce Monroe Plan Of Treatment Next Appt Details Provider Name:Bruce mcclain, 08/23/2025 07:00:00 AM, [address] [place] [address], [address], [phone], Provider Name:Bruce mcclain, 09/01/2025 03:30:00 PM, [address] [place] [address], [address], [phone], Progress Notes * Vickey DWYEROB:[birth year] (54 yo F)Acc No.[id number]:02/11/2025 Patient: Cesar VILLALOBOS :1970 A ge:54 Y S ex:Female Address:[address] [place] [address], [place] [address] * true * Date: Generated for Arsh guillory/Jerilyn/eTkwamesmitting on: 05:46 PM EDT
--- OUTSIDE RECORDS SUMMARY | 2025-03-07 11:30 | XMS_ITS ---
Author Organization Bruce Monroe MD Address [address] [place] [phone] Care Team Providers Care Chip Separator Name Role Phone Bruce Monroe Primary Care Provider [phone] Allergies No Known Allergies REASON FOR VISIT [...] kg/m2 03/07/2025 weight is down 2 pounds [facility] e 12-03-24 Encounters Encounter Location Date Provider Diagnosis Bruce Monroe MD [address] [place] [address] [address] [place], [place] [phone] 03/07/2025 Bruce Monroe Seizure disorder G40.909 and [...] Provider Name:Bruce Cobb ier, 08/23/2025 07:00:00 AM, [address] [place] [address], Suite [facility], [place], [place], [phone], Provider Name:Bruce Cobb ier, 09/01/2025 03:30:00 PM, [address] [place] [address], [address], [place], [place], [phone], Progress Notes * NISHANT MARRGilberto COOKinDOB:[birth year] (54 yo F)Acc No.[id number]:03/07/2025 Progress Notes Patient: Cesar VILLALOBOS Provider: Rod Monroe MD :1970 A ge:54 Y S ex:Female Date:03/07/2025 Address:[address] [place], [place] [phone] Subjective: * Chief Complaints: * 6 [place] [...] MD Date: 0 03/07/2025 Generated for Lisseti pastora/Jerilyn/eTdaria on: 05:46 PM EDT History and Physical [...]
--- OUTSIDE RECORDS SUMMARY | 2025-07-08 10:30 | XMS_ITS ---
Author Organization Bruce Monroe MD Address [address] [place] [phone] Care Team Providers Care Limb Driver Name Role Phone Bruce Monroe Primary Care Provider [phone] REASON FOR VISIT Flu vac Immunizations Vaccine Route Administration Date Status Comme nts Fluarix Quadrivalent - 150 IM Intramuscular 07/08/2025 Adm inistered Encounters Encounter Location Date Provider Diagnosis Bruce Monroe MD [address] [facility] [address] [place] [id number] 07/08/2025 Bruce Monroe Encounter for administration of vaccine Z23 Assessments Encounter Date Diagnosis (ICD Code) Assessment Notes Treatment Notes Treatment Clinical Notes Section Notes 07/08/2025 Encounter for administration of vaccine (ICD-10 - Z23) Plan Of Treatment Next Appt Details Provider Name:Bruce mcclain, 08/23/2025 07:00:00 AM, [address] [facility], [address], [place], [place], [phone], Provider Name:Bruce Cobb ier, 09/01/2025 03:30:00 PM, [address], [address], [place], [phone], Progress Notes * Gilberto MONTOYAinDOB:[birth year] (55 yo F)Acc No.[id number]:07/08/2025 Progress Note Patient: Cesar VILLALOBOS Provider: Rod Monroe MD :1970 A ge:55 Y S ex:Female Date:07/08/2025 Address:[address] [place] [address] Gerson piña [id number] Subjective: * Chief Complaints: * 1 . Flu vac. * Medical History: Objective: * Vitals: Assessment: * Assessment: 1. E ncounter for administration of vaccine - Z23 (Primary) Plan: * Treatment: * Immunizations: Fluarix Quadrivalent - 150 : 0.5 mL (Dose No:1) (Route: Intramuscular) given by Dionne Taylor , Office Staff on Left Deltoid * Procedure Codes: 9 0656 FLU VACCINE NO PRESERV 3 & >, [address] IMMUNIZATION ADMIN * * The named appointment provid er may or may not be the originator of this progress note, and it is not deemed complete until electronically signed by the appointment provider. Sign off status: Pending * Provider: Rod Monroe MD Date: Generated for Arsh guillory/Jerilyn/Deyanirasmitting on: 05:45 PM EDT
--- NOTE | 2025-07-28 14:54 | MHC.OFFVIS ---
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 Topiramate one time was either decreased or stopped and she had another episode and she did not want to have that again. She is presenting with excessive daytime sleepiness and hypersomnia. These conditions are managed with Provigil, prescribed by Dr. Monroe. Adjustments in timing have resulted in improvement of symptoms. The patient also reported a past seizure episode in 2013, attributed to non-compliance with her medication regimen during a stomach illness. Due to this incident, she maintains strict adherence to her Topamax prescription without modification unless directed. The inclusion of a structured exercise regimen contributes positively to her condition. [facility] Medical History (Updated 07/28/25 @ 14:59 by Irma Monroy MD) Arteriovenous malformation Hyperthyroidism Post covid-19 condition, unspecified Somnolence, daytime WHITNEY (obstructive sleep apnea) Obesity Surgical History (Updated 07/15/25 @ 13:36 by Jyothi Black RN) Hx of hysterectomy Hx of brain surgery Hx of knee surgery Family History Father Medical history unknown Mother Medical history unknown Social History Are you a primary child care team lead to a significant other at home: No Do you presently have visiting nurse or other home services: No Alcohol intake: current Alcohol intake frequency: holidays/special occasions only Patient Tobacco Use Status: Former Tobacco user Years Smoked: Quit 1992 Second Hand Smoke Exposure: No Review of Systems Narrative - General: Denies fever. - Neurological: Reports excessive daytime sleepiness. - Sleep: Reports receiving approximately 6.5 to 7 hours per night. - Gastrointestinal: Reports history of stomach bug. Physical Exam Neuro Other: Mental Status: Alert and oriented to person, place, and time. Normal attention. Normal spontaneous speech, fluency, and comprehension. No obvious issues with mood and memory. Affect is appropriate. Cranial Nerves: CN II: Visual don full to confrontation, visual acuity intact. CN III, IV, : Pupils equal, round, reactive to light and accommodation. Extraocular movements are normal. CN V: Facial sensation is normal. CN VII: Facial movements symmetrical. CN VIII: Hearing intact to bedside conversation is normal. CN IX, X: Palate elevates symmetrically. CN XI: Shoulder shrug and head turn symmetrical. CN XII: Tongue midline without atrophy or fasciculations. Motor: Bulk and tone normal in all extremities. No significant muscle weakness in arms and legs. No drift. Reflexes: Deep tendon reflexes 2+ and symmetric. Plantar response down-going bilaterally. Coordination: Kurfhy-zy-aqcx and emvm-ot-sxlo testing normal. No dysmetria. Gait and Station: No obvious gait abnormality. No ataxia or instability. Extrapyramidal: Full facial expressions and blinking. No rigidity. Movements are appropriate with no tremor or abnormality. Speech: Normal; no dysarthria or tremor. 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 Code(s): G40.209 - Localization-related (focal) (partial) symptomatic epilepsy and epileptic syndromes with complex partial seizures, not intractable, without status epilepticus Category: Medical Qualifiers: Epilepsy type: partial symptomatic Intractability: not intractable Status epilepticus: without status epilepticus Qualified Code(s): G40.209 - Localization-related (focal) (partial) symptomatic epilepsy and epileptic syndromes with complex partial seizures, not intractable, without status epilepticus (2) Arteriovenous malformation: Code(s): Q27.30 - Arteriovenous malformation, site unspecified Category: Medical (3) Hypersomnia: Comment: MSLT at [employer] in 2019: hypersomnia with one nap with SOREM Code(s): G47.10 - Hypersomnia, unspecified Category: Medical (4) Migraine equivalent syndrome: Code(s): G43.109 - Migraine with aura, not intractable, without status migrainosus Category: Medical Plan Impression: 1. Complex partial seizure disorder versus complex migraine 2. History of AVM with gamma knife surgery putting her at risk for complex partial seizure disorder Recommendations: Topiramate 100 mg twice a day Medications: Refilled topiramate 100 mg PO BID 180 tabs 1RF 90 days Coding Level of Care Code Est Pt Level 4 (96893) Diagnoses Partial symptomatic epilepsy with complex partial seizures, not intractable, without status epilepticus G40.209 Epilepsy type: partial symptomatic Intractability: not intractable Status epilepticus: without status epilepticus Arteriovenous malformation Q27.30 Hypersomnia G47.10 Migraine equivalent syndrome G43.109
--- OUTSIDE RECORDS SUMMARY | 2025-07-28 17:45 | XMS_ITS | Clinical Summary ---
Author Organization [facility] Address [address] [place] [address] Phone Care Team Providers Care Farm Management Agent Name Role Phone Bruce Monroe MD Primary Care Provider [phone] Encounters Date Type Department Care Team Description 07/02/2025 7:34 AM EDT - 07/02/2025 11:59 PM EDT [facility] [address] [address] Encounter for screening mammogram for malignant neoplasm of breast Discharge Disposition: Home or Self Care from Last 3 Months Surgical History Surgery Date Site/Laterality Comments HYSTERECTOMY Family History Medical History Relation Name Comments Breast cancer Maternal Grandmother Breast cancer Mother's Sister Relation Name Status Comments Maternal Grandmother Mother's Sister Alive Social History Tobacco Use Types Packs/Day Years Used Date Smoking Tobacco: Never Assessed Comments No Sex and Gender Information Value Date Recorded Sex Assigned at Not on file Legal Sex Female 9:11 PM EST Gender Identity Not on file Sexual Orientation Not on file Obstetrics History Last Filed Vital Signs Vital Sign Reading Time Taken Comments Blood Pressure - - Pulse - - Temperature - - Respiratory Rate - - Oxygen Saturation - - Inhaled Oxygen Concentration - - Weight 99.8 kg (220 lb) 07/02/2025 7:41 AM EDT Height 162.6 cm (5' 4 ) 07/02/2025 7:41 AM EDT Body Mass Index 37.76 07/02/2025 7:41 AM EDT Plan of Treatment Health Maintenance Due Date Last Done Comments Colorectal Cancer Screening: Colonoscopy 1968 Hepatitis B Vaccines (1 of 3 - 19+ 3-dose series) 1987 Cervical Cancer Screening: Pap Smear 1989 Pneumococcal Vaccine: 50+ Years (1 of 1 - PCV) 2018 Cholesterol Screening (Lipid Panel) 08/31/2022 HIV Screening 08/31/2022 Hepatitis C Screening 08/31/2022 Social Influencers of Health Screening 08/31/2022 Depression Screening 09/29/2024 Influenza Vaccine (#1) 2025 , 06/19/2023, 07/05/2022, Additional history exists Breast Cancer Screening 07/02/2027 07/02/20, 06/08/2024, 05/28/2023, Additional history exists DTaP,Tdap,and Td Vaccines (4 - Td or Tdap) 08/23/2029 08/23/2019, 07/30/2019, 07/30/2019 RSV Immunization Adult Patients (1 - 1-dose 75+ series) 2043 Zoster Vaccines Completed 03/02/2023, 10/14/2022 COVID-19 Vaccine Completed 09/01/2024, , 09/24/2022, Additional history exists HIB Vaccines Aged Out No longer eligi [...] Procedure Name Priority Date/Time Associated Diagnosis Comments MG MAMMO DIGITAL SCREENING W JEAN CLAUDE BILAT Routine 07/02/2025 7:47 AM EDT Encounter for screening mammogram for malignant neoplasm of breast from Last 3 Months Results * MG Mammo Digital Screening w Jean Claude bilat (07/02/2025 7:47 AM EDT) Anatomical Region Laterality Modality Breast Bilateral Mammography 07/04/2025 8:57 AM EDT Impressions 07/04/2025 9:01 AM EDT No mammographic evidence of malignancy. A negative mammogram in the presence of a clinically suspicious palpable abnormality does not preclude the possibility of malignancy or alter the indications for biopsy. PQRI CPT II 3341F Code 90885, 68103 PQRI 225 CPT II 7025F TISSUE DENSITY: The breasts are almost entirely fatty. (BI-RADS Category A) IMPRESSION: Benign. BI-RADS CATEGORY: 1 - NEGATIVE RECOMMENDATION: Screening bilateral mammogram is recommended in 1 year. Mammo Location: [facility], [address] [place] [address] -------- FINAL REPORT -------- Dictated By: Noé Loazia Dictated Date: 07/04/2025 08:57 ET Assigned Physician: Noé Loaiza Reviewed and Electronically Signed By: Noé Loaiza Signed Date: 07/04/2025 09:01 ET Workstation ID: [id number] Transcribed By: Self Edit Transcribed Date: 07/04/2025 08:57 ET Narrative 07/04/2025 9:01 AM EDT CLINICAL: The patient is a 55 years Female presenting for routine screening mammography. COMPARISON: Most recently 06/08/2024 and most remotely 07/05/2017. TECHNIQUE: Full-field digital mammography of the breasts bilaterally consisting of tomosynthesis in MLO and CC projection is performed in the [employer]e 2000-D unit. Computer aided detection utilizing the iCAD system was utilized. FINDINGS: The breasts are again seen to be largely fatty replaced. There is no cluster of microcalcifications, mass, or area of architectural distortion. There is no skin thickening or nipple retraction. Procedure Note Noé Loaiza MD - 07/04/2025 CLINICAL: The patient is a 55 years Female presenting for routinescreening mammography. COMPARISON: Most recently 06/08/2024 and most remotely 07/05/2017. TECHNIQUE: Full-field digital mammography of the breasts bilaterallyconsisting of tomosynthesis in MLO and CC projection is performed in the[employer] 2000-D unit. Computer aided detection utilizing the [employer]system was utilized. FINDINGS: The breasts are again seen to be largely fatty replaced. Thereis no cluster of microcalcifications, mass, or area of architecturaldistortion. There is no skin thickening or nipple retraction. IMPRESSION: No mammographic evidence of malignancy. A negative mammogram in the presence of a clinically suspicious palpableabnormality does not preclude the possibility of malignancy or alter theindications for biopsy. PQRI CPT II 3341F Code 90545, 27981 PQRI 225 CPT II 7025F TISSUE DENSITY: The breasts are almost entirely fatty. (BI-RADS CategoryA) IMPRESSION: Benign. BI-RADS CATEGORY: 1 - NEGATIVE RECOMMENDATION: Screening bilateral mammogram is recommended in 1 year. Mammo Location: [facility], [address] [place] [id number] -------- FINAL REPORT -------- Dictated By: Noé Loaiza Dictated Date: 07/04/2025 08:57 ET Assigned Physician: Noé Loaiza Reviewed and Electronically Signed By: Noé Loaiza Signed Date: 07/04/2025 09:01 ET Workstation ID: [id number] Transcribed By: Self Edit Transcribed Date: 07/04/2025 08:57 ET Radha Owusu MD IMG BI PROCEDURES Final Result from Last 3 Months Insurance [facility] Care Teams Farm Management Agent Relationship Specialty Start Date End Date Bruce Monroe MD [address] [place] [address] PCP - General Internal Medicine 06/17/25
--- OUTSIDE RECORDS SUMMARY | 2025-07-28 17:45 | XMS_ITS | Patient Health Record ---
Author Organization [facility] Address [address] [place] [address] Care Team Providers Care Senior Business Process Analyst Name Role Phone DANILO, MARIA T Primary Care Provider Radha Peterson Unavailable [phone] Reason For Referral No Information Medications Medication SIG (Take, Route, Frequency, Duration) Notes Start Date End Date Status Fludrocortisone Acetate 0.1MG 1 ORAL twice daily; Duration: -3 Jsas-MJ 06/04/2013 Active Percocet 2.5-325 MG 1 tablet as needed Orally every 6 hrs; Duration: 3 days 12/08/2014 Active Topamax 75MG 3 ORAL daily; Durati on: -3 Jass-MJ 06/04/2013 Active Provigil 200MG 1 ORAL daily; Durati on: -3 Jass-MJ 05/27/2012 Active Problems Problem Type SNOMED Code ICD Code Onset Dates Problem Status W/U Status Risk Notes Problem Chronic lymphocytic thyroiditis (80532265) Chronic lymphocytic thyroiditis (245.2) Active confirmed Major Problem Obesity (187871128) Obesity, unspecified (278.00) Active confirmed Major Problem Anemia (001628617) Unspecified anemia (285.9) Active confirmed Diag Problem Excessive and frequent menstruation (001178399) Excessive or frequent menstruation (626.2) Active confirmed Diag Plan Of Treatment Pending Test Test Name Order Date MAMMOGRAM, SCREENING 01/13/2015 Insurance Providers Payer Name Payer Address Payer Phone Subscriber Number Group Number Insured Name Patient Relationship to Insured Coverage Start Date Coverage End Date [facility] [address] [place] [address] [id number] OLENA MONTOYA Self - patient is the insured Medical (General) History Medical History History ICD Code [id number]: Brain arterioven ous malformation, Start date: 06/06/2014, Active, , Major Unspecified anemia Unspecified anemia Excessive or frequent menstruation Chronic lymphocytic thyroiditis Obesity, unspecified Surgical History Surgery Date(Month/Year) Cholecystectomy Gastric Lap Band x 2 Proton Tx and embolization of Brain AVM Hydrothermal ablation with h ysteroscopy D & C with Dr. Owusu @ [facility] DX: menorrhagia 12/26/14
--- OUTSIDE RECORDS SUMMARY | 2025-07-28 17:45 | XMS_ITS | Patient Health Record ---
Author Organization Bruce Monroe MD Address [address] [place] [phone] Care Team Providers Care Radio Intelligence Operator Name Role Phone MabelBruce Primary Care Provider [phone] Allergies No Known Allergies Results Component Value Reference Range Notes UA CC w/rflx Micro + Cult Reviewed date:08/23/2024 12:36:34 PM Interpretation: Performing Lab:[facility], [address] [place] [phone] Notes/Report: [id number] Urine, Clean Catch Color Urine Yellow Appearance Urine Turbid PH 8.5 5.0-9.0 Glucose Urine UA Negative Negative mg/dL Urine Blood Negative Negative Specific [place] - Urine 1.020 1.005-1.025 Urine Protein Negative Neg-Trace mg/dL Urine Ketones Negative Negative mg/dL Nitrite Urine Negative Negative Leukocyte Esterase Urine Negative Negative XR DEXA axial skeleton Reviewed date:12/10/2024 05:02:37 PM Interpretation: Performing Lab: Notes/Report: [facility] [address] [place], [place] [address] Mammography Report Signed Patient: Cesar Dwyer MR#: [id number] : 1970 Acct:[id number] Age/Sex: 54 / F ADM Date: 12/10/24 Loc: MAMMO Attending Dr: Bruce Monroe MD Ordering Physician: Bruce Monroe MD Results: Date of Service: 12/10/24 Follow Up: Procedure(s): XR DEXA axial skeleton Accession Number(s): [id number] cc: Bruce Monroe MD EXAMINATION: DXA BONE DENSITY AXIAL HISTORY: Estrogen deficiency TECHNIQUE: LMN-1 Dual energy absorptiometry (DEXA) of the lumbar [...] of the [employer] [place] for Metabolic Bone Disease, a World Health Organization (WHO) Collaborating Center. Electronically signed by: Ottoniel Nix MD 12/10/2024 02:25 PM EDT RP Dictated By: Ottoniel Nix MD Signed By: <Electronically signed by Ottoniel Nix MD in OV> 12/10/24 1425 DD/ 1345 TD/TT: 12/10/24 1410 Warper Tender: [facility] [address] [place] [address] Mammography Report Signed Patient: Cesar Reyes MR#: [id number] : 1970 Acct:[id number] Age/Sex: 54 / F ADM Date: 12/10/24 Loc: HO.MAMMO Attending Dr: Bruce Monroe MD Ordering Physician: Bruce Monroe MD Results: Date of Service: Follow Up: Procedure(s): XR DEX A axial skeleton Accession Number(s): [id number] cc: Bruce Monroe MD EXAMINATION: DXA BON E DENSITY AXIAL HISTORY: Estrogen deficiency TECHNIQUE: Streamweaver Dual energy absorptiometry (DEXA) of the lumbar [...] prior exam. FRACTURE RISK: The FRAX index shadia sts a ten year probability of major [...] is a trademark of the [employer]'s [place] for Metabolic Bone Disease, a World Health Organization (WHO) Collaborating Center. Electronically joanna d by: Ottoniel Nix MD 12/10/2024 02:25 PM EDT RP Dictated By: Ottoniel Nix MD Signed By: <Alexsandra valladares signed by Ottoniel Nix MD in OV> 12/10/24 1425 DD/ 1345 TD/TT: 12/10/24 1410 Warper Tender: Pathology Reviewed date:07/20/2025 05:41:59 PM Interpretation: Performing Lab:[facility], [address] [place] [phone] Notes/Report: Name: Cesar Dwyer Age/Sex: 55/F : 1970 Unit#: [id number] Attend Dr: Loly Buck MD Re07/19/25 [place] [facility] [place] [facility] Disch: SPEC : [id number] RECD : 07/19/25 STATUS: DANIELElle ARANA NUM: [id number] KIMBERLY: 07/19/25-[address]: Loly Buck MD ENTERED: 07/19/25 26 SP TYPE: Surgical OTHR DR: Bruce Monroe MD ORDERED: HE Stain/3, Gross Micro L4 Diagnosis Colon, ascending, po lyp: Tubular adenoma, likely excised; negative for high-grade dysplasia and carcinoma. Clinical History Pre-Op Dx: Screening Post-Op Dx: Divertic ulosis, colon polyp, hemorrhoids Microscopic Description Microscopic sections reviewed. Material Received Ascending colon polyp Gross Description Received in formalin labeled ?ascending colon polyp? is a fragment of alcantar-white soft tissue measuring 0.3 cm in greatest dimension which is wrapped in lens paper and entirely submitted for microscopic exam ination, 1 piece in cassette A. ([facility]) IHC S/NG Disclaimer NOTE: Unless otherwi se stated, all tissue is formalin-fixed and paraffin-embedded. Some or all of the immunohis tochemical tests reported herein may have been developed and their performance characte ristics determined by [facility]. They have not been cleared or appr alie by the U.S. Food and Drug Administration (FDA). However, the FDA has determined that such clearance or approval is not necessary. This laboratory is certified under the Clinical Laboratory Improvement Amendments of 1988 (CLIA) as qualified to perform high comp lexity clinical laboratory testing. Copies To: Bruce Monroe MD [facility] [address] [place] [address] [place] [id number] CONTINUED ON NEXT PAGE Name: Eduardo LockwoodCesar pratt Age/Sex: 55/F : 1970 Unit#: [id number] Attend Dr: Loly Buck MD Re07/19/25 [place] [facility] [place] [facility] Disch: SPEC : [id number] RECD : 07/19/250 STATUS: NAILA MAHANSigrid NUM: [id number] KIMBERLY: 07/19/25-[address]: Loly Buck MD ENTERED: 07/19/25- 26 SP TYPE: Surgical OTHR DR: Bruce Monroe MD ORDERED: DAT Camargo/3, Gross Micro L4 Copies To: (Continued) Loly Buck MD [facility] [address] [place] [id number] Signed (si gnature on file) Justine Tonya 07/20/25 1424 END OF REPORT Reason For Referral Reason FAMILY HISTORY OF CO MYLENE CANCER Diagnosis 1 Family hx of colon c ancer (Z80.0) Referral Organization Bruce Monroe MD Referring Provider First Name Bruce Referring Provider Last Name Mabel Referring Provider Speciality Internal M edicine Referred Provider Loly Buck Referred Provider Specialty Gastroentero logy General Notes Joanna Alcala 09/13/2024 10:48:05 AM EST > PER [facility], NO APPT YET BUT REFERRAL IN QUEU FOR SCHEDULING, Joanna Alcala 09/24/2024 09:49:40 AM EST > NO APPT SCHEDULED YET PER GASTR[facility], Joanna Alcala 10/08/2024 11:27:33 AM >APPT SCHEDULED FOR 12/14 24 AT 3:45PM/ PATIENT R/S FOR APRIL 27 8AM, Joanna Alcala 04/28/2025 11:40:15 AM >OFFICE NOTE RECD FOR 04/27 VISIT Referral Priority Routine Referral Appointment Date 04/27/2025 Reason Vertigo please eval and treat Diagnosis 1 Vertigo of central o rigin (H81.4) Referral Organization Bruce Monroe MD Referring Provider First Name Bruce Referring Provider Last Name Mabel Referring Provider Speciality Internal M edicine Referred Provider [facility] Referred Provider Specialty Physical The rapist [...] BY FLORENCE TH EVERY DAY for 30 06/30/2025 Active Topamax 100 MG 1 tablet Orally bid Active Immunizations Vaccine Route Administration Date Status Comme nts Flu Vaccine Unknown 06/23/2018 Administered pt was give n the vaccine at Dr Carrasco's office. Fluarix Quadrivalent Unknown 06/08/[address] Carrasco Fluarix Quadrivalent IM Intramuscular 06/14/2019 Administered TDaP IM Intramuscular 07/30/2019 Administered pt had the vaccine at [facility] [address] [facility] [facility] Fluarix Quadrivalent IM Intramuscular 06/30/2020 [...] Quadrivalent - 150 IM Intramuscular 06/18/2024 Administered Fluarix Quadrivalent - 150 IM Intramuscular 07/08/2025 Administered Social History Tobacco Use: Social History [...] Status Risk Notes Problem Carpal tunnel syndrome (16364040) Carpal tunnel syndrome (G56.00) Active confirmed Problem 405680592 Seizure disorder (G40.909) Active confirmed Problem Menopause (770696233) Menopause (Z78.0) Active confirmed Problem Vertigo (449612399) Vertigo (R42) Active confirmed Problem 72520619 Obstructive slee p apnea (G47.33) Active confirmed Problem 33319711 Iron deficiency anemia, unspecified iron deficiency anemia type (D50.9) Active confirmed Problem 89544670 Sleep disorder (G47.9) Active confirmed Problem 455205600 BMI 39.0-39.9,ad ult (Z68.39) Active confirmed Problem 733624947 Arthritis of kne e (M17.10) Active confirmed Problem 05530283 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 Problem Mild cognitive disorder (306010863) Mild cognitive disorder (F09) Active confirmed Problem 974881762 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) Active confirmed Problem 219072743 Status post jade sarah banding surgery (Z98.84) Active confirmed Problem 168971059 History of arteriovenous malformation (AVM) (Z87.74) Active confirmed Problem 90470598 Hypersomnolence disorder (G47.10) Active confirmed Problem Vertigo of central origin (60127217) 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 Problem 425691641 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 Vital [...] Bruce Monroe MD [address] [place] [id number] 07/08/2025 Bruce Monroe Encounter for administration of vaccine Z23 Bruce Monroe MD [address] [place] [id number] 08/30/2024 Bruce Monroe Annual physical exam Z00.00 ; Family hx of colon cancer Z80.0 ; Seizure disorder G40.909 ; Iron deficiency anemia, unspecified iron deficiency anemia type D50.9 and Screening for osteoporosis Z13.820 Bruce Monroe MD [address] [place] [id number] 12/03/2024 Bruce Monroe Carpal tunnel syndro me G56.00 and Knee pain M25.569 [address] MD [address] [place] [id number] 03/07/2025 Bruce Monroe Seizure disorder G40.909 and 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 [address] Monroe MD [address] [place] [id number] 09/06/20[address] [place] [address] [id number] 09/23/2024 Bruce Monroe Menopause Z78.0 Bruce Monroe MD [address] [place] [address] [id number] 02/11/2025 Bruce Monroe Assessments Encounter Date Diagnosis (ICD Code) Assessment Notes Treatment Notes Treatment Clinical Notes Section Notes 07/08/2025 Encounter for administration of vaccine (ICD-10 - Z23) 08/30/2024 Annual physical exam (ICD-10 - Z00.00) labs reviewed and discussed with patient 08/30/2024 Family hx of colon cancer (ICD-10 - Z80.0) needs appt with gi at [facility]/ REFERRAL FAXED TO [facility] 12/03/2024 Carpal tunnel syndrome (ICD-10 - G56.00) order faxed to [facility] CS dept , pending diagnostic testing 12/03/2024 Knee pain (ICD-10 - M25.569) have her go to walk in at [facility]/ patient was given information regarding [facility] walk-in [...] axial skeleton 08/10/2021 Next Appt Details Provider Name:Bruceradha Cobb ier, 08/23/2025 07:00:00 AM, [address] [place] [address], [address], [phone], Provider Name:Bruce Miya Jordyn ier, 09/01/2025 03:30:00 PM, [address] [place] [address], Suite [facility], [place], [place], [phone], Insurance Providers Payer Name Payer Address Payer Phone Subscriber Number Group Number Insured Name Patient Relationship to Insured Coverage Start Date Coverage End Date [address] [place] [phone] [id number] Cesar Dwyer Self - patient is the insured Medical (General) History Medical History History ICD Code Colonoscopy 12/2017 - repeat 5 years.06/30 10/23 Colonoscopy repeat 5y. Surgical History Surgery Date(Month/Year) Total Abd Hysterectomy and Bilateral Franky pingo-oophorectomy 02/2017
--- OUTSIDE RECORDS SUMMARY | 2025-07-28 17:45 | XMS_ITS | Encounter Summary ---
Author Organization [facility] Address [address] [place] [address] Phone Care Team Providers Care Toll Service Observer Name Role Phone Claudio Ledbetter MD Primary Care Provider Encounter Details Date Type Department Care Team (Late st Contact Info) Description 12/24/2017 Procedure Pass [facility], [address] [address] Social History Tobacco Use Types Packs/Day Years Used Date Smoking Tobacco: Former Cigarettes 1 8 1 985 - 1992 Smokeless Tobacco: Never Alcohol Use Standard Drinks/Week Comments Yes 0 (1 standard drink = 0.6 oz pur e alcohol) occasional Comments Unknown Sex and Gender Information Value Date Recorded Sex Assigned at Not on file Legal Sex Female 5:36 PM EST Gender Identity Not on file Sexual Orientation Not on file documented as of this encounter Plan of Treatment Not on file documented as of this encounter Visit Diagnoses Not on filedocumented in this encounter Care Teams Toll Service Observer Relationship Specialty Start Date End Date Claudio Ledbetter MD [address] [place] [address] PCP - General 10/02/17 documented as of this encounter Additional Source Comments The information contained in this document represents components of the legal health record. It is not the complete legal health record.[facility]
--- OUTSIDE RECORDS SUMMARY | 2025-07-28 17:45 | XMS_ITS | Encounter Summary ---
Author Organization [facility] Address [address] [facility] [address] [place] [phone] Phone Care Team Providers Care Mushroom Packer Name Role Phone Claudio Ledbetter MD Primary Care Provider Encounter Details Date Type Department Care Team (Late st Contact Info) Description 05/09/2020 Ancillary Orders [facility],Outside Imaging [address] [place] [address] System, Provider Not In, [place] [address] Social History Tobacco Use Types Packs/Day Years [...] on filedocumented in this encounter Care Teams Mushroom Packer Relationship Specialty Start Date End Date Claudio Ledbetter MD [address] [place] [address] [address] [place] [address] PCP - General 10/02/17 documented as of this encounter Additional Source Comments The information contained in this document represents components of the legal health record. It is not the complete legal health record.[facility]
--- OUTSIDE RECORDS SUMMARY | 2025-07-28 17:46 | XMS_ITS | Encounter Summary ---
Author Organization [facility] Address [address] [place] [address] Phone Care Team Providers Care In Home Sales Consultant Name Role Phone Claudio Ledbetter MD Primary Care Provider Encounter Details Date Type Department Care Team (Late st Contact Info) Description 12/16/2017 Procedure Pass [facility], [facility] - [address] [address] Social History Tobacco Use Types Packs/Day Years Used Date Smoking Tobacco: Former Cigarettes 1 8 1 5 - 1992 Smokeless Tobacco: Never Alcohol Use [...] on filedocumented in this encounter Care Teams In Home Sales Consultant Relationship Specialty Start Date End Date Claudio Ledbetter MD [address] [place] [address] PCP - General 10/02/17 documented as of this encounter Additional Source Comments The information contained in this document represents components of the legal health record. It is not the complete legal health record.[facility]
--- OUTSIDE RECORDS SUMMARY | 2025-07-28 17:46 | XMS_ITS | Clinical Summary ---
Author Organization [facility] Address [facility] [employer] [address] [address] Phone Care Team Providers Care Pathology Technician Name Role Phone Claudio Ledbetter MD Primary Care Provider Allergies Active Allergy Reactions Criticality Noted Date Comments Other Sneezing 08/04/2019 Environmental Allergies: Dogs and Cats Medications modafiniL (PROVIGIL) 200 MG tablet Take 200 mg by mouth daily. Active topiramate (TOPAMAX) 100 MG tabletIndications :AVM Take 100 mg by mouth 2 (two) times a day. Indication s: AVM Active MULTIVITAMIN ORAL Take by mouth. Active ferrous sulfate (IRON ORAL) Take by mouth 2 (two) times a day. Active calcium carbonate/vitamin D3 (CALCIUM 500 + D ORAL) Take by mouth. Active zinc sulfate (ZINCATE) 50 mg zinc (220 mg) capsule Take 220 mg by mouth daily. Active estradioL (XIOMARA) 0.075 mg/24 hrIndications:Hor francia replacement therapy Place 1 patch onto the skin 2 (two) times a week. 24 patch 3 12/27/2024 Active Active Problems Problem Noted Date Diagnosed Date Hormone replacement therapy 12/23/2023 Overview (12/23/2023): 2023: Discussed pros and cons of long-term use, will continue at this time can consider trying a lower dose next year Assessment & Plan (12/24/2024 3:52 PM EDT): Prefers to continue at this dose Adenoma of left adrenal gland 01/29/2018 Assessment & Plan (01/29/2018 3:30 PM EDT): Mass of left adrenal gland was seen on CT scan and MRI recently. I have given her the name of Dr. Kenneth Redding of [facility] if she wishes to follow up on this. Lower abdominal pain 12/16/2017 Overview (12/16/2017): central Assessment & Plan (01/29/2018 3:40 PM EDT): The patient is still with central abdominal pain that hurts with many activities including coughing and sneezing. She has had multiple abdominal surgeries and with no cause found on CT, MRI or colonoscopy, this is most likely scar tissue. She understands that removing scar tissue only causes more scar tissue. We discussed a number of treatment modalities she might consider trying for this pain. Assessment & Plan (12/16/2017 2:32 PM EDT): The patient has lower abdominal pain with question of hernia. She has not felt a bulge but has some discomfort with certain movements. I cannot appreciate a hernia on exam today. She understands this may be discomfort from scar tissue. We will start with a CT scan which is ordered. After the results of this is known, we will set her up for a colonoscopy. Chronic fatigue 12/16/2017 Assessment & Plan (01/29/2018 3:33 PM EDT): The patient says she has had chronic fatigue since she was in the 7th grade with multiple studies done and no treatment that works. CPAP does not make a difference in her tiredness. We discussed consideration of a neurology consult. Assessment & Plan (12/16/2017 2:43 PM EDT): The patient says she is tired all the time and has anemia. She has a history of Tyson's but is unsure if she has hypothyroidism. CPAP does not help her. CBC and BMP are ordered. She is also advised not to wait until she is 48 to have a colonoscopy and she would like to set that up as soon as the issue of a hernia is resolved. Family history of colon cancer 12/16/2017 Assessment & Plan (01/29/2018 3:35 PM EDT): The patient just had a normal colonoscopy. She has a family history of colon cancer and we discussed that she should get repeat colonoscopies every five years. Assessment & Plan (12/16/2017 2:29 PM EDT): The patient's grandfather had colon cancer. The patient has never had a colonoscopy. With this family history, her chronic fatigue, abdominal pain and anemia, she will be set up for a colonoscopy. 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 Stable and/or controlled chronic conditions may reduce complications associated with your chronic condition (s). Assessment & Plan (12/16/2017 2:40 PM EDT): The patient has a history of Tyson's. She says she is tired all the time and has anemia but is unsure if she is hypothyroid at this time. Labs have been ordered. Obesity Assessment & Plan (12/16/2017 2:38 PM EDT): The patient's obesity may affect the presenting issue of surgical procedure (s) and may increase the risk of slow healing wound (s), infection (s), kidney, lung and/or heart problems. Stable and/or controlled chronic conditions may reduce complications associated with your chronic condition (s). The patient has had two lap bands with removal and one gastric sleeve with both weight loss and some weight gain. AVM (arteriovenous malformation) brain Assessment & Plan (01/29/2018 3:28 PM EDT): Patient has a history of arteriovenous malformation of the brain treated with proton radiation & and embolization in 2004. Assessment & Plan (12/16/2017 2:40 PM EDT): The patient's AVM may affect the presenting issue of surgical procedure (s) and may increase the risk of slow healing wound (s), infection (s), kidney, lung and/or heart problems. Stable and/or controlled chronic conditions may reduce complications associated with your chronic condition (s). She has received some proton radiation and embolization. Encounters Date Type Department Care Team Description 06/14/2025 Telephone [facility] [address] [place] [address] Dr Shaw, [place] [address] Gayle Araya LPN Mammogram Order from Last 3 Months Family History Medical History Relation Comments Breast cancer Cousin maternal Alcohol abuse Father Lung cancer Father lung Breast cancer Maternal Aunt Colon cancer Maternal Grandfather Breast cancer Maternal Grandmother Atrial fibrillation Mother Macular degeneration Mother Osteoporosis Mother Relation Status Comments Cousin Father Maternal Aunt Maternal Grandfather Maternal Grandmother Mother Alive Social History Tobacco Use Types Packs/Day Years Used Date Smoking Tobacco: Former Cigarettes 1 8 1 985 - 1992 Smokeless Tobacco: Never Tobacco Cessation:Counseling Given: Not Answered Alcohol Use Standard Drinks/Week Comments Yes 0 (1 standard drink = 0.6 oz pur e alcohol) occasionally Education Answer Date Recorded Are you interested in more education? Not on heidi e 02/01/2023 Are you concerned about learning? Not on file 02/01/2023 No 02/01/2023 No 02/01/2023 Digital Access Answer Date Recorded No 02/19/2023 No 02/19/2023 Reliable internet access at home? Not on file 02/19/2023 Device with a working camera? 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 file Not on file Not on fi le Last Filed Vital Signs Vital Sign Reading Time Taken Comments Blood Pressure 132/86 12/24/2024 2:00 PM EDT Pulse 62 01/29/2018 2:56 PM EDT Temperature 36.5 C (97.7 F) 01/29/2018 2:56 PM EDT Respiratory Rate 18 01/23/2018 9:09 AM EDT Oxygen Saturation 98% 01/29/2018 2:58 PM EDT Inhaled Oxygen Concentration - - Weight 99.5 kg (219 lb 6.4 oz) 12/24/2024 2:00 P M EDT Height 165.1 cm (5' 5 ) 12/20/2020 2:45 PM EDT Body Mass Index 36.51 12/20/2020 2:45 PM EDT Plan of Treatment Health Maintenance Due Date Last Done Comments LIPID PANEL 1970 DEPRESSION SCREENING 1980 HEPATITIS C SCREENING 1986 HIV ONE-TIME SCREENING (18-65 YEARS) 1986 PAP SMEAR 1989 COLOGUARD 2013 FIT TEST 2013 FOBT 2013 SIGMOIDOSCOPY 2013 VIRTUAL COLONOSCOPY 2013 PNEUMOCOCCAL VACCINES (50+ years) (1 of 1 - PCV) 2018 SCREENING FOR DIABETES 12/16/2020 12/16/2017 INFLUENZA VACCINE (#1) 2025 , 06/19/2023, 07/05/2022, Additional history exists COVID-19 VACCINE (2024- season) 2025 09/01/2024, 07/17/2023, 07/17/2023, Additional history exists MAMMOGRAM 06/08/2026 06/08/2024, 11/28, 05/14/2021, Additional history exists COLONOSCOPY 01/24/2028 01/23/2018 COLORECTAL CANCER SCREENING 01/24/2028 Adult Td,Tdap Booster 08/23/2029 08/23/2019, 019 RSV VACCINE (1 - 1-dose 75+ series) 2043 ZOSTER VACCINES Completed 03/02/2023, 10/14/2022 SMOKING STATUS SCREENING (Once After 26 Yrs) Completed 12/24/2024 HEPATITIS A VACCINES Aged Out No long er eligible based on patient's age to complete this topic HIB VACCINES Aged Out No longer eligi ble based on patient's age to complete this topic MENINGOCOCCAL VACCINES (ACWY) Aged Out No longer eligible based on patient's age to complete this topic MENINGOCOCCAL VACCINES (B) Aged Out N o longer eligible based on patient's age to complete this topic Medical Devices Implanted Type Area Machinist Helper Device Identifier Shelf Expiration Date Model / Serial / Lot Skull Procedures Procedure Name Priority Date/Time Associated Diagnosis Comments HM MAMMOGRAPHY Routine 06/08/2024 1:54 PM EDT ENDOSCOPY, COLON 01/23/2018 8:14 AM EDT from Last 3 Months or Most Recently Relevant to Health Maintenance Results * HM MAMMOGRAPHY FOR RESULT ENTRY ONLY (06/08/2024 1:54 PM EDT) us Radha Owusu MD HEALTH MAINTENANCE Final Result * ENDOSCOPY, COLON (01/23/2018 8:14 AM EDT) Narrative Transcriptions Cash Castro MD - 01/23/2018 8:14 AM EDT Patient Name: Cesar Ring Attending MD:: CASH CASTRO MD Procedure Date: 01/23/2018 8:14 AM Date of : 1970 Age: 47 Admit Type: Outpatient Gender: Female Room: [facility] Referring MD: Claudio Ledbetter MD Exam Type: Colonoscopy Indications: Lower abdominal pain Medications: Monitored Anesthesia Care Procedure: Informed consent was obtained from the patient after discussion of the indications, limitations,alternatives, benefits, and risks of the procedure. Risksspecifically discussed include but are not limited to medication reactions, missed lesions, bleeding, perforation, orthe need for emergent surgery. Throughout the procedure, the patient's blood pressure, pulse, end-tidal CO2, and oxygen saturations were monitored continuously. The Olympus adult variable colonoscope [id number] #5 was introduced through the anus and advanced to the cecum, identified by the appendiceal orifice, IC valve and transillumination. The colonoscopy was performedwithout difficulty. The patient tolerated the procedure well.The quality of the bowel preparation was adequate toidentify polyps. Complications: No immediate complications. Findings: The perianal and digital rectal examinations werenormal. The entire examined colon appeared normal on direct and retroflexion views. Impression: - The entire examined colon is normal on direct and retroflexion views. - No specimens collected. Recommendation: - Discharge patient to home. - Resume previous diet. - Continue present medications. - Repeat colonoscopy in 10 years for screeningpurposes. - Return to my office PRN. CASH CASTRO MD 01/23/2018 8:56:36 AM This report has been signed electronically. Number of Addenda: 0 Note Initiated On: 01/23/2018 8:14 AM Procedure Code(s): --- Professional --- 97006, Colonoscopy, flexible; diagnostic, including collection of specimen(s) by brushing or washing, when performed (separateprocedure) --- Technical --- 31756, Colonoscopy, flexible; diagnostic, including collection of specimen(s) by brushing or washing, when performed (separateprocedure) Diagnosis Code(s): --- Professional --- R10.30, Lower abdominal pain, unspecified --- Technical --- R10.30, Lower abdominal pain, unspecified CPT copyright 2016 [employer]. All rights reserved. The codes documented in this report are preliminary and upon home health care case manager reviewmay be revised to meet current compliance requirements. [address], [place] [id number] us Claudio Ledbetter MD GI PROCEDURE ORDERABLES Final Result from Last 3 Months or Most Recently Relevant to Health Maintenance Insurance O O O O O O O O O [facility] Address: [address] [address] Care Teams Pathology Technician Relationship Specialty Start Date End Date Claudio Ledbetter MD [address] [place] [address] PCP - General 10/02/17 Additional Source Comments The information contained in this document represents components of the legal health record. It is not the complete legal health record.[facility]
--- OUTSIDE RECORDS SUMMARY | 2025-07-28 17:47 | XMS_ITS | Encounter Summary ---
Author Organization [facility] Address [address] [place] [address] Phone Care Team Providers Care Travel Professional Name Role Phone Claudio Ledbetter MD Primary Care Provider Encounter Details Date Type Department Care Team (Late st Contact Info) Description 01/23/2018 Procedure Pass [facility] Endoscopy Admitting Dept Virtual Department [address] [place] [address] Social History Tobacco Use Types Packs/Day Years Used Date Smoking Tobacco: Former Cigarettes 1 8 1 - 1992 Smokeless Tobacco: Never Alcohol Use Standard Drinks/Week Comments Yes 1 (1 standard drink = 0.6 oz pur [...] on filedocumented in this encounter Care Teams Travel Professional Relationship Specialty Start Date End Date Claudio Ledbetter MD [address] [place] [address] PCP - General 10/02/17 documented as of this encounter Additional Source Comments The information contained in this document represents components of the legal health record. It is not the complete legal health record.[facility]
--- OUTSIDE RECORDS SUMMARY | 2025-07-28 17:47 | XMS_ITS | Data Portability ---
Author Organization [place] [facility] Address [address] [place] [id number] Care Team Providers Care Logger Name Role Phone LUKE QUICK OTHER Assessment [...] Name and Address Organization Details Recorded Time Dysfuncti on of eustachia n tube 63623075 Active 2014 Eustachia n tube dysfuncti on; Note: Date Diagnosed : 05/03/2015 11:41 AM (381.81) Not Available [facility] 4 03:14:58 Bilateral disorder of Eustachia n tubes 76984763589 76236 Active 2014 Other specified disorders of Eustachia n tube, bilateral ; Note: Date Diagnosed : 08/07/2015 4:32 PM (H69.83) Not Available [facility] 4 03:14:57 Pain of right temporoma ndibular joint 31443215118 516993 Active 2017 Arthralgi a of right temporoma ndibular joint; Note: Date Diagnosed : 10/03/2017 1:55 PM (M26.621) Not Available [facility] 4 03:14:58 Otalgia of right ear 2321773714 Active 2017 Otalgia, right ear; Note: Date Diagnosed : 10/03/2017 2:10 PM (H92.01) Not Available [facility] 4 03:14:57 Dizziness and giddiness 255733652 Active 2017 Dizziness and giddiness ; Note: Date Diagnosed : 10/03/2017 1:59 PM (R42) Not Available [facility] 4 03:14:57 Benign paroxysma l positiona l vertigo 461947439 Active 2018 Benign paroxysma l vertigo, right ear; Note: Date Diagnosed : 11/02/2018 3:59 PM (H81.11) Not Available Count includes the [facility] 4 03:14:57 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 ; Note: Date Diagnosed : 08/06/2019 1:39 PM (M27.0) Not Available Count includes the [facility] 4 03:14:58 Benign neoplasm of mouth region 965780687 Active 2018 Benign neoplasm of other parts of mouth; Note: Date Diagnosed : 08/06/2019 1:41 PM (D10.39) Not Available Count includes the [facility] 4 03:14:57 Vertigo 159896173 Active 2024 MATT LEAVITT MA, CCC-A [address] [place] [address], [place], [address] , [facility] 5 14:21:06 Abnormal auditory perceptio n 46824485 Active 2024 MATT LEAVITT MA, [facility] [address],[place] [address], [place], [address] , [facility] 5 14:21:17 Bilateral tinnitus 99348356350 02 Active 2024 SERGE DICK MD [address],[place] [address], [place], [address] , [facility] 5 15:16:48 Problem Notes None recorded. Procedures Surgical History Date Name Laterality Status Provider Name and Address Organization Details Recorded Time 10/07/2024 Air & Speech Audio with Tymps - 76711, 15016 & 67704 completed MATT LEAVITT MA, [facility] [address],[place] [address], [place], [address], [facility] 10/07/2024 14:21:25 Imaging Results None recorded. Procedure Notes None recorded. Medical Equipment None Reported. Medications Name Sig Start Date Stop Date Status Note LastModified by Organization Details LastModified Time bupropion HCl SR 150 mg tablet,12 hr sustained -release 11/09 completed Medicati on ID: [id number] D uration Value: 30 Brand Name: bupropio n HCl Send Method: E-Prescr ibed Sub s Allowed: subs OK Speci al Instruct ion: TAKE 1 TABLET BY MOUTH TWICE A DAY Medi cationGe nericNam e: bupropio n HCl Not Available Not Available Not Available vitamin A 2,400 mcg capsule 11/09 completed Medicati on ID: [id number] Br and Name: vitamin A Send Method: E-Prescr ibed Sub s Allowed: subs OK Medic ationGen ericName : vitamin A Not Available Not Available Not Available azithromy harley 250 mg tablet active Medicati on ID: [id number] B rand Name: azithrom ycin Sen d Method: E-Prescr ibed Sub s Allowed: subs OK Medic ationGen ericName : azithrom ycin Not Available Not Available Not Available Claritin 10 mg tablet 11/09 completed Medicati on ID: [id number] Br and Name: Claritin Send Method: E-Prescr ibed Sub s Allowed: subs OK Medic ationGen ericName : Claritin Not Available Not Available Not Available Provigil 100 mg tablet 11/09 completed Medicati on ID: [id number] Br and Name: Provigil Send Method: E-Prescr ibed Sub s Allowed: subs OK Medic ationGen ericName : Provigil Not Available Not Available Not Available modafinil 200 mg tablet TAKE 1 TABLET BY MOUTH EVERY DAY active Not Available Not Available No t Available meclizine 25 mg tablet active Medicati on ID: [id number] B rand Name: meclizin e Send Method: E-Prescr ibed Sub s Allowed: subs OK Medic ationGen ericName : meclizin e Not Available Not Available Not Available azelastin e 137 mcg (0.1 %) nasal spray INHALE 1 SPRAYS EACH NOSTRIL TWICE DAILY active Not Available Not Available No t Available albuterol sulfate HFA 90 mcg/actua tion aerosol inhaler active Medicati on ID: [id number] B rand Name: albutero l sulfate Send [...] mg tablet 11/09 completed Medicati on ID: [id number] D uration Value: 90 Brand Name: fludroco [...] Diagnosis SNOMED-CT Code Diagnosis ICD10 Code Diagnosis IMO Codes Diagnosis Note 59435 SERGE DICK MD [facility] [address] [address] 10/07/2024 13:45:49 10/07/2024 15:17:31 Vertigo 515213107 R42 Abnormal a uditory perception 73609291 H93.299 Audiologic al evaluation results: Right ear: Normal hearing with excellent word recognitio n. Left ear: Normal hearing with excellent word recognitio n. Tympanomet ry: Right Ear:Type Ad Left Ear:Type A Bilateral tinnitus 45954 76049 102 H93.13 Health Concerns Section Related Observation LastModified by Organization Detai ls LastModified Time None Recorded Concern Status LastModified by Organization Details LastModified Time None Recorded Advance Directives Directive None Recorded Payers Insurance Date Sequence Insurance Name Policy Number Policy Tian Covered Member ID Tian Member ID Guarantor Name 10/07/[address] [place] [address] [id number] Cesar Cadet [id number] Cesar Cadet Notes Date Note Type Note Provider Name and Address Organization Details Recorded Time 10/07/2024 text/html ROS as noted in the HPI dizzy and abnormal hearingfelt like pop rocks in earsonset 06/2024 with dizzyreturned to PTfeels 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 audio normal. SERGE DICK MD [address] [place] [address], [place], [address], [facility] - [facility] 10/07/2024 15:17:17 OBGyn Episode No OBEpisode recorded.
== END 2025-07-28 15:05 | disposition home or self-care (01) ==
PROVIDERS: PCP Internal Medicine; Referring Provider Internal Medicine; Visit Provider Psychiatry & Neurology Neurology
DX: G40.209 Localization-related (focal) (partial) symptomatic epilepsy and epileptic syndromes with complex partial seizures, not intractable, without status epilepticus (principal); Q27.30 Arteriovenous malformation, site unspecified; G47.10 Hypersomnia, unspecified; G43.109 Migraine with aura, not intractable, without status migrainosus
CPT/HCPCS: 99214

== ENCOUNTER 2025-08-16 14:58 | Outpatient (AMB) | payer OTHER, SELFPAY ==
[2025-08-16 15:05] VITALS: BP 110/70; PULSE 72; O2SAT 100; BMI 38.0
--- NOTE | 2025-08-16 15:05 | MHC.OFFVIS ---
Vital Signs 08/16/25 15:05 Height 5 ft 4 in Weight 221 lb 9.033 oz BMI 38.0 BP 110/70 Blood Pressure Location Lt brachial Position Sitting Pulse 72 Pulse Source Pulse Oximeter Pulse Oximetry (%) 100 Oxygen Delivery Method Room Air Intake Visit Reasons: Obstructive sleep apnea Intake Note: pt is here for follow up and states she feels okay, gets up every morning with exercise, having knee issues Funeral Service Manager: Funeral Service Manager offered & declined Allergies environmental allergies Allergy (Unknown, Verified 08/16/25 15:27) Unknown Medication List - Last Reconciled 08/16/25 by Claudio Ledbetter MD ascorbic acid (vitamin C) 250 mg PO DAILY cholecalciferol (vitamin D3) 50 mcg PO DAILY estradiol 1 patch transdermal 2XW ferrous sulfate (Feosol) 325 mg PO DAILY ipratropium bromide 1 spray intranasal DAILY modafinil 200 mg PO DAILY topiramate 100 mg PO BID 90 days Do you need a note to return to daycare/school/sports/work: No HPI HPI Obstructive sleep apnea: Details: 55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 For 6 months follow-up She uses her CPAP every night regularly, missed a few nights during the last month because she was awake from the house. She has no issues with the use of CPAP. Wakes up early in the morning and does some exercise. She does use modafinil later in the day, and stays awake. Her migraine headaches is under good control. Only problem she has is knee pain. [facility] Medical History Arteriovenous malformation Hyperthyroidism Post covid-19 condition, unspecified Somnolence, daytime WHITNEY (obstructive sleep apnea) Obesity Surgical History Hx of hysterectomy Hx of brain surgery Hx of knee surgery Family History Father Medical history unknown Mother Medical history unknown Social History Are you a primary clinical care leader to a significant other at home: No Do you presently have visiting nurse or other home services: No Alcohol intake: current Alcohol intake frequency: holidays/special occasions only Patient Tobacco Use Status: Former Tobacco user Years Smoked: Quit 1992 Second Hand Smoke Exposure: No Review of Systems Const All systems reviewed & are unremarkable except as noted in HPI and below Denies snoring Eyes Reports no additional complaints ENT Reports no additional complaints Card Denies chest pain, Denies irregular heart rhythm and Denies leg edema Resp Denies cough, Denies snoring and Denies wheezing GI Reports no additional complaints Reports no additional complaints Musc Reports no additional complaints Skin/Breast Reports system reviewed and no additional complaints, except as documented Neuro Reports no additional complaints Psych Reports no additional complaints Aller/Immun Denies wheezing Physical Exam Vital Signs: Last Vital Signs Pulse 72 08/16/25 15:05 BP 110/70 08/16/25 15:05 Pulse Ox 100 08/16/25 15:05 Oxygen Delivery Method Room Air 08/16/25 15:05 BMI result Body Mass Index 38.0 Const General: healthy appearing, comfortable, no acute distress, alert and awake Orientation/consciousness: patient oriented x3 HEENT Head: Yes normal to inspection General nose exam: No nasal polyps present and No nasal discharge present Face and sinus: Yes sinuses nontender Mouth: oropharynx normal Throat: Yes posterior oropharynx normal Eyes General: appearance normal, both eyes and all related structures Neck Neck: Yes normal visual inspection, Yes no lymphadenopathy, Yes trachea midline and Yes no JVD Thyroid: Thyroid normal Chest Chest palpation & inspection: normal inspection of the chest, normal palpation of entire chest wall and no tenderness Resp Effort & Inspection: normal respiratory effort Auscultation: clear to auscultation bilaterally, no rales and no wheezes Percussion: percussion normal Cardio Palpation: normal PMI Rate: regular rate Rhythm: regular rhythm Heart sounds: no gallops and no murmurs Peripheral pulses: Peripheral pulses 2+ throughout GI Palpation (GI): Soft to palpation, nontender, No hepatosplenomegaly present and no masses Auscultation: normal bowel sounds Back/Spine/Pelvis Thoracic/Lumbar Spine: thoracic and lumbar spine normal to inspection Skin General skin exam: no rashes or lesions noted Neuro General: patient oriented x3 and no focal motor deficits Cranial nerves: Yes CN's II-XII intact bilaterally Extrem General: Yes normal to inspection, Yes no clubbing, cyanosis or edema and Yes no calf tenderness Psych Appearance: grossly normal and well kempt Speech and movement: Normal speech and movement present Results Reviewed Results Reviewed: Compliance report for the last 30 nights reviewed. He has used 26/30 nights. Average use it per night 6 hours 45 minutes. Pressure 8 cm. No significant air leak. Residual AHI only 0.3 Assessment & Plan Assessment & Plan (1) WHITNEY (obstructive sleep apnea): Comment: SHE HAS LONG-STANDING HISTORY OF OBSTRUCTIVE SLEEP APNEA. SHE IS DEPENDENT UPON USING CPAP AT NIGHT. CONTINUES TO USE THE CPAP VERY OPTIMALLY AND DOING WELL. HER NEW CPAP MACHINE IS WORKING WELL AND SHE IS HAPPY WITH THAT. Code(s): G47.33 - Obstructive sleep apnea (adult) (pediatric) Category: Medical Plan: Commended for good compliance and advised to continue using the CPAP every night . (2) Somnolence, daytime: Comment: IN SPITE OF USING CPAP VERY OPTIMALLY SHE CONTINUES TO HAVE DAYTIME SOMNOLENCE . FOR THIS REASON SHE NEEDS TO TAKE PROVIGIL( MODAFANIL) 200 DAILY. WHICH KEEPS HER ALERT DURING THE DAYTIME Code(s): R40.0 - Somnolence Category: Medical Plan: CONTINUE TAKING MODAFINIL 200 MG ONCE A DAY. Coding Level of Care Code Est Pt Level 3 (98334) Diagnoses WHITNEY (obstructive sleep apnea) G47.33 Somnolence, daytime R40.0
--- OUTSIDE RECORDS SUMMARY | 2025-08-17 13:00 | XMS_ITS | Clinical Summary ---
Author Organization [facility] Address [facility] [employer] [address] [address] Phone Care Team Providers Care Media Assistant Name Role Phone Claudio Ledbetter MD Primary [...] the name of Dr. Kenneth Redding of [facility] if she wishes to follow up on [...] Type Department Care Team Description 06/14/2025 Telephone [facility] [address] [place] [address] Dr Shaw, [place] [address] Gayle Araya LPN Mammogram Order from Last [...] patient's age to complete this topic IPV VACCINES Aged Out No longer eligi ble based on patient's age to complete this topic MENINGOCOCCAL VACCINES (ACWY) Aged Out No longer eligible based on patient's age to complete this topic MENINGOCOCCAL VACCINES (B) Aged Out N o longer eligible based on patient's age to complete this topic Medical Devices Implanted Type Area Box Car Checker Device Identifier Shelf Expiration Date Model / [...] 49 Admit Type: Outpatient Gender: Female Room: [facility] Referring MD: Claudio Ledbetter MD Exam Type: [...] monitored continuously. The Olympus adult variable colonoscope [id number] #5 was introduced through the anus and [...] 8:14 AM Procedure Code(s): --- Professional --- 18880, Colonoscopy, flexible; diagnostic, including collection of specimen(s) by brushing or washing, when performed (separateprocedure) --- Technical --- 04044, Colonoscopy, flexible; diagnostic, including collection of specimen(s) by brushing or washing, when performed (separateprocedure) Diagnosis Code(s): --- Professional --- R10.30, Lower abdominal pain, unspecified --- Technical --- R10.30, Lower abdominal pain, unspecified CPT copyright 2016 [employer]. All rights reserved. The codes documented in this report are preliminary and upon supervisor bindery reviewmay be revised to meet current compliance requirements. [address] [id number] Claudio Ledbetter MD GI PROCEDURE ORDERABLES Final Result from Last 3 Months or Most Recently Relevant to Health Maintenance Insurance O O O O O O O O O Member Subscriber Plan / Payer (Ef fective 2016-Present) Name:Cesar Ring Relation to Subscriber:Self Name:Cesar Ring Payer ID:Not on file Type:[facility] Address: [place] [id number] Care Teams Media Assistant Relationship Specialty Start Date End Date Claudio Ledbetter MD [address] [place] [address] [address] [place] [address] PCP - General 10/02/17 Additional Source Comments The information contained in this document represents components of the legal health record. It is not the complete legal health record.[facility]
--- OUTSIDE RECORDS SUMMARY | 2025-08-17 13:00 | XMS_ITS | Clinical Summary ---
Author Organization [facility] Address [address] [place] [address] Phone Care Team Providers Care Logging Contractor Name Role Phone Bruce Monroe MD Primary Care Provider [phone] Encounters Date Type Department Care Team Description 07/02/2025 7:34 AM EDT - 07/02/2025 11:59 PM EDT [facility] [address] [address] Encounter for screening mammogram for [...] 08/31/2022 Depression Screening 09/29/2024 COVID-19 Vaccine ( season) 2025 09/01/2024, 07/17/2023, 09/24/2022, Additional history exists Influenza Vaccine (#1) 2025 4, 06/19/2023, 07/05/2022, Additional history exists Breast Cancer Screening 07/02/2027 07/02/20, 06/08/2024, 05/28/2023, Additional history exists DTaP,Tdap,and Td Vaccines (4 - Td or Tdap) 08/23/2029 08/23/2019, 07/30/2019, 07/30/2019 RSV Immunization Adult Patients (1 - 1-dose 75+ series) 2043 Zoster Vaccines Completed 03/02/2023, 10/14/2022 HIB Vaccines Aged Out No longer eligi [...] for biopsy. PQRI CPT II 3341F Code 03945, 76903 PQRI 225 CPT II 7025F TISSUE DENSITY: The breasts are almost entirely fatty. (BI-RADS Category A) IMPRESSION: Benign. BI-RADS CATEGORY: 1 - NEGATIVE RECOMMENDATION: Screening bilateral mammogram is recommended in 1 year. Mammo Location: [facility], [address] [place] [address] -------- FINAL REPORT -------- Dictated By: Noé Loaiza Dictated Date: 07/04/2025 08:57 ET Assigned Physician: Noé Loaiza Reviewed and Electronically Signed By: oNé Loaiza Signed Date: 07/04/2025 09:01 ET Workstation ID: [id number] Transcribed By: Self Edit Transcribed Date: 07/04/2025 08:57 ET Narrative 07/04/2025 9:01 AM EDT CLINICAL: The patient is a 55 years Female presenting for routine screening mammography. COMPARISON: Most recently 06/08/2024 and most remotely 07/05/2017. TECHNIQUE: Full-field digital mammography of the breasts bilaterally consisting of tomosynthesis in MLO and CC projection is performed in the Yugmae 2000-D unit. Computer aided detection utilizing the [...] MLO and CC projection is performed in theJamnographe 2000-D unit. Computer aided detection utilizing the [employer] Technologiesystem was utilized. FINDINGS: The breasts are again [...] for biopsy. PQRI CPT II 3341F Code 33527, 62177 PQRI 225 CPT II 7025F TISSUE DENSITY: The breasts are almost entirely fatty. (BI-RADS CategoryA) IMPRESSION: Benign. BI-RADS CATEGORY: 1 - NEGATIVE RECOMMENDATION: Screening bilateral mammogram is recommended in 1 year. Mammo Location: [facility], [facility], [address] [place] [address] -------- FINAL REPORT -------- Dictated By: Noé Loaiza Dictated Date: 07/04/2025 08:57 ET Assigned Physician: Noé Loaiza Reviewed and Electronically Signed By: Noé Loaiza Signed Date: 07/04/2025 09:01 ET Workstation ID: [id number] Transcribed By: Self Edit Transcribed Date: 07/04/2025 08:57 ET Radha Owusu MD IMG BI PROCEDURES Final Result from Last 3 Months Insurance [facility] Care Teams Logging Contractor Relationship Specialty Start Date End Date Bruce Monroe MD [address] [place], [place] [id number] PCP - General Internal Medicine 06/17/25
--- OUTSIDE RECORDS SUMMARY | 2025-08-17 13:00 | XMS_ITS | Encounter Summary ---
Author Organization [facility] Address [address] [facility] [address] [place] [address] Phone Care Team Providers Care Die Developer Name Role Phone Claudio Ledbetter MD Primary Care Provider Encounter Details Date Type Department Care Team (Late st Contact Info) Description 01/23/2018 Procedure Pass [facility]oscopy Admitting Dept Virtual Department [address] [place] [address] Social History Tobacco Use Types Packs/Day Years [...] on filedocumented in this encounter Care Teams Die Developer Relationship Specialty Start Date End Date Claudio Ledbetter MD [address] [place] [address] PCP - General 10/02/17 documented as of this encounter Additional Source Comments The information contained in this document represents components of the legal health record. It is not the complete legal health record.[facility]
--- OUTSIDE RECORDS SUMMARY | 2025-08-17 13:00 | XMS_ITS | Encounter Summary ---
Author Organization [facility] Address [address] [place] [address] Phone Care Team Providers Care Automatic Print Developer Name Role Phone Claudio Ledbetter MD Primary Care Provider Encounter Details Date Type Department Care Team (Late st Contact Info) Description 12/24/2017 Procedure Pass [facility], [address] [address] Social History Tobacco Use Types Packs/Day Years [...] on filedocumented in this encounter Care Teams Automatic Print Developer Relationship Specialty Start Date End Date Claudio Ledbetter MD [address] [place] [address] PCP - General 10/02/17 documented as of this encounter Additional Source Comments The information contained in this document represents components of the legal health record. It is not the complete legal health record.[facility]
--- OUTSIDE RECORDS SUMMARY | 2025-08-17 13:00 | XMS_ITS | Encounter Summary ---
Author Organization [facility] Address [address] [facility] [address] [place] [address] Phone Care Team Providers Care Hull Builder Name Role Phone Claudio Ledbetter MD Primary Care Provider Encounter Details Date Type Department Care Team (Late st Contact Info) Description 12/16/2017 Procedure Pass [facility], Ct Scan - [address] [address] Social History Tobacco Use Types Packs/Day Years [...] on filedocumented in this encounter Care Teams Hull Builder Relationship Specialty Start Date End Date Claudio Ledbetter MD [address] [place] [address] PCP - General 10/02/17 documented as of this encounter Additional Source Comments The information contained in this document represents components of the legal health record. It is not the complete legal health record.[facility]
--- OUTSIDE RECORDS SUMMARY | 2025-08-17 13:00 | XMS_ITS | Encounter Summary ---
Author Organization [facility] Address [address] [facility] [address] [place] [address] Phone Care Team Providers Care Assistant Hall Director Name Role Phone Claudio Ledbetter MD Primary Care Provider Encounter Details Date Type Department Care Team (Late st Contact Info) Description 05/09/2020 Ancillary Orders [facility],Outside Imaging [address] [place] [address] System, Provider Not In, [place] [address] Social History Tobacco Use Types Packs/Day Years [...] on filedocumented in this encounter Care Teams Assistant Hall Director Relationship Specialty Start Date End Date Claudio Ledbetter MD [address] [place] [address] [address] [place] [address] PCP - General 10/02/17 documented as of this encounter Additional Source Comments The information contained in this document represents components of the legal health record. It is not the complete legal health record.[facility]
--- OUTSIDE RECORDS SUMMARY | 2025-08-17 13:00 | XMS_ITS | Data Portability ---
Author Organization [place] [facility] Address [address] [place] [address] Care Team Providers Care Cut Plug Packer Name Role Phone LUKE QUICK OTHER [phone] Assessment Encounter Date Assessment Date Assessment LastModified [...] Time Dysfuncti on of eustachia n tube 86508196 Active 2014 Eustachia n tube dysfuncti on; Note: Date Diagnosed : 05/03/2015 11:41 AM (381.81) Not Available [facility] 4 03:14:58 Bilateral disorder of Eustachia n tubes 64517273354 83686 Active 2014 Other specified disorders of Eustachia n tube, bilateral ; Note: Date Diagnosed : 08/07/2015 4:32 PM (H69.83) Not Available [facility] 4 03:14:57 Pain of right temporoma ndibular joint 48199585286 833091 Active 2017 Arthralgi a of right temporoma ndibular joint; Note: Date Diagnosed : 10/03/2017 1:55 PM (M26.621) Not Available [facility] 4 03:14:58 Otalgia of right ear 0031478747 Active 2017 Otalgia, right ear; Note: Date Diagnosed : 10/03/2017 2:10 PM (H92.01) Not Available [facility] 4 03:14:57 Dizziness and giddiness 758646939 Active 2017 Dizziness and giddiness ; Note: Date Diagnosed : 10/03/2017 1:59 PM (R42) Not Available [facility] 4 03:14:57 Benign paroxysma l positiona l vertigo 283039453 Active 2018 Benign paroxysma l vertigo, right ear; Note: Date Diagnosed : 11/02/2018 3:59 PM (H81.11) Not Available [facility] 4 03:14:57 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 - [facility] 5 14:21:06 Abnormal auditory perceptio n 13002003 Active 2024 MATT LEAVITT [place], [facility]3]-A [address] [facility],[place] [address], [place], [address] , [facility] 5 14:21:17 Bilateral tinnitus 68664183338 02 Active 2024 SERGE DICK MD [address] [facility],[place] [address], [place], [address] , [facility] 5 15:16:48 Problem Notes None recorded. Procedures Surgical History Date Name Laterality Status Provider Name and Address Organization Details Recorded Time 10/07/2024 Air & Speech Audio with Tymps - 55271, 39074 & 32594 completed MATT LEAVITT [place], [facility]3]-A [address] [facility],[place] [address], [place], [address], [facility] 10/07/2024 14:21:25 Imaging Results None recorded. Procedure Notes None recorded. Medical Equipment None Reported. Medications Name Sig Start Date Stop Date Status Note LastModified by Organization Details LastModified Time bupropion HCl SR 150 mg tablet,12 hr sustained -release 11/09 completed Medicati on ID: [id number] D uration Value: 30 Brand Name: bupropio n HCl Send Method: E-Prescr ibed Sub s Allowed: subs OK Speci al Instruct ion: TAKE 1 TABLET BY MOUTH TWICE A DAY Medi cationGe nericNam e: bupropio n HCl Not Available Not Available Not Available vitamin A 2,400 mcg capsule 11/09 completed Medicati on ID: [id number] Br and Name: vitamin A Send Method: E-Prescr ibed Sub s Allowed: subs OK Medic ationGen ericName : vitamin A Not Available Not Available Not Available azithromy harley 250 mg tablet active Medicati on ID: [id number] B rand Name: azithrom ycin Sen d Method: E-Prescr ibed Sub s Allowed: subs OK Medic ationGen ericName : azithrom ycin Not Available Not Available Not Available Claritin 10 mg tablet 11/09 completed Medicati on ID: [id number] Br and Name: Claritin Send Method: E-Prescr ibed Sub s Allowed: subs OK Medic ationGen ericName : Claritin Not Available Not Available Not Available Provigil 100 mg tablet 11/09 completed Medicati on ID: [id number] Br and Name: Provigil Send Method: E-Prescr ibed Sub s Allowed: subs OK Medic ationGen ericName : Provigil Not Available Not Available Not Available modafinil 200 mg tablet TAKE 1 TABLET BY MOUTH EVERY DAY active Not Available Not Available No t Available meclizine 25 mg tablet active Medicati on ID: [id number] B rand Name: meclizin e Send Method: E-Prescr ibed Sub s Allowed: subs OK Medic ationGen ericName : meclizin e Not Available Not Available Not Available azelastin e 137 mcg (0.1 %) nasal spray INHALE 1 SPRAYS EACH NOSTRIL TWICE DAILY active Not Available Not Available No t Available albuterol sulfate HFA 90 mcg/actua tion aerosol inhaler active Medicati on ID: [id number] B rand Name: albutero l sulfate Send [...] mg tablet 11/09 completed Medicati on ID: [id number] D uration Value: 90 Brand Name: fludroco [...] ICD10 Code Diagnosis IMO Codes Diagnosis Note 60402 SERGE DICK MD [facility] [address] [address] 10/07/2024 13:45:49 10/07/2024 15:17:31 Vertigo 768841551 R42 Abnormal a uditory perception 36997136 H93.299 Audiologic al evaluation results: Right ear: Normal hearing with excellent word recognitio n. Left ear: Normal hearing with excellent word recognitio n. Tympanomet ry: Right Ear:Type Ad Left Ear:Type A Bilateral tinnitus 73100 46803 102 H93.13 Health Concerns Section Related Observation LastModified by Organization Detai ls LastModified Time None Recorded Concern Status LastModified by Organization Details LastModified Time None Recorded Advance Directives Directive None Recorded Payers Insurance Date Sequence Insurance Name Policy Number Policy Tian Covered Member ID Tian Member ID Guarantor Name 10/07/[address] [place] [address] [id number] Cesar Cadet [id number] Cesar Cadet Notes Date Note Type Note Provider Name and Address Organization Details Recorded Time 10/07/2024 text/html ROS as noted in the HPI dizzy and abnormal hearingfelt like pop rocks in earsonset 06/2024 with dizzyreturned to PTfeels some improvement 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 audio normal. SERGE DICK MD [address] [place] [address], [place], [address], [facility] - [facility] 10/07/2024 15:17:17 OBGyn Episode No OBEpisode recorded.
== END 2025-08-16 15:31 | disposition home or self-care (01) ==
LOC: HO.HPS 14:59
PROVIDERS: PCP Internal Medicine; Visit Provider Internal Medicine
DX: G47.33 Obstructive sleep apnea (adult) (pediatric) (principal); R40.0 Somnolence
CPT/HCPCS: 99213

== ENCOUNTER 2025-08-23 07:00 | Outpatient (REF) | payer OTHER, SELFPAY ==
[2025-08-23 10:37] LABS: MANUAL DIFF FLAG NO
[2025-08-23 11:04] LABS: Hematocrit 38.3 % (37.0-47.0); Hemoglobin 12.3 g/dl (12.0-16.0); Imm Gran Abs Auto 0.02 X10*3/uL (0.00-0.03); Imm Gran Pct Auto 0.4 % (0.0-0.4); Lymphocytes Absolute Auto 1.6 X10*3/uL (1.2-4.9); Mean Corpuscular HGB Conc 32.1 g/dl (31.0-35.0); Mean Corpuscular Hemoglobin 29.9 pg (27.0-33.0); Mean Corpuscular Volume 93.0 fL (80.0-98.0); NRBC Abs Auto 0.000 X10*3/uL (0.0-0.012); NRBC Pct Auto 0.0 /100WBC (0.0-0.2); Platelet Count 200 X10*3/uL (160-400); Red Blood Count 4.12 X10*6/uL (4.20-5.50); White Blood Count 5.4 X10*3/uL (4.8-10.8)
[2025-08-23 11:28] LABS: Alanine Aminotransferase 12 U/L (0-31); Albumin Level 4.5 g/dL (3.5-5.0); Alkaline Phosphatase 61 U/L (39-117); Anion Gap 12 (12-20); Aspartate Amino Transferase 20 U/L (5-31); Blood Urea Nitrogen 17 mg/dL (9-16); Calcium 9.3 mg/dL (8.4-10.2); Carbon Dioxide 27 mmol/L (22-29); Chloride 108 mmol/L (96-108); Cholesterol 210 mg/dL (<200); Estimated Glomerular Filt Rate > 60; HDL Cholesterol 61 mg/dL (>40); Iron 106 mcg/dL (30-160); Percent Iron Saturation 39 % (15-50); Potassium 3.9 mmol/L (3.3-5.1); Sodium 143 mmol/L (135-145); Total Iron Binding Capacity 272 mcg/dL (228-428); Total Protein 6.9 g/dL (6.5-8.0); Triglycerides 239 mg/dL (<150); Unsaturated Iron Binding 166 ug/dL
[2025-08-23 11:46] LABS: Appearance Urine Cloudy; Glucose Urine UA Negative (Negative); PH 7.5 (5.0-9.0); Specific Gravity - Urine 1.015 (1.005-1.025)
== END 2025-08-23 07:01 | disposition home or self-care (01) ==
LOC: HO.LNP 07:00
PROVIDERS: Visit Provider Internal Medicine
DX: Z00.00 Encounter for general adult medical examination without abnormal findings (principal); E06.3 Autoimmune thyroiditis; D50.9 Iron deficiency anemia, unspecified
CPT/HCPCS: 80053; 80061; 81001; 83540; 84443; 85025